=== PATIENT | male | born 1940 ===

== ENCOUNTER 2019-03-10 05:36 | Outpatient (RCR) | payer MEDICARE, MEDICAID, SELFPAY | END 2019-03-20 00:01 | LOC: LAB 05:36 | PROVIDERS: Family Provider Family Medicine; Visit Provider Nurse Practitioner Family | DX: E11.9 Type 2 diabetes mellitus without complications (principal); I10 Essential (primary) hypertension; R60.9 Edema, unspecified | CPT/HCPCS: 36415; 80048; 83036; 85025 ==

== ENCOUNTER 2019-03-23 15:20 | Outpatient (CLI) | payer MEDICARE, MEDICAID, SELFPAY | END 2019-03-23 15:21 | disposition home or self-care (01) | LOC: LAB 03-23 16:00 | PROVIDERS: Family Provider Family Medicine; PCP Family Medicine; Visit Provider Family Medicine | DX: D64.9 Anemia, unspecified (principal) | CPT/HCPCS: 82652 ==

== ENCOUNTER 2019-06-14 17:30 | Emergency (ER) | payer MEDICARE, SELFPAY ==
[2019-06-14] VITALS (7 sets, daily range): BP systolic 135–166; BP diastolic 66–92; PULSE 93–110; RESP 12–18; TEMP 36.8; O2SAT 93–100; BMI 18.6
--- NOTE | 2019-06-14 17:34 | ED_ITS ---
Entered by Nancy Singer, acting as scribe for Michael Paul DO Documented by User: An Britt MD 06/15/19 05:44 HPI - Psych General: Chief Complaint: Psychiatric Symptoms Stated Complaint: PSYCH EVAL Time Seen by Provider: 06/14/19 17:45 PFS ED PFSH: Social History Smoking and tobacco status: never smoked MDM - Psych MDM Narrative: Medical decision making narrative: Patient presents here with agitation and threatened the nurse at the halfway. Patient is medically cleared and we are seeking placement at this time for geriatric psych. Patient's care turned over to Dr. Paul. Lab Data: Labs: Lab Results 06/14/19 06/14/19 06/14/19 Range/Units 18:18 18:18 19:10 WBC 10.3 H (4.0-10.0) 10^3/ uL RBC 3.93 L (4.1-5.3) 10^6/u L Hgb 12.5 (11.7-16.6) g/dL Hct 39.3 L (42.0-52.0) % MCV 100.0 H (80-94) fL MCH 31.8 (28.0-34.0) pg MCHC 31.8 (30.0-36.0) g/dL RDW 12.5 (12.1-15.1) % Plt Count 444 H (130-400) 10^3/c mm MPV 9.5 (7.4-10.4) fL Neut % (Auto) 67.0 % Lymph % (Auto) 25.5 % Martin % (Auto) 6.3 % Eos % (Auto) 0.7 % Baso % (Auto) 0.1 % Neut # (Auto) 6.9 (1.8-7.7) 10^3/u L Lymph # (Auto) 2.6 (0.8-4.8) 10^3/u L Martin # (Auto) 0.7 (0.2-0.9) 10^3/u L Eos # (Auto) 0.1 (0.0-0.8) 10^3/u L Baso # (Auto) 0.0 (0.0-0.1) 10^3/u L Nucleated RBC % (a uto) 0 % Nucleated RBCs # 0.0 /100WBC Sodium 140 (136-145) mmol/L Potassium 4.5 (3.5-5.1) mmol/L Chloride 102 (98-107) mmol/L Carbon Dioxide 28 (22-29) mmol/L Anion Gap 14.5 (5-19) BUN 14 (8-23) mg/dL Creatinine 0.6 L (0.7-1.2) mg/dL Glucose 360 H (65-115) mg/dL POC Glucose (70-110) mg/dL Calculated Osmolal ity 301 H (285-295) mOsm/k g Calcium 9.9 (8.5-10.5) mg/dL Total Bilirubin 0.4 (0.15-1.2) mg/dL AST 12 (0-40) U/L ALT < 5 (0-41) U/L Alkaline Phosphata se 76 (40-130) IU/L Total Protein 7.3 (6.6-8.7) g/dL Albumin 3.7 (3.5-5.2) g/dL Globulin 3.6 (1.3-4.6) g/dL TSH 1.15 (0.27-4.20) uIU/ mL Urine Color Yellow (Yellow) Urine Appearance Clear (CLEAR) Urine pH 5 (5-7) Ur Specific Gravit y 1.020 (1.005-1.030) Urine Protein Trace (Negative) Urine Glucose (UA) 4+ H (Normal) Urine Ketones 1+ H (Negative) Urine Blood Neg (Negative) Urine Nitrate Negative (Negative) Urine Bilirubin Neg (NEGATIVE) Urine Urobilinogen 1 H (Negative) mg/dL Ur Leukocyte Miranda ase Negative (Negative) Urine RBC None (0-2) /hpf Urine WBC 0-4 H (0-5) /hpf Ur Squamous Epith Cells None (0-5) Urine Bacteria Trace (NONE) Urine Mucus 1+ Salicylates < 0.3 L (3-10) mg/dL Urine Opiates Scre en (Negative) ng/mL Acetaminophen < 5.0 L (10-30) ug/mL Ur Barbiturates Sc reen (Negative) ng/mL Ur Phencyclidine S crn (Negative) ng/mL Ur Amphetamines Sc reen (Negative) ng/mL U Benzodiazepines Scrn (Negative) ng/mL Urine Cocaine Scre en (Negative) ng/mL U Marijuana (THC) Screen (Negative) ng/mL Ethyl Alcohol < 10 (0-10) mg/dL Influenza Type A A g (Negative) POC Influenza B Ag (Negative) 06/14/19 06/15/19 06/15/19 Range/Units 19:10 00:45 02:05 WBC (4.0-10.0) 10^3/ uL RBC (4.1-5.3) 10^6/u L Hgb (11.7-16.6) g/dL Hct (42.0-52.0) % MCV (80-94) fL MCH (28.0-34.0) pg MCHC (30.0-36.0) g/dL RDW (12.1-15.1) % Plt Count (130-400) 10^3/c mm MPV (7.4-10.4) fL Neut % (Auto) % Lymph % (Auto) % Martin % (Auto) % Eos % (Auto) % Baso % (Auto) % Neut # (Auto) (1.8-7.7) 10^3/u L Lymph # (Auto) (0.8-4.8) 10^3/u L Martin # (Auto) (0.2-0.9) 10^3/u L Eos # (Auto) (0.0-0.8) 10^3/u L Baso # (Auto) (0.0-0.1) 10^3/u L Nucleated RBC % (a uto) % Nucleated RBCs # /100WBC Sodium (136-145) mmol/L Potassium (3.5-5.1) mmol/L Chloride (98-107) mmol/L Carbon Dioxide (22-29) mmol/L Anion Gap (5-19) BUN (8-23) mg/dL Creatinine (0.7-1.2) mg/dL Glucose (65-115) mg/dL POC Glucose 261 243 (70-110) mg/dL Calculated Osmolal ity (285-295) mOsm/k g Calcium (8.5-10.5) mg/dL Total Bilirubin (0.15-1.2) mg/dL AST (0-40) U/L ALT (0-41) U/L Alkaline Phosphata se (40-130) IU/L Total Protein (6.6-8.7) g/dL Albumin (3.5-5.2) g/dL Globulin (1.3-4.6) g/dL TSH (0.27-4.20) uIU/ mL Urine Color (Yellow) Urine Appearance (CLEAR) Urine pH (5-7) Ur Specific Gravit y (1.005-1.030) Urine Protein (Negative) Urine Glucose (UA) (Normal) Urine Ketones (Negative) Urine Blood (Negative) Urine Nitrate (Negative) Urine Bilirubin (NEGATIVE) Urine Urobilinogen (Negative) mg/dL Ur Leukocyte Miranda ase (Negative) Urine RBC (0-2) /hpf Urine WBC (0-5) /hpf Ur Squamous Epith Cells (0-5) Urine Bacteria (NONE) Urine Mucus Salicylates (3-10) mg/dL Urine Opiates Scre en Positive H (Negative) ng/mL Acetaminophen (10-30) ug/mL Ur Barbiturates Sc reen Negative (Negative) ng/mL Ur Phencyclidine S crn Negative (Negative) ng/mL Ur Amphetamines Sc reen Negative (Negative) ng/mL U Benzodiazepines Scrn Negative (Negative) ng/mL Urine Cocaine Scre en Negative (Negative) ng/mL U Marijuana (THC) Screen Negative (Negative) ng/mL Ethyl Alcohol (0-10) mg/dL Influenza Type A A g (Negative) POC Influenza B Ag (Negative) 06/15/19 Range/Units 08:35 WBC (4.0-10.0) 10^3/ uL RBC (4.1-5.3) 10^6/u L Hgb (11.7-16.6) g/dL Hct (42.0-52.0) % MCV (80-94) fL MCH (28.0-34.0) pg MCHC (30.0-36.0) g/dL RDW (12.1-15.1) % Plt Count (130-400) 10^3/c mm MPV (7.4-10.4) fL Neut % (Auto) % Lymph % (Auto) % Martin % (Auto) % Eos % (Auto) % Baso % (Auto) % Neut # (Auto) (1.8-7.7) 10^3/u L Lymph # (Auto) (0.8-4.8) 10^3/u L Martin # (Auto) (0.2-0.9) 10^3/u L Eos # (Auto) (0.0-0.8) 10^3/u L Baso # (Auto) (0.0-0.1) 10^3/u L Nucleated RBC % (a uto) % Nucleated RBCs # /100WBC Sodium (136-145) mmol/L Potassium (3.5-5.1) mmol/L Chloride (98-107) mmol/L Carbon Dioxide (22-29) mmol/L Anion Gap (5-19) BUN (8-23) mg/dL Creatinine (0.7-1.2) mg/dL Glucose (65-115) mg/dL POC Glucose (70-110) mg/dL Calculated Osmolal ity (285-295) mOsm/k g Calcium (8.5-10.5) mg/dL Total Bilirubin (0.15-1.2) mg/dL AST (0-40) U/L ALT (0-41) U/L Alkaline Phosphata se (40-130) IU/L Total Protein (6.6-8.7) g/dL Albumin (3.5-5.2) g/dL Globulin (1.3-4.6) g/dL TSH (0.27-4.20) uIU/ mL Urine Color (Yellow) Urine Appearance (CLEAR) Urine pH (5-7) Ur Specific Gravit y (1.005-1.030) Urine Protein (Negative) Urine Glucose (UA) (Normal) Urine Ketones (Negative) Urine Blood (Negative) Urine Nitrate (Negative) Urine Bilirubin (NEGATIVE) Urine Urobilinogen (Negative) mg/dL Ur Leukocyte Miranda ase (Negative) Urine RBC (0-2) /hpf Urine WBC (0-5) /hpf Ur Squamous Epith Cells (0-5) Urine Bacteria (NONE) Urine Mucus Salicylates (3-10) mg/dL Urine Opiates Scre en (Negative) ng/mL Acetaminophen (10-30) ug/mL Ur Barbiturates Sc reen (Negative) ng/mL Ur Phencyclidine S crn (Negative) ng/mL Ur Amphetamines Sc reen (Negative) ng/mL U Benzodiazepines Scrn (Negative) ng/mL Urine Cocaine Scre en (Negative) ng/mL U Marijuana (THC) Screen (Negative) ng/mL Ethyl Alcohol (0-10) mg/dL Influenza Type A A g Negative (Negative) POC Influenza B Ag Negative (Negative) Imaging Data^: CXR: Attestation: I personally reviewed and interpreted this imaging study as follows: My impression: no acute abnormality CT Head: Radiologist's impression: [address] [address] [address] Scan Report Signed Patient: Shaun Beltran Unit #: [id number] : 1940 Age/Sex: 78 / M ADM Date: 06/14/19 Loc: ER Room/Bed: Attending Dr: Ordering Provider/Ordering MD: An Britt MD Date of Service: 06/15/19 Procedure(s): CT head wo con* [id number] Accession Number(s): [id number] Report Number: [id number] PROCEDURE INFORMATION: Exam: CT Head Without Contrast Exam date and time: 06/15/2019 1:57 AM Age: 78 years old Clinical indication: Altered mental status/memory loss; Confusion or disorientation TECHNIQUE: Imaging protocol: Computed tomography of the head without contrast. Total DLP: 840.91 mGy-cm Radiation optimization: All CT scans at this facility use at least one of these dose optimization techniques: automated exposure control; mA and/or kV adjustment per patient size (includes targeted exams where dose is matched to clinical indication); or iterative reconstruction. COMPARISON: CT head wo con* [id number] 07/16/2016 10:39 PM FINDINGS: Limitations: Motion artifacts on some of the slices. Brain: Enlarged subarachnoid spaces, especially prominent in each anterior middle cranial fossa, again evident. Minimal chronic white matter disease still likely. No suggestion of edema in the brain. No hemorrhage. Ventricles: Continued normal 4th ventricle. No change in the slight enlargement of the 3rd and lateral ventricles. 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 Sinuses: Minimal mucosal thickening in the right maxillary sinus. Still no air-fluid levels. Mastoid air cells: Mastoids still unremarkable. Soft tissues: Unremarkable. Vasculature: Continued arterial calcifications. CT/CT head wo con* [id number] IMPRESSION: No acute findings. Chronic abnormalities detailed above. Discharge Plan Discharge Patient Disposition: Xfer Psychiatric Hosp Clinical Impression: Agitation Condition: Stable Referrals: Jack Purcell DO [Primary Care Provider] - Discharge Date/Time: 06/15/19 14:32 Sign Out Sign Out Data: Patient Sign Out occurred on 06/15/19 at 06:04. Patient's care was discussed, and care was transferred from to Michael Paul DO. Coding Level of Care Code ED English Composition Teacher for Chg Fwd Exam Comprehensive Documented by User: Michael Paul DO 06/15/19 16:55 HPI - Psych General: Chief Complaint: Psychiatric Symptoms Stated Complaint: PSYCH EVAL Time Seen by Provider: 06/14/19 17:45 Source: patient and EMS Mode of arrival: EMS Limitations: no limitations History of Present Illness: HPI Narrative: 78 yo male presents from the halfway. pt has no complaints. per report from the halfway the pt was aggressive and none compliant with his medications at halfway, and he told a nursing he would wipe up the floor with her blood. pt denies any other symptoms at this time. MD complaint: other (per halfway the pt has been agressive and not taking his medications) Onset (ago): hour(s) (just [employer]) Duration: getting worse History of same: No Relieving factors: none Exacerbating factors: none Associated psychiatric symptoms: none Associated symptoms: Reports no associated symptoms Treatments prior to arrival: none Review of Systems General: Reports: 10 or more systems reviewed and unremarkable except in HPI and below Const: Denies: fever, chills, body aches, change in appetite, fatigue or malaise ENMT: Denies: throat pain, ear pain, nasal discharge or nasal congestion Card: Denies: chest pain, edema, shortness of breath on exertion or shortness of breath when lying down Resp: Denies: shortness of breath, productive cough or non-productive cough GI: Denies: abdominal pain, nausea, vomiting, vomiting blood, coffee grounds in vomit, diarrhea, constipation, bloating, blood in stool or black tarry stool : Denies: flank pain, painful urination, urinary frequency or urinary urgency Skin/Breast: Denies: rash or itching PFSH ED PFSH: Social History Smoking and tobacco status: never smoked Physical Exam Const: COMMON NORMALS: no apparent distress GENERAL APPEARANCE: cooperative and comfortable ORIENTATION/CONSCIOUSNESS: Yes awake, Yes oriented to person, Yes oriented to place and Yes oriented to time HENMT: COMMON NORMALS: normocephalic, head/scalp atraumatic, hearing grossly normal bilaterally, external ears normal, EAC's normal, TM's normal bilaterally, nasal mucous membranes and turbinates normal, moist oral mucous membranes and oropharynx normal HEAD & SCALP: normocephalic and atraumatic NOSE: nasal mucous membranes and turbinates normal EXTERNAL EAR: Yes external ears normal EXTERNAL AUDITORY CANAL: EAC's normal TYMPANIC MEMBRANE: TM's normal bilaterally Eye: COMMON NORMALS: PERRL, EOMs intact bilaterally, conjunctivae normal and no scleral icterus CONJUNCTIVA: Yes conjunctivae normal PUPIL: Yes PERRL Neck/C-Spine: COMMON NORMALS: full ROM, no lymphadenopathy, supple and no JVD Lymph: LYMPHATIC: no lymphadenopathy noted and no lymphedema noted Resp: COMMON NORMALS: normal respiratory effort, no retractions, no use of accessory muscles and clear to auscultation bilaterally AUSCULTATION: clear to auscultation bilaterally Cardio: COMMON NORMALS: no JVD, regular rate, regular rhythm and no murmurs RATE: regular rate RHYTHM: regular rhythm GI: COMMON NORMALS: soft to palpation and no hepatosplenomegaly AUSCULTATION: Yes normoactive bowel sounds PALPATION: Yes soft, No tender, No guarding and Yes no hepatosplenomegaly Neuro: SENSORIUM/ORIENTATION: Yes oriented to person, Yes oriented to place and Yes oriented to time Skin: COMMON NORMALS: no rashes or lesions noted GENERAL SKIN EXAM: no rashes or lesions noted MDM - Psych MDM Narrative: Medical decision making narrative: Care assumed a change of shift from Dr. Alfaro. We are still trying to make arrangements for transfer. Patient remained stable eye exam unchanged he did have a few outbursts but were only verbal and did not need any chemical or physical restraints. Patient eventually was [facility] at [facility] and was transferred via EMS. Lab Data: Labs: Lab Results 06/14/19 06/14/19 06/14/19 Range/Units 18:18 18:18 19:10 WBC 10.3 H (4.0-10.0) 10^3/ uL RBC 3.93 L (4.1-5.3) 10^6/u L Hgb 12.5 (11.7-16.6) g/dL Hct 39.3 L (42.0-52.0) % MCV 100.0 H (80-94) fL MCH 31.8 (28.0-34.0) pg MCHC 31.8 (30.0-36.0) g/dL RDW 12.5 (12.1-15.1) % Plt Count 444 H (130-400) 10^3/c mm MPV 9.5 (7.4-10.4) fL Neut % (Auto) 67.0 % Lymph % (Auto) 25.5 % Martin % (Auto) 6.3 % Eos % (Auto) 0.7 % Baso % (Auto) 0.1 % Neut # (Auto) 6.9 (1.8-7.7) 10^3/u L Lymph # (Auto) 2.6 (0.8-4.8) 10^3/u L Martin # (Auto) 0.7 (0.2-0.9) 10^3/u L Eos # (Auto) 0.1 (0.0-0.8) 10^3/u L Baso # (Auto) 0.0 (0.0-0.1) 10^3/u L Nucleated RBC % (a uto) 0 % Nucleated RBCs # 0.0 /100WBC Sodium 140 (136-145) mmol/L Potassium 4.5 (3.5-5.1) mmol/L Chloride 102 (98-107) mmol/L Carbon Dioxide 28 (22-29) mmol/L Anion Gap 14.5 (5-19) BUN 14 (8-23) mg/dL Creatinine 0.6 L (0.7-1.2) mg/dL Glucose 360 H (65-115) mg/dL POC Glucose (70-110) mg/dL Calculated Osmolal ity 301 H (285-295) mOsm/k g Calcium 9.9 (8.5-10.5) mg/dL Total Bilirubin 0.4 (0.15-1.2) mg/dL AST 12 (0-40) U/L ALT < 5 (0-41) U/L Alkaline Phosphata se 76 (40-130) IU/L Total Protein 7.3 (6.6-8.7) g/dL Albumin 3.7 (3.5-5.2) g/dL Globulin 3.6 (1.3-4.6) g/dL TSH 1.15 (0.27-4.20) uIU/ mL Urine Color Yellow (Yellow) Urine Appearance Clear (CLEAR) Urine pH 5 (5-7) Ur Specific Gravit y 1.020 (1.005-1.030) Urine Protein Trace (Negative) Urine Glucose (UA) 4+ H (Normal) Urine Ketones 1+ H (Negative) Urine Blood Neg (Negative) Urine Nitrate Negative (Negative) Urine Bilirubin Neg (NEGATIVE) Urine Urobilinogen 1 H (Negative) mg/dL Ur Leukocyte Miranda ase Negative (Negative) Urine RBC None (0-2) /hpf Urine WBC 0-4 H (0-5) /hpf Ur Squamous Epith Cells None (0-5) Urine Bacteria Trace (NONE) Urine Mucus 1+ Salicylates < 0.3 L (3-10) mg/dL Urine Opiates Scre en (Negative) ng/mL Acetaminophen < 5.0 L (10-30) ug/mL Ur Barbiturates Sc reen (Negative) ng/mL Ur Phencyclidine S crn (Negative) ng/mL Ur Amphetamines Sc reen (Negative) ng/mL U Benzodiazepines Scrn (Negative) ng/mL Urine Cocaine Scre en (Negative) ng/mL U Marijuana (THC) Screen (Negative) ng/mL Ethyl Alcohol < 10 (0-10) mg/dL Influenza Type A A g (Negative) POC Influenza B Ag (Negative) 06/14/19 06/15/19 06/15/19 Range/Units 19:10 00:45 02:05 WBC (4.0-10.0) 10^3/ uL RBC (4.1-5.3) 10^6/u L Hgb (11.7-16.6) g/dL Hct (42.0-52.0) % MCV (80-94) fL MCH (28.0-34.0) pg MCHC (30.0-36.0) g/dL RDW (12.1-15.1) % Plt Count (130-400) 10^3/c mm MPV (7.4-10.4) fL Neut % (Auto) % Lymph % (Auto) % Martin % (Auto) % Eos % (Auto) % Baso % (Auto) % Neut # (Auto) (1.8-7.7) 10^3/u L Lymph # (Auto) (0.8-4.8) 10^3/u L Martin # (Auto) (0.2-0.9) 10^3/u L Eos # (Auto) (0.0-0.8) 10^3/u L Baso # (Auto) (0.0-0.1) 10^3/u L Nucleated RBC % (a uto) % Nucleated RBCs # /100WBC Sodium (136-145) mmol/L Potassium (3.5-5.1) mmol/L Chloride (98-107) mmol/L Carbon Dioxide (22-29) mmol/L Anion Gap (5-19) BUN (8-23) mg/dL Creatinine (0.7-1.2) mg/dL Glucose (65-115) mg/dL POC Glucose 261 243 (70-110) mg/dL Calculated Osmolal ity (285-295) mOsm/k g Calcium (8.5-10.5) mg/dL Total Bilirubin (0.15-1.2) mg/dL AST (0-40) U/L ALT (0-41) U/L Alkaline Phosphata se (40-130) IU/L Total Protein (6.6-8.7) g/dL Albumin (3.5-5.2) g/dL Globulin (1.3-4.6) g/dL TSH (0.27-4.20) uIU/ mL Urine Color (Yellow) Urine Appearance (CLEAR) Urine pH (5-7) Ur Specific Gravit y (1.005-1.030) Urine Protein (Negative) Urine Glucose (UA) (Normal) Urine Ketones (Negative) Urine Blood (Negative) Urine Nitrate (Negative) Urine Bilirubin (NEGATIVE) Urine Urobilinogen (Negative) mg/dL Ur Leukocyte Miranda ase (Negative) Urine RBC (0-2) /hpf Urine WBC (0-5) /hpf Ur Squamous Epith Cells (0-5) Urine Bacteria (NONE) Urine Mucus Salicylates (3-10) mg/dL Urine Opiates Scre en Positive H (Negative) ng/mL Acetaminophen (10-30) ug/mL Ur Barbiturates Sc reen Negative (Negative) ng/mL Ur Phencyclidine S crn Negative (Negative) ng/mL Ur Amphetamines Sc reen Negative (Negative) ng/mL U Benzodiazepines Scrn Negative (Negative) ng/mL Urine Cocaine Scre en Negative (Negative) ng/mL U Marijuana (THC) Screen Negative (Negative) ng/mL Ethyl Alcohol (0-10) mg/dL Influenza Type A A g (Negative) POC Influenza B Ag (Negative) 06/15/19 Range/Units 08:35 WBC (4.0-10.0) 10^3/ uL RBC (4.1-5.3) 10^6/u L Hgb (11.7-16.6) g/dL Hct (42.0-52.0) % MCV (80-94) fL MCH (28.0-34.0) pg MCHC (30.0-36.0) g/dL RDW (12.1-15.1) % Plt Count (130-400) 10^3/c mm MPV (7.4-10.4) fL Neut % (Auto) % Lymph % (Auto) % Martin % (Auto) % Eos % (Auto) % Baso % (Auto) % Neut # (Auto) (1.8-7.7) 10^3/u L Lymph # (Auto) (0.8-4.8) 10^3/u L Martin # (Auto) (0.2-0.9) 10^3/u L Eos # (Auto) (0.0-0.8) 10^3/u L Baso # (Auto) (0.0-0.1) 10^3/u L Nucleated RBC % (a uto) % Nucleated RBCs # /100WBC Sodium (136-145) mmol/L Potassium (3.5-5.1) mmol/L Chloride (98-107) mmol/L Carbon Dioxide (22-29) mmol/L Anion Gap (5-19) BUN (8-23) mg/dL Creatinine (0.7-1.2) mg/dL Glucose (65-115) mg/dL POC Glucose (70-110) mg/dL Calculated Osmolal ity (285-295) mOsm/k g Calcium (8.5-10.5) mg/dL Total Bilirubin (0.15-1.2) mg/dL AST (0-40) U/L ALT (0-41) U/L Alkaline Phosphata se (40-130) IU/L Total Protein (6.6-8.7) g/dL Albumin (3.5-5.2) g/dL Globulin (1.3-4.6) g/dL TSH (0.27-4.20) uIU/ mL Urine Color (Yellow) Urine Appearance (CLEAR) Urine pH (5-7) Ur Specific Gravit y (1.005-1.030) Urine Protein (Negative) Urine Glucose (UA) (Normal) Urine Ketones (Negative) Urine Blood (Negative) Urine Nitrate (Negative) Urine Bilirubin (NEGATIVE) Urine Urobilinogen (Negative) mg/dL Ur Leukocyte Miranda ase (Negative) Urine RBC (0-2) /hpf Urine WBC (0-5) /hpf Ur Squamous Epith Cells (0-5) Urine Bacteria (NONE) Urine Mucus Salicylates (3-10) mg/dL Urine Opiates Scre en (Negative) ng/mL Acetaminophen (10-30) ug/mL Ur Barbiturates Sc reen (Negative) ng/mL Ur Phencyclidine S crn (Negative) ng/mL Ur Amphetamines Sc reen (Negative) ng/mL U Benzodiazepines Scrn (Negative) ng/mL Urine Cocaine Scre en (Negative) ng/mL U Marijuana (THC) Screen (Negative) ng/mL Ethyl Alcohol (0-10) mg/dL Influenza Type A A g Negative (Negative) POC Influenza B Ag Negative (Negative) Discharge Plan Discharge Patient Disposition: Xfer Psychiatric Hosp Clinical Impression: Agitation Condition: Stable Referrals: Jack Purcell DO [Primary Care Provider] - Discharge Date/Time: 06/15/19 14:32 Sign Out Sign Out Data: Patient Sign Out occurred on 06/15/19 at 06:04. Patient's care was discussed, and care was transferred from to Michael Paul DO. Coding Level of Care Code ED English Composition Teacher for Chg Fwd Exam Comprehensive The documentation recorded by the Enmanuel lyles Bridget Annette, maximiliano napoles flects the service I personally performed and the decisions made by Beverly boyd Curtis L, DO Jun 14, 2019 17:30
--- NOTE | 2019-06-14 18:01 | XR_ITS ---
WS: [id number] Portable AP upright chest, 06/14/2019 Clinical Data: cp Comparison: Portable chest, 03/19/2018. Findings: No nodules, masses or effusions are seen. The heart is normal. The pulmonary vascularity is not increased. No pneumonia or pneumothorax is seen. XR/XR chest 1V portable [id number] Impression: Negative chest.
--- NOTE | 2019-06-14 18:02 | ECG_ITS ---
Measurements Intervals [place] Rate: 91 P: 58 OH: 143 QRS: -22 QRSD: 94 T: 70 QT: 356 QTc: 439 SINUS RHYTHM BORDERLINE LEFT AXIS DEVIATION [QRS AXIS < -20] POSSIBLE RIGHT VENTRICULAR CONDUCTION DELAY [RSR (QR) IN V1/V2] Compared to ECG 03/19/2018 14:15:08 Sinus tachycardia no longer present ST (T wave) deviation no longer present Electronically Signed On 06-16-2019 9:44:07 CDT by Nany Shah M.D. [email or web address]
[2019-06-14 18:26] LABS: Basophils % 0.1 %; Eosinophils # 0.1 10^3/uL (0.0-0.8); Eosinophils % 0.7 %; Hematocrit 39.3 % (42.0-52.0); Hemoglobin 12.5 g/dL (11.7-16.6); Lymphocytes # 2.6 10^3/uL (0.8-4.8); Lymphocytes % 25.5 %; Mean Corpuscular HGB Conc 31.8 g/dL (30.0-36.0); Mean Corpuscular Hemoglobin 31.8 pg (28.0-34.0); Mean Platelet Volume 9.5 fL (7.4-10.4); Monocytes # 0.7 10^3/uL (0.2-0.9); Monocytes % 6.3 %; Neutrophils # 6.9 10^3/uL (1.8-7.7); Nucleated Red Blood Cells % 0 %; Platelet Count 444 10^3/cmm (130-400); Red Blood Count 3.93 10^6/uL (4.1-5.3); Red Cell Distribution Width 12.5 % (12.1-15.1); White Blood Count 10.3 10^3/uL (4.0-10.0)
[2019-06-14 19:00] LABS: Alanine Aminotransferase < 5 U/L (0-41); Albumin Level 3.7 g/dL (3.5-5.2); Alkaline Phosphatase 76 IU/L (40-130); Anion Gap 14.5 (5-19); Aspartate Amino Transferase 12 U/L (0-40); Blood Urea Nitrogen 14 mg/dL (8-23); Calcium 9.9 mg/dL (8.5-10.5); Carbon Dioxide 28 mmol/L (22-29); Chloride 102 mmol/L (98-107); Globulin 3.6 g/dL (1.3-4.6); Glucose 360 mg/dL (65-115); Osmolality Calculated 301 mOsm/kg (285-295); Potassium 4.5 mmol/L (3.5-5.1); Sodium 140 mmol/L (136-145); Thyroid Stimulating Hormone 1.15 uIU/mL (0.27-4.20); Total Bilirubin 0.4 mg/dL (0.15-1.2); Total Protein 7.3 g/dL (6.6-8.7)
[2019-06-14 19:06] LABS: Acetaminophen < 5.0 ug/mL (10-30); Alcohol Level < 10 mg/dL (0-10); Salicylate < 0.3 mg/dL (3-10)
--- NOTE | 2019-06-14 19:08 | PC.NURSE ---
PATIENT REPORT RECEIVED FROM [facility] AND CARE TRANSFERRED TO [facility]
[2019-06-14 19:27] LABS: Add Urine Microscopic? YES; Bilirubin Urine Neg (NEGATIVE); Blood Urine Neg (Negative); Glucose Urine UA 4+ (Normal); Ketones Urine 1+ (Negative); Leukocyte Esterase Urine Negative (Negative); Nitrate Urine Negative (Negative); Protein Urine Trace (Negative); Urine Appearance Clear (CLEAR); Urine Color Yellow (Yellow); Urobilinogen Urine 1 mg/dL (Negative); pH Urine 5 (5-7)
[2019-06-14 19:31] LABS: Add Urine Culture? No; Bacteria Urine TRACE; Mucus Urine 1+; WBC Urine 0-4 /hpf (0-5)
[2019-06-14 19:39] LABS: Amphetamines Screen Urine Negative (Negative); Barbiturates Screen Urine Negative (Negative); Benzodiazepines Screen Urine Negative (Negative); Cocaine Screen Urine Negative (Negative); Opiate Screen Urine Positive (Negative); PCP Screen Urine Negative (Negative); THC Screen Urine Negative (Negative)
--- NOTE | 2019-06-14 20:28 | PC.NURSE ---
Patient refused insulin medication ordered by HCP. Patient jerked arm away from nurse when nurse told patient what medicine she was trying to give. Nurse informed the HCP and will try again later to give medication on HCP approval.
--- NOTE | 2019-06-14 20:45 | PC.NURSE ---
Patient refused insulin shot when nurse tried to give medication to patient. Patient stated to nurse fuck you and your shot i am not taking it . Nurse informed HCP of what happened with patient.
--- NOTE | 2019-06-14 22:32 | PC.NURSE ---
[facility] CALLED FOR PATIENT, FACILITY REQUESTED PATIENT INFORMATION TO BE FAXED, NURSE FAXED ALL INFORMATION TO FACILITY.
--- NOTE | 2019-06-14 23:59 | PC.NURSE ---
CALLED [facility] FOR UPDATE, [facility] STATED THAT THEY ARE STILL REVIEWING THE PAPERWORK AND WILL CALL WHEN THEY ARE DONE
[2019-06-15] VITALS (12 sets, daily range): BP systolic 150–186; BP diastolic 88–105; PULSE 92–116; RESP 12–18; O2SAT 97–100
--- NOTE | 2019-06-15 00:47 | PC.NURSE ---
BEDSIDE BLOOD GLUCOSE 261, TAKEN BY TECH AND SHOWN TO NURSE
[2019-06-15 00:51] LABS: Glucose Point of Care 261 mg/dL (70-110)
--- NOTE | 2019-06-15 01:50 | PC.NURSE ---
[facility] called back and denied patient acceptance. HCP notified. Nurse to call more facilities.
--- NOTE | 2019-06-15 01:56 | CTR_ITS ---
PROCEDURE INFORMATION: Exam: CT Head Without Contrast Exam date and time: 06/15/2019 1:57 AM Age: 78 years old Clinical indication: Altered mental status/memory loss; Confusion or disorientation TECHNIQUE: Imaging protocol: Computed tomography of the head without contrast. Total DLP: 840.91 mGy-cm Radiation optimization: All CT scans at this facility use at least one of these dose optimization techniques: automated exposure control; mA and/or kV adjustment per patient size (includes targeted exams where dose is matched to clinical indication); or iterative reconstruction. COMPARISON: CT head wo con* [id number] 07/16/2016 10:39 PM FINDINGS: Limitations: Motion artifacts on some of the slices. Brain: Enlarged subarachnoid spaces, especially prominent in each anterior middle cranial fossa, again evident. Minimal chronic white matter disease still likely. No suggestion of edema in the brain. No hemorrhage. Ventricles: Continued normal 4th ventricle. No change in the slight enlargement of the 3rd and lateral ventricles. 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 Sinuses: Minimal mucosal thickening in the right maxillary sinus. Still no air-fluid levels. Mastoid air cells: Mastoids still unremarkable. Soft tissues: Unremarkable. Vasculature: Continued arterial calcifications. CT/CT head wo con* [id number] IMPRESSION: No acute findings. Chronic abnormalities detailed above. Radiation Dose CTDIVOL = (mGy): DLP = 840.91 (mGy-cm)
--- NOTE | 2019-06-15 02:09 | PC.NURSE ---
bedside blood glucose 243
[2019-06-15 02:15] LABS: Glucose Point of Care 243 mg/dL (70-110)
--- NOTE | 2019-06-15 02:31 | PC.NURSE ---
Nurse called [facility] for placement and is awaiting CT results before faxing patient information to facility. Nurse called two other facilities but they did not have any openings for male beds.
--- NOTE | 2019-06-15 03:17 | PC.NURSE ---
CALLED [facility] AND FAXED PATIENT INFORMATION TO FACILITY
--- NOTE | 2019-06-15 04:36 | PC.NURSE ---
CALLED [facility] BUT NO ANSWER
--- NOTE | 2019-06-15 04:37 | PC.NURSE ---
CALLED [facility] FOR PLACEMENT FOR PATIENT BUT FACILITY STATED THEY HAD NO BEDS AVAILABLE.
--- NOTE | 2019-06-15 04:49 | PC.NURSE ---
CALLED [facility]OLUT[facility] AT [facility] AND FAXED THEM PATIENT INFORMATION AT THEIR REQUEST.
--- NOTE | 2019-06-15 05:13 | PC.NURSE ---
NURSE CALLED [facility] IN [place], [place] AND FACILITY REQUESTED PAPERWORK ON PATIENT. NURSE FAXED INFORMATION TO FACILITY.
--- NOTE | 2019-06-15 06:08 | PC.NURSE ---
PATIENT SLEEPING IN ROOM WITH LIGHTS OFF
--- NOTE | 2019-06-15 06:13 | PC.NURSE ---
[facility] DENIED PATIENT ADMIT IN FACILITY
--- NOTE | 2019-06-15 06:50 | PC.NURSE ---
PATIENT GIVEN WARM BLANKET AT REQUEST. PATIENT WOULD NOT ALLOW NURSE TO TAKE VITAL SIGNS.
--- NOTE | 2019-06-15 08:06 | PC.NURSE ---
Papers faxed to [facility] for possible admission.
--- NOTE | 2019-06-15 08:55 | PC.NURSE ---
Diabetic tray brought to pt. Pt being fed by DICE TABLE OPERATOR. No other needs at this time.
[2019-06-15 09:10] LABS: Influenza A by IFA Negative (Negative); Influenza B by IFA Negative (Negative)
--- NOTE | 2019-06-15 10:39 | PC.NURSE ---
Pt incontinent of urine. Pt's underwear and bedding changed. Pt repositioned. No other needs at this time.
== END 2019-06-15 14:32 ==
PROVIDERS: Emergency Medicine; Emergency Provider Family Medicine; Family Provider Family Medicine; PCP Family Medicine
DX: R45.1 Restlessness and agitation (principal)
CPT/HCPCS: 12345; 36416; 70450; 71045; 80053; 80306; 80307; 81001; 82962; 84443; 85025; 87804; 93005; 99284

== ENCOUNTER 2022-02-04 12:26 | Outpatient (CLI) | payer MEDICARE, MEDICAID, SELFPAY ==
[2022-02-04 12:41] LABS: Basophils % 0.1 %; Hematocrit 28.3 % (42.0-52.0); Hemoglobin 8.8 g/dL (11.7-16.6); Lymphocytes # 1.4 10^3/uL (0.8-4.8); Lymphocytes % 12.3 %; Mean Corpuscular HGB Conc 31.1 g/dL (30.0-36.0); Mean Corpuscular Hemoglobin 31.5 pg (28.0-34.0); Mean Corpuscular Volume 101.4 fl (80-94); Mean Platelet Volume 9.4 fL (7.4-10.4); Monocytes # 1.3 10^3/uL (0.2-0.9); Monocytes % 11.2 %; Neutrophils # 8.83 10^3/uL (1.8-7.7); Neutrophils % 75.7 %; Nucleated Red Blood Cells % 0 %; Platelet Count 283 10^3/cmm (130-400); Red Blood Count 2.79 10^6/uL (4.1-5.3); Red Cell Distribution Width 14.1 % (12.1-15.1); White Blood Count 11.7 10^3/uL (4.0-10.0)
[2022-02-04 13:02] LABS: Anion Gap 16.6 (5-19); Blood Urea Nitrogen 33 mg/dL (8-23); Calcium 8.2 mg/dL (8.5-10.5); Carbon Dioxide 24 mmol/L (22-29); Chloride 102 mmol/L (98-107); Glucose 188 mg/dL (65-115); Iron 8 ug/dL (59-158); Osmolality Calculated 298 mOsm/kg (285-295); Percent Saturation 4.6 % (20-50); Potassium 4.6 mmol/L (3.5-5.1); Sodium 138 mmol/L (136-145); Total Iron Binding Capacity 171 mcg/dl; Unsaturated Iron Binding 163 ug/dL (112-347)
== END 2022-02-04 12:27 | disposition home or self-care (01) ==
PROVIDERS: PCP Family Medicine; Visit Provider Nurse Practitioner Family
DX: D64.9 Anemia, unspecified (principal)
CPT/HCPCS: 80048; 83540; 83550; 83735; 85025

== ENCOUNTER 2022-02-07 19:08 | Outpatient (CLI) | payer MEDICARE, MEDICAID, SELFPAY ==
[2022-02-07 20:48] LABS: Influenza A by IFA negative (Negative); Influenza B by IFA negative (Negative)
== END 2022-02-07 19:09 | disposition home or self-care (01) ==
PROVIDERS: PCP Family Medicine; Visit Provider Nurse Practitioner Family
DX: Z01.89 Encounter for other specified special examinations (principal)
CPT/HCPCS: 87804

== ENCOUNTER 2023-01-26 10:51 | Inpatient (IN) | payer MEDICARE, MEDICAID, SELFPAY ==
[2023-01-26] VITALS (7 sets, daily range): BP systolic 123–152; BP diastolic 70–93; PULSE 91–115; RESP 17–31; TEMP 36.4–36.9; O2SAT 92–99
--- NOTE | 2023-01-26 10:52 | XR_ITS ---
WS: [id number] Portable AP semiupright chest, 01/26/2023 Clinical Data: sob Comparison: Portable chest, 06/14/2019. Findings: There is a patchy opacity in both lower lobes. There is a dense opacity in the right lower lobe which may represent effusion, atelectasis and consolidation. The heart is not enlarged. No nodul es or masses are seen. No pneumothorax is present. The aortic arch shows minimal tortuosity. Impression: 1. Probable bilateral pulmonary vascular congestion. 2. Possible right lower lobe consolidation, atelectasis and/or effusion.
--- NOTE | 2023-01-26 10:58 | ECG_ITS ---
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 Measurements Intervals [place] Rate: 114 P: 34 ND: 123 QRS: 12 QRSD: 92 T: 108 QT: 366 QTc: 505 Interpretive Statements SINUS TACHYCARDIA WITH OCCASIONAL ECTOPIC PREMATURE COMPLEXES POSSIBLE RIGHT VENTRICULAR CONDUCTION DELAY [RSR (QR) IN V1/V2] MODERATE ST DEPRESSION [0.05+ mV ST DEPRESSION] ABNORMAL QRS-T ANGLE [QRS-T AXIS DIFFERENCE > 60] Compared to ECG 06/14/2019 18:18:41 ST (T wave) deviation now present Sinus rhythm no longer present Electronically Signed On 01-27-2023 0:41:50 PSYCHOTHERAPIST SOCIAL WORKER by Brad Lan M.D. [email or web address]nextsocialmer[facility].[employer]/store/[id number]
--- NOTE | 2023-01-26 11:01 | W.ED.SOB ---
HPI - SOB/Dyspnea General: Chief Complaint: Shortness of Breath/Dyspnea Stated Complaint: SOB, Covid Time Seen by Provider: 01/26/23 10:52 Source: EMS Mode of arrival: EMS Limitations: altered mental status History of Present Illness: HPI Narrative: 82-year-old male with multiple medical issues here from longterm. Patient is altered but is altered at baseline able to tell me his name but not really able to answer other questions he is bedbound as well. Per EMS and longterm he just got off COVID precautions the last 2 to 3 days states that he had vomited this morning after eating and started having some dyspnea. Patient is in no distress here pulse ox is normal no known fevers denies any pain anywhere. Review of Systems General: Reports: ROS unobtainable due to mental status PFSH ED PFSH: Social History Smoking and tobacco/nicotine status: never used tobacco/nicotine Course Vital Signs: Vital signs: Vital Signs Temperature 98.5 F 01/26/23 10:59 Pulse Rate 105 H 01/26/23 12:36 Respiratory Rate 30 H 01/26/23 12:36 Blood Pressure 141/93 01/26/23 12:36 Pulse Oximetry 99 01/26/23 12:36 Oxygen Delivery Me thod Room Air 01/26/23 12:09 MDM - SOB/Dyspnea Medical Decision Making Patient presents here with cough along with dyspnea likely has an aspiration pneumonia does have elevated lactate blood pressure here has been normal start him on IV antibiotics blood cultures were ordered he has been stable however admit to [facility] at this time. Medical Records I reviewed the patient's medical records. Lab Data I reviewed the patient's lab results. 01/26/23 11:05 01/26/23 11:05 Labs/Radiology: Laboratory Results WBC 11.08 10^3/uL (3.29-11.43) 01/26/23 11:05 RBC 2.89 10^6/uL (3.85-5.65) L 01/26/23 11:05 Hgb 8.70 g/dL (11.27-16.99) L 01/26/23 11:05 Hct 29.2 % (37-53) L 01/26/23 11:05 MCV 101.0 fl (82-101) 01/26/23 11:05 MCH 30.1 pg (27-33) 01/26/23 11:05 MCHC 29.8 g/dL (30-55) L 01/26/23 11:05 RDW 16.1 % (12.1-15.1) H 01/26/23 11:05 Plt Count 436 10^3/cmm (157-399) H 01/26/23 11:05 MPV 10.0 fL (7.4-10.4) 01/26/23 11:05 Neut % (Auto) 65.3 % 01/26/23 11:05 Lymph % (Auto) 25.5 % 01/26/23 11:05 Moore % (Auto) 7.4 % 01/26/23 11:05 Eos % (Auto) 0.4 % 01/26/23 11:05 Baso % (Auto) 0.2 % 01/26/23 11:05 Neut # (Auto) 7.25 10^3/uL (1.8-7.7) 01/26/23 11:05 Lymph # (Auto) 2.8 10^3/uL (0.8-4.8) 01/26/23 11:05 Moore # (Auto) 0.8 10^3/uL (0.2-0.9) 01/26/23 11:05 Eos # (Auto) 0.0 10^3/uL (0.0-0.8) 01/26/23 11:05 Baso # (Auto) 0.0 10^3/uL (0.0-0.1) 01/26/23 11:05 Nucleated RBC % (auto) 0 % 01/26/23 11:05 Nucleated RBCs # 0.0 /100WBC 01/26/23 11:05 Specimen Type Arterial 01/26/23 11:09 Sample Site Brachial, left 01/26/23 11:09 ABG pH 7.49 (7.35-7.45) H 01/26/23 11:09 ABG pCO2 35.8 mmHg (35-45) 01/26/23 11:09 ABG pO2 58.6 mmHg (80.0-100.0) L 01/26/23 11:09 ABG HCO3 27.5 mmol/L (22-26) H 01/26/23 11:09 ABG Base Excess 4.1 mmol/L (-2.0-2.0) H 01/26/23 11:09 Sachin Test Pos 01/26/23 11:09 Hematocrit 30.2 % (42-52) L 01/26/23 11:09 O2 Delivery Device Room air 01/26/23 11:09 Communications Intern ID Cak 01/26/23 11:09 Sodium 144 mmol/L (136-145) 01/26/23 11:05 Potassium 4.3 mmol/L (3.5-5.1) 01/26/23 11:05 Chloride 103 mmol/L (98-107) 01/26/23 11:05 Carbon Dioxide 28 mmol/L (22-29) 01/26/23 11:05 Anion Gap 17.3 (5-19) 01/26/23 11:05 BUN 9 mg/dL (8-23) 01/26/23 11:05 Creatinine 0.5 mg/dL (0.7-1.2) L 01/26/23 11:05 GFR Calculation Not Reportable 01/26/23 11:05 Glucose 169 mg/dL (65-115) H 01/26/23 11:05 Calculated Osmolality 301 mOsm/kg (285-295) H 01/26/23 11:05 Lactic Acid 4.8 mmol/L (0.5-2.2) H* 01/26/23 11:05 Calcium 7.1 mg/dL (8.5-10.5) L 01/26/23 11:05 Total Bilirubin 0.3 mg/dL (0.15-1.2) 01/26/23 11:05 AST 14 U/L (0-40) 01/26/23 11:05 ALT 8 U/L (0-41) 01/26/23 11:05 Alkaline Phosphatase 65 U/L (40-130) 01/26/23 11:05 NT-Pro-B Natriuret Pep 7391 pg/mL (0-450) H 01/26/23 11:05 Total Protein 7.0 g/dL (6.6-8.7) 01/26/23 11:05 Albumin 2.9 g/dL (3.5-5.2) L 01/26/23 11:05 Globulin 4.1 g/dL (1.3-4.6) 01/26/23 11:05 All radiology interpretation(s) finalized by discharge EKG Data EKG 1: I personally reviewed and interpreted this EKG as follows: EKG Interpretation Date: 01/26/23 EKG interpretation time: 10:58 Interpretation: sinus tach hr [address] or t wave abnormalities qrs 92 qtc 434 Discharge Plan Discharge Patient Disposition: Admitted As Inpatient Admit Provider: Jayne Baker Clinical Impression: Pneumonia Condition: Stable Coding Level of Care Code ED Power Plant Installer for Mia Joseph
[2023-01-26 11:19] LABS: Basophils % 0.2 %; Eosinophils % 0.4 %; Hematocrit 29.2 % (37-53); Lymphocytes # 2.8 10^3/uL (0.8-4.8); Lymphocytes % 25.5 %; Mean Corpuscular HGB Conc 29.8 g/dL (30-55); Mean Corpuscular Hemoglobin 30.1 pg (27-33); Monocytes # 0.8 10^3/uL (0.2-0.9); Monocytes % 7.4 %; Neutrophils # 7.25 10^3/uL (1.8-7.7); Neutrophils % 65.3 %; Nucleated Red Blood Cells % 0 %; Platelet Count 436 10^3/cmm (157-399); Red Blood Count 2.89 10^6/uL (3.85-5.65); Red Cell Distribution Width 16.1 % (12.1-15.1); White Blood Count 11.08 10^3/uL (3.29-11.43)
[2023-01-26 11:21] LABS: ABG PCO2 35.8 mmHg (35-45); ABG PH Result 7.49 (7.35-7.45); Arterial Blood Gas Hematocrit 30.2 % (42-52); Base Excess ABG 4.1 mmol/L (-2.0-2.0); Blood Gas Allen Test Pos; Blood Gas Operator Identificat CAK; Blood Gas Sample Site Brachial, left; Blood Gas Sample Type Arterial; HCO3 ABG 27.5 mmol/L (22-26); Oxygen Device ROOM AIR; PO2 ABG 58.6 mmHg (80.0-100.0)
[2023-01-26 11:51] LABS: Lactic Sepsis W/Reflex 4.8 mmol/L (0.5-2.2)
[2023-01-26] MEDS: sodium chloride 0.9% 1,000 ML 999 ML IV ×2 (11:52→12:26)
[2023-01-26 11:57] LABS: Alanine Aminotransferase 8 U/L (0-41); Albumin Level 2.9 g/dL (3.5-5.2); Alkaline Phosphatase 65 U/L (40-130); Anion Gap 17.3 (5-19); Aspartate Amino Transferase 14 U/L (0-40); Blood Urea Nitrogen 9 mg/dL (8-23); Calcium 7.1 mg/dL (8.5-10.5); Carbon Dioxide 28 mmol/L (22-29); Chloride 103 mmol/L (98-107); Globulin 4.1 g/dL (1.3-4.6); Glucose 169 mg/dL (65-115); NT Pro B Type Natriuretic Pept 7391 pg/mL (0-450); Osmolality Calculated 301 mOsm/kg (285-295); Potassium 4.3 mmol/L (3.5-5.1); Sodium 144 mmol/L (136-145); Total Bilirubin 0.3 mg/dL (0.15-1.2)
[2023-01-26] MEDS: piperacillin-tazobactam 3.375 GM in sodium chloride 0.9% (plus) 50 ML IV ×2 (12:11→18:28)
[2023-01-26] MEDS: vancomycin 1,000 MG in sodium chloride 0.9% 250 ML 250 MG IV (12:16)
--- NOTE | 2023-01-26 12:26 | PC.NURSE ---
NEW IV STARTED ON LEFT ARM SO ANBX CAN RUN SIMULTANEOUSLY
--- NOTE | 2023-01-26 12:39 | PC.PHAR ---
pt is from [facility]-tony smith nurse at [facility] states the pt had all am meds and no prns
[2023-01-26 13:04] LABS: Reflex Lactate Order REFLEX LACTIC ORDERD
[2023-01-26 13:18] LABS: Add Urine Microscopic? YES; Bilirubin Urine Neg (Negative); Blood Urine 3+ (Negative); Glucose Urine UA Norm (Normal); Ketones Urine 1+ (Negative); Leukocyte Esterase Urine Negative (Negative); Nitrate Urine Negative (Negative); Protein Urine Trace (Negative); Specific Gravity, Urine 1.015 (1.005-1.030); Urine Appearance SL Hazy (CLEAR); Urine Color Yellow (Yellow); Urobilinogen Urine Norm (Negative); pH Urine 5 (5-7)
[2023-01-26 13:24] LABS: Bacteria Urine TRACE /hpf; Hyaline Casts Urine 0-4 /lpf; Mucus Urine TRACE /hpf; RBC Urine 25-40 /hpf (0-2); Squamous Epithelial Cell Urine 0-4 /hpf (0-5); WBC Urine 0-4 /hpf (0-5)
[2023-01-26 13:25] LABS: Add Urine Culture? Yes
--- NOTE | 2023-01-26 13:25 | PM.HP ---
Providers/Chief Complaint Admitting Physician: Jayne Baker MD Primary Care Provider: Jack Purcell DO Chief Complaint: SOB, Covid History of Present Illness Shaun Beltran is a 82 year old male with past medical history of chronic schizophrenia, ruff of the [facility], DNR/DNI, recent COVID, diabetes mellitus, presented to the hospital today from fdc after having an episode of vomiting. There is a suspicion he may have aspirated. In the ER he was suctioned quite well and saturations are 99% on room air. WBC is within normal limits however lactic is 4.8. Patient was given IV fluids and started on antibiotics. Patient is chronically bedbound. He is altered at baseline and only able to state his name. He is not able to answer other questions. Per EMS and fdc he just came off of COVID precautions last 2 to 3 days. This morning after eating he had some dyspnea. He is afebrile here. Blood gas checked 7.49/35.8/58.6/27.5. Creatinine 0.5, BNP 7391. Baseline unknown. UA shows 25-40 RBCs, 0-4 WBCs, 3+ blood, 1+ ketones. Blood pressure on arrival 141/93, respiratory 30, pulse 105, temperature 98.5. Medications/Allergies Home Medications Medication Instructions Recorded Confirmed Last Taken Type bisacodyl 10 mg rectal suppository 10 mg [place] DAILY PRN Constipation 06/14/19 01/26/23 Unknown History lisinopril 2.5 mg tablet 2.5 mg PO DAILY@06/14/19 01/26/23 01/26/23 History magnesium hydroxide 400 mg/5 mL 30 ml PO DAILY PRN Constipation 06/14/19 01/26/23 Unknown History oral suspension (Milk of Magnesia) sennosides 8.6 mg-docusate sodium 1 tab PO BID@06/14/19 01/26/23 Unknown History 50 mg tablet (Senna Plus) sodium phosphates 19 gram-7 118 ml [place] DAILY PRN Constipation 06/14/19 01/26/23 Unknown History gram/118 mL enema (Enema Disposable) acetaminophen 650 mg 650 mg PO Q6H PRN Pain 01/26/23 01/26/23 Unknown History tablet,extended release albuterol sulfate 2.5 mg/3 mL 2.5 mg inhalation Q6H PRN 01/26/23 01/26/23 01/26/23 08:00 History (0.083 %) solution for nebulization Shortness Of Breath divalproex 250 mg tablet,delayed 250 mg PO BID@01/26/23 01/26/23 01/26/23 08:00 History release hydrocodone 5 mg-acetaminophen 325 1 tab PO Q6H PRN Pain 01/26/23 01/26/23 Unknown History mg tablet metformin 1,000 mg tablet 1,000 mg PO BID@01/26/23 01/26/23 01/26/23 08:00 History nystatin 100,000 unit/mL oral 5 ml PO QID 01/26/23 01/26/23 01/26/23 History suspension olanzapine 2.5 mg tablet 2.5 mg PO DAILY@08 01/26/23 01/26/23 01/26/23 History pantoprazole 40 mg tablet,delayed 40 mg PO DAILY@01/26/23 01/26/23 01/26/23 History release risperidone microspheres 50 mg/2 50 mg IM Q14D 01/26/23 01/26/23 Unknown History mL intramuscular susp,ext release (Risperdal Consta) terbinafine HCl 1 % topical cream 1 applic topical BID 01/26/23 01/26/23 Unknown History (Lamisil AT) triamcinolone acetonide 0.1 % See Rx Instructions .Route .COMPLEX 01/26/23 01/26/23 Unknown History topical cream Allergies Allergy/AdvReac Type Severity Reaction Status Date / Time chlorpromazine Allergy Unknown Verified 06/14/19 17:39 haloperidol [From Haldol] Allergy Unconscious Verified 06/14/19 17:39 PFSH Acute PFSH: Medical History (Updated 01/26/23 @ 14:56 by Jayne Baker MD) Alzheimer disease Diabetes mellitus, type II Hypertension Schizophrenia Social History Smoking and tobacco/nicotine status: never used tobacco/nicotine Vitals/I&O/Wt Last Vital Signs Temp 98.5 F 01/26/23 10:59 Pulse 107 H 01/26/23 13:04 Resp 31 H 01/26/23 13:04 BP 152/77 01/26/23 13:04 Pulse Ox 97 01/26/23 13:04 O2 Del Method Room Air 01/26/23 12:09 Weight last 48 hrs Weight 61.235 kg Physical Exam Narrative: General: Alert, no acute distress, patient nonverbal. Only able to state his name. HEENT: Normocephalic, atraumatic, EOMI, breathing comfortably on room air Cardio: Regular rate rhythm, normal S1-S2, Respiratory: Rhonchi bilaterally, mild crepitus at bases GI: Abdomen soft, nontender, nondistended, bowel sounds + Extremities: No edema bilateral lower extremities Urinary Catheter Management: Hernandez: Cath Placed During This Visit: yes Urinary Catheter Date of Insertion: 01/26/23 Urinary Catheter Time of Insertion: 12:56 Data 01/26/23 11:05 01/26/23 11:05 Micro: Microbiology 01/26/23 11:10 Blood Culture - Preliminary Blood SPECIMEN COLLECTED 01/26/23 11:05 Blood Culture - Preliminary Blood SPECIMEN COLLECTED A&P Assessment and plan (1) Pneumonia: Plan #Aspiration pneumonia #Schizophrenia #Diabetes mellitus #Hypertension #Rfuf of the state #DNR ? We are going to call fdc to obtain past medical history and other information about the patient. So far above information obtained from ER and RN. ? Check speech swallow evaluation ? N.p.o. till swallow evaluation done. Will asked fdc regarding patient's specific diet requirements. ? Continue on vancomycin and Zosyn at this time ? Chest x-ray does show right lower lobe consolidation. Suspicion of aspiration pneumonia ? Placed on normal saline 100 cc/h ? Nasal cannula as needed. Right now patient is on room air. ? Sliding scale insulin low-dose intensity ? Continue pantoprazole, olanzapine, lisinopril, Lemus prophylaxis ? DuoNeb every 6 hours as needed ? Continue Doc senna ? Enema as needed ? Check blood cultures ? Check sputum culture Gram stain ? BNP 7000 ? Check echo ? Recheck lactic acid as it was 4.4 on admission. Patient does not meet sepsis criteria at this time. We will monitor for now. Lactic acid elevation may be due to metformin as well. I will continue on broad-spectrum antibiotics till further lab studies are back and then may de-escalate. So far he has been afebrile. ? We will obtain more information from fdc. ? Patient is status post 2 L normal saline bolus. CODE STATUS: ER noted he was DNR/DNI however will confirm from fdc before placing an order for that. Attestations Medical Necessity Statement*: Greater than 2 midnight stay for management of aspiration pneumonia and High MDM includes number and complexity of problems actively addressed during encounter, amount and/or complexity of data reviewed/ordered [ previous or external records, ordered lab(s)/test(s), independent test interpretation and other healthcare professional discussion] and described risk of complication, morbidity or mortality of management as documented Diagnoses Pneumonia J18.9
[2023-01-26 15:09] LABS: Lactic Acid level (Lactate) 3.9 mmol/L (0.5-2.2)
--- NOTE | 2023-01-26 15:12 | PC.NURSE ---
spoke with Apryl at [facility] [place] and confirmed that pt is DNR and on regular diet at their facility. Apryl states pt is on bedrest and talkative at baseline. Jack Farias, public district administrator is guardian and son Giovanni Beltran is additional contact at [phone].
[2023-01-26] MEDS: sodium chloride 0.9% 1,000 ML 100 ML IV (15:57)
[2023-01-26] MEDS: nystatin 100,000 unit/mL UDC 5 mL 500000 UNIT PO ×2 (18:27→22:25)
[2023-01-26 20:50] LABS: Basophils % 0.1 %; Eosinophils % 0.1 %; Hematocrit 28.5 % (37-53); Lymphocytes # 1.9 10^3/uL (0.8-4.8); Lymphocytes % 12.6 %; Mean Corpuscular HGB Conc 30.2 g/dL (30-55); Mean Corpuscular Hemoglobin 30.5 pg (27-33); Mean Corpuscular Volume 101.1 fl (82-101); Mean Platelet Volume 9.6 fL (7.4-10.4); Monocytes % 6.3 %; Neutrophils # 12.05 10^3/uL (1.8-7.7); Nucleated Red Blood Cells % 0 %; Platelet Count 369 10^3/cmm (157-399); Red Blood Count 2.82 10^6/uL (3.85-5.65); Red Cell Distribution Width 16.1 % (12.1-15.1); White Blood Count 15.06 10^3/uL (3.29-11.43)
[2023-01-26 21:11] LABS: Blood Urea Nitrogen 7 mg/dL (8-23); Calcium 6.3 mg/dL (8.5-10.5); Carbon Dioxide 26 mmol/L (22-29); Glucose 141 mg/dL (65-115); Lactate (Lactic Acid level) 1.8 mmol/L (0.5-2.2)
[2023-01-26 21:24] LABS: Anion Gap 15.2 (5-19); Chloride 108 mmol/L (98-107); Osmolality Calculated 300 mOsm/kg (285-295); Potassium 4.2 mmol/L (3.5-5.1); Sodium 145 mmol/L (136-145)
[2023-01-26] MEDS: triamcinolone 0.1% cream 15 gm TOPICAL (21:27)
[2023-01-26] MEDS: sennosides-docusate Tablet 1 TAB PO (22:25)
[2023-01-26] MEDS: divalproex DR 250 mg Tablet PO (22:25)
--- NOTE | 2023-01-26 22:27 | PC.NURSE ---
Scanned evening medications to administer but observed that no diet is ordered and speech is ordered to do a swallow evaluation. in conferring with the charge nurse it was agreed to attempt medication administration d/t one of the medications being depakote that the patient takes. patient was sat at a 90 angle and administered medications one at a time with honey thickened water, patient tolerated well. maintained elevation for a brief time after to ensure no aspiration occurred. will continue to monitor at this time.
[2023-01-27] VITALS (11 sets, daily range): BP systolic 99–183; BP diastolic 58–92; PULSE 88–105; RESP 14–20; TEMP 36.6–36.9; O2SAT 91–99
[2023-01-27] MEDS: sodium chloride 0.9% 1,000 ML 100 ML IV (02:07)
[2023-01-27] MEDS: piperacillin-tazobactam 3.375 GM in sodium chloride 0.9% (plus) 50 ML IV ×3 (02:08→17:27)
[2023-01-27] MEDS: divalproex Sprinkles 125 mg Capsule 250 MG PO ×2 (10:42→21:28)
[2023-01-27] MEDS: triamcinolone 0.1% cream 15 gm TOPICAL ×2 (10:43→21:29)
--- NOTE | 2023-01-27 10:59 | PC.CHAP ---
Pastoral Care Encounter/Spiritual Assessment Type of Contact [x] Declined sales engineer engineered products visit [] Patient/Family/Request visit [] Outpatient visit [] Follow-up visit [] Physician referral [] Code/Alert [x] Routine visit [] Staff referral [] Actively dying [] Patient sleeping [] Family support [] [] Out of room [] Palliative care [] [] Receiving care in room [] Pre-surgical visit [] Trauma [] Long length of stay [] ICU visit [] Other: Relational/Emotional Strength [] Patient feels connected with others/family/visitors/staff [] Distress [] Loneliness/isolation [] Abandonment Spirituality of Patient [] Person of Harmony [] Attends Orthodox of their Harmony [] Believes in Prayer [] Reads Bible or Methodist materials [] There are Spiritual issues to be addressed Glass Or Mirror Inspector Interventions [] Prayer [] Active listening [] Non-anxious presence [] Spiritual/emotional support [] Crisis/trauma care [] Spiritual counseling [] Bereavement support [] Provided bereavement packet [] Provided Bible/devotional materials [] Provided toy/stuffed animal, coloring book to patient or family member [] Provided Communion [] Anointing/[place]field [] Salvation [] Completed spiritual assessment [] Other: Impact on Illness or Injury [] Angry [] Fearful [] Anxious [] Often cries [] Exhaustion [] Unable to work [] Unable to attend evangelical [] Unable to walk/stand [] Unable to read [] Unable to drive [] Unable to eat/drink [] Unable to sleep [] Unable to be with family [] Patient intubated [] Other: Summary Declined sales engineer engineered products visit Time spent with patient 5 mins
[2023-01-27] MEDS: ipratropium-albuterol 3 mL Neb INHALATION ×2 (11:12→13:47)
[2023-01-27 11:17] LABS: Iron 17 ug/dL (59-158); Percent Saturation 13.7 % (20-50); Total Iron Binding Capacity 124 mcg/dl; Unsaturated Iron Binding 107 ug/dL (112-347)
[2023-01-27] MEDS: sodium chloride 0.9% 1,000 ML 75 ML IV (11:24)
[2023-01-27 11:27] LABS: Thyroid Stimulating Hormone 2.58 uIU/mL (0.27-4.20)
[2023-01-27 11:34] LABS: Procalcitonin 0.07 ng/mL (0-0.5); Vitamin B12 393 pg/mL (232-1245)
[2023-01-27] MEDS: vancomycin 1,000 MG in sodium chloride 0.9% 250 ML 250 MG IV (12:16)
--- NOTE | 2023-01-27 12:19 | P.PN_ITS ---
Subjective Subjective: Hospital course, labs appreciated. On examination patient laying comfortably in bed, awake but not alert, not following commands currently on 2 L of oxygen supplementation saturating over 90%. Has remained hemodynamically stable and afebrile. Blood work appreciated Vitals/I&O/Wt Last Vital Signs Temp 98.4 F 01/27/23 11:49 Pulse 95 01/27/23 11:49 Resp 16 01/27/23 11:49 BP 118/67 01/27/23 11:49 Pulse Ox 94 01/27/23 11:49 O2 Del Method Nasal Cannula 01/27/23 11:49 O2 Flow Rate 2 01/27/23 11:49 01/26/23 01/27/23 01/27/23 22:59 06:59 14:59 Intake Total 2350 / 2350 717 / 3067 1000 / 1000 Output Total 150 / 150 200 / 350 Balance 2200 / 2200 517 / 2717 1000 / 1000 Weight last 48 hrs Weight 61.235 kg Physical Exam Narrative: General: Alert, no acute distress, patient nonverbal. Only able to state his name. HEENT: Normocephalic, atraumatic, EOMI, breathing comfortably on room air Cardio: Regular rate rhythm, normal S1-S2, Respiratory: Rhonchi bilaterally, mild crepitus at bases GI: Abdomen soft, nontender, nondistended, bowel sounds + Extremities: No edema bilateral lower extremities Urinary Catheter Management: Hernandez: Cath Placed During This Visit: yes Reason for Continuing Indwelling Catheter: Other Urinary Catheter Date of Insertion: 01/26/23 Urinary Catheter Time of Insertion: 12:56 Data 01/26/23 20:41 01/26/23 20:41 Micro: Microbiology 01/26/23 11:10 Blood Culture - Preliminary Blood NEGATIVE TO DATE 01/26/23 11:05 Blood Culture - Preliminary Blood NEGATIVE TO DATE 01/26/23 12:57 Urine Culture - Preliminary Urine,Clean Catch A&P Assessment and plan (1) Pneumonia: Plan #Aspiration pneumonia #Schizophrenia #Diabetes mellitus #Hypertension #Ruff of the state #DNR ? We are going to call penitentiary to obtain past medical history and other information about the patient. So far above information obtained from ER and RN. ? Check speech swallow evaluation ? N.p.o. till swallow evaluation done. Will asked penitentiary regarding patient's specific diet requirements. ? Continue on vancomycin and Zosyn at this time ? Chest x-ray does show right lower lobe consolidation. Suspicion of aspiration pneumonia ? Placed on normal saline 100 cc/h ? Nasal cannula as needed. Right now patient is on room air. ? Sliding scale insulin low-dose intensity ? Continue pantoprazole, olanzapine, lisinopril, Lemus prophylaxis ? DuoNeb every 6 hours as needed ? Continue Doc senna ? Enema as needed ? Check blood cultures ? Check sputum culture Gram stain ? BNP 7000 ? Check echo ? Recheck lactic acid as it was 4.4 on admission. Patient does not meet sepsis criteria at this time. We will monitor for now. Lactic acid elevation may be due to metformin as well. I will continue on broad-spectrum antibiotics till further lab studies are back and then may de-escalate. So far he has been afebrile. ? We will obtain more information from penitentiary. ? Patient is status post 2 L normal saline bolus. Plan for the day: High concerns for aspiration pneumonia. Follow speech evaluation. Keep n.p.o. for now. Oxygen supplementation keeping saturation over 90%. Continue with broad-spectrum antibiotics with vancomycin and Zosyn. Sputum culture not collected yet. Follow-up with blood culture and urine culture. Check respiratory viral panel. Switch oral to IV medications. Switch oral to IV Protonix. We will switch Depakote to Depakote sprinkles. Continue with IV fluids at 75 cc/h. No blood work available today. Had hypernatremia yesterday. We will switch from normal saline to D5 NS. Patient does have history of type 2 diabetes mellitus. Will start on insulin sliding scale low-dose protocol. Check CBC and CMP today. Goal blood pressure less than 140/90 mmHg. Blood pressures low normal today. Hold off on home dose of lisinopril. Holding off on home dose of olanzapine for now. CODE STATUS: ER noted he was DNR/DNI however will confirm from penitentiary before placing an order for that. Attestations Medical Necessity Statement*: Requires further hospitalization for management and treatment of hypoxia in setting of aspiration pneumonia Diagnoses Pneumonia J18.9
[2023-01-27 12:51] LABS: Adenovirus Not Detected (NOT DETECT); Chlamydia Pneumoniae Not Detected (NOT DETECT); Coronavirus 229E,HKU1,NL63,OC4 Not Detected (NOT DETECT); Human Metapneumovirus Not Detected (NOT DETECT); Human Rhinovirus/Enterovirus Not Detected (NOT DETECT); Influenza A Not Detected (NOT DETECT); Influenza A H1 Not Detected (NOT DETECT); Influenza A H1-2009 Not Detected (NOT DETECT); Influenza A H3 Not Detected (NOT DETECT); Influenza B Not Detected (NOT DETECT); Mycoplasma Pneumoniae Not Detected (NOT DETECT); Parainfluenza Virus Type 1 Not Detected (NOT DETECT); Parainfluenza Virus Type 2 Not Detected (NOT DETECT); Parainfluenza Virus Type 3 Not Detected (NOT DETECT); Parainfluenza Virus Type 4 Not Detected (NOT DETECT); Respiratory Syncytial Virus A Not Detected (NOT DETECT); Respiratory Syncytial Virus B Not Detected (NOT DETECT); SARS-COV-2 Not Detected (NOT DETECT)
[2023-01-27] MEDS: dextrose 5%-sod chloride 0.9% 1,000 ML 75 ML IV (14:20)
[2023-01-27 14:27] LABS: Alanine Aminotransferase 8 U/L (0-41); Albumin Level 2.4 g/dL (3.5-5.2); Alkaline Phosphatase 59 U/L (40-130); Anion Gap 15.2 (5-19); Aspartate Amino Transferase 14 U/L (0-40); Blood Urea Nitrogen 4 mg/dL (8-23); Carbon Dioxide 24 mmol/L (22-29); Chloride 107 mmol/L (98-107); Globulin 3.5 g/dL (1.3-4.6); Glucose 153 mg/dL (65-115); Osmolality Calculated 296 mOsm/kg (285-295); Potassium 3.2 mmol/L (3.5-5.1); Sodium 143 mmol/L (136-145); Total Bilirubin 0.3 mg/dL (0.15-1.2); Total Protein 5.9 g/dL (6.6-8.7)
[2023-01-27 14:40] LABS: Basophils % 0.1 %; Eosinophils % 0.2 %; Hematocrit 26.5 % (37-53); Lymphocytes # 1.9 10^3/uL (0.8-4.8); Lymphocytes % 12.6 %; Mean Corpuscular HGB Conc 30.2 g/dL (30-55); Mean Corpuscular Hemoglobin 30.8 pg (27-33); Mean Corpuscular Volume 101.9 fl (82-101); Mean Platelet Volume 10.3 fL (7.4-10.4); Monocytes # 1.1 10^3/uL (0.2-0.9); Monocytes % 7.1 %; Neutrophils # 12.11 10^3/uL (1.8-7.7); Neutrophils % 79.3 %; Nucleated Red Blood Cells % 0 %; Platelet Count 344 10^3/cmm (157-399); Red Cell Distribution Width 16.1 % (12.1-15.1); White Blood Count 15.27 10^3/uL (3.29-11.43)
[2023-01-27 14:42] LABS: Calcium 5.9 mg/dL (8.5-10.5)
--- NOTE | 2023-01-27 14:47 | PC.NURSE ---
Risperidone Injection: Per nursing staff at [facility], last injection administered 01/22/2023.
[2023-01-27] MEDS: calcium gluconate 0.9% NaCL 1 GM/50 ML PREMIX IV (15:37)
[2023-01-27 17:16] LABS: Glucose Point of Care 155 mg/dL (70-110)
[2023-01-27] MEDS: insulin lispro 100 unit/1 mL SUBCUT (17:27)
[2023-01-27] MEDS: sennosides-docusate Tablet 1 TAB PO (21:28)
[2023-01-27 21:44] LABS: Glucose Point of Care 107 mg/dL (70-110)
[2023-01-28] VITALS (7 sets, daily range): BP systolic 122–160; BP diastolic 69–87; PULSE 78–104; RESP 15–17; TEMP 36.4–36.6; O2SAT 91–99
[2023-01-28] MEDS: piperacillin-tazobactam 3.375 GM in sodium chloride 0.9% (plus) 50 ML IV ×3 (01:34→17:40)
[2023-01-28] MEDS: dextrose 5%-sod chloride 0.9% 1,000 ML 75 ML IV (01:34)
[2023-01-28 06:36] LABS: Glucose Point of Care 168 mg/dL (70-110)
[2023-01-28] MEDS: pantoprazole 40 mg SDV IVP (08:37)
[2023-01-28] MEDS: insulin lispro 100 unit/1 mL SUBCUT ×3 (08:37→17:39)
[2023-01-28] MEDS: sennosides-docusate Tablet 1 TAB PO ×2 (08:43→21:07)
[2023-01-28] MEDS: divalproex Sprinkles 125 mg Capsule 250 MG PO ×2 (08:43→21:07)
[2023-01-28] MEDS: triamcinolone 0.1% cream 15 gm TOPICAL ×2 (08:46→21:07)
[2023-01-28 11:48] LABS: Glucose Point of Care 225 mg/dL (70-110)
[2023-01-28] MEDS: vancomycin 1,000 MG in sodium chloride 0.9% 250 ML 250 MG IV (12:12)
[2023-01-28] MEDS: potassium chloride ER 20 mEq Tablet 40 MEQ PO (12:29)
--- NOTE | 2023-01-28 13:07 | USCV_ITS ---
Shaun Beltran Age: 82 Gender: M : 1940 Exam Date: 01/28/2023 13:44 Ordering Phys: Jayne Baker MD Technologist: Chavez Dover Exam Location[place] [facility] [place] Indication: r/o hf BP: 128 / 87 HR: Rhythm: Sinus Technical Quality: Technically difficult study MEASUREMENTS (Male / Female) Normal Values 2D ECHO LVOT Diameter 2.1 cm LA Diameter 3.9 cm Aorta at Sinotubular Diameter 2.0 cm IVC Diameter 1.9 cm M-MODE Aortic Annulus Diameter 2.6 cm LA Ao Ratio MM 1.4 MV E Point Septal Separation 0.9 cm DOPPLER Right Atrial Pressure 3.0 mmHg FINDINGS Left Ventricle Study was technically very difficult. Poor apical and parasternal views. Limited view from parasternal windows revealed probably preserved LV function however endocardium not well visualized. No Doppler was performed due to poor visualization of the valves. Right Ventricle Right Atrium Left Atrium Mitral Valve Aortic Valve Tricuspid Valve Pulmonic Valve Pericardium Aorta IVC CONCLUSIONS Venecia Porras MD (Electronically Signed) Final Date: 28 January 2023 14:45 S
--- NOTE | 2023-01-28 13:09 | PM.PN ---
Subjective Subjective: Seen this morning. BNP 7900. Patient is on room air. WBC count 15,000. Vitals/I&O/Wt Last Vital Signs Temp 97.9 F 01/28/23 07:59 Pulse 103 H 01/28/23 11:00 Resp 16 01/28/23 11:00 BP 128/87 01/28/23 11:00 Pulse Ox 96 01/28/23 11:00 O2 Del Method Room Air 01/28/23 11:00 O2 Flow Rate 2 01/27/23 16:00 01/27/23 01/28/23 01/28/23 22:59 06:59 14:59 Intake Total 100 / 2400 892.5 / 3292.5 240 / 240 Output Total 400 / 400 150 / 550 Balance -300 / 2000 742.5 / 2742.5 240 / 240 Physical Exam Narrative: General: Alert, no acute distress, patient nonverbal. Only able to state his name. HEENT: Normocephalic, atraumatic, EOMI, breathing comfortably on room air Cardio: Regular rate rhythm, normal S1-S2, Respiratory: Rhonchi bilaterally, mild crepitus at bases GI: Abdomen soft, nontender, nondistended, bowel sounds + Extremities: No edema bilateral lower extremities Urinary Catheter Management: Hernandez: Cath Placed During This Visit: yes Reason for Continuing Indwelling Catheter: Other Urinary Catheter Date of Insertion: 01/26/23 Urinary Catheter Time of Insertion: 12:56 Data 01/27/23 13:45 01/27/23 13:45 Micro: Microbiology 01/26/23 12:57 Urine Culture - Final Urine,Clean Catch 01/26/23 11:10 Blood Culture - Preliminary Blood NEGATIVE TO DATE 01/26/23 11:05 Blood Culture - Preliminary Blood NEGATIVE TO DATE A&P Assessment and plan (1) Pneumonia: Plan #Aspiration pneumonia #Schizophrenia #Diabetes mellitus #Hypertension #Ruff of the state #DNR #Elevated BNP ? We are going to call [facility]iary to obtain past medical history and other information about the patient. So far above information obtained from ER and RN. ? Check speech swallow evaluation ? N.p.o. till swallow evaluation done. Will asked penitentiary regarding patient's specific diet requirements. ? Continue on vancomycin and Zosyn at this time ? Chest x-ray does show right lower lobe consolidation. Suspicion of aspiration pneumonia ? Placed on normal saline 100 cc/h ? Nasal cannula as needed. Right now patient is on room air. ? Sliding scale insulin low-dose intensity ? Continue pantoprazole, olanzapine, lisinopril, Lemus prophylaxis ? DuoNeb every 6 hours as needed ? Continue Doc senna ? Enema as needed ? Check blood cultures ? Check sputum culture Gram stain ? BNP 7000 ? Check echo ? Recheck lactic acid as it was 4.4 on admission. Patient does not meet sepsis criteria at this time. We will monitor for now. Lactic acid elevation may be due to metformin as well. I will continue on broad-spectrum antibiotics till further lab studies are back and then may de-escalate. So far he has been afebrile. ? We will obtain more information from penitentiary. ? Patient is status post 2 L normal saline bolus. Plan for the day: High concerns for aspiration pneumonia. Follow speech evaluation. Patient qualified for dysphagia level 5 diet minced and moist. Continue that. Oxygen supplementation keeping saturation over 90%. Currently patient is on room air. Continue with broad-spectrum antibiotics with vancomycin and Zosyn. Sputum culture not collected yet. Blood cultures urine culture negative. Respiratory viral panel negative. Switch IV medications to oral Stop IV fluids. Patient does have history of type 2 diabetes mellitus. Will start on insulin sliding scale low-dose protocol. Goal blood pressure less than 140/90 mmHg. Blood pressures low normal today. Hold off on home dose of lisinopril. Give small dose of Lasix 20 IV x1. CODE STATUS: DNR/DNI Attestations Medical Necessity Statement*: Awaiting cardiac echo. We will diurese patient today. Diagnoses Pneumonia J18.9
[2023-01-28] MEDS: FUROsemide 10 mg/mL SDV 2mL 20 MG IVP (14:11)
--- NOTE | 2023-01-28 14:17 | PC.SOCIAL ---
IMM Update Tried updating pt's guardian & family on IMM. No one answered the phone. Copy left a pt's bedside for family to review. Initialed, dated, & timed a copy & placed in chart.
[2023-01-28 17:01] LABS: Estmated Average Glucose 126
[2023-01-28 17:04] LABS: Chol HDL Ratio 4.79 mg/dL (1.0-5.00); Cholesterol 187 mg/dL (0-200); HDL Cholesterol 39 mg/dL (60-100); LDL Cholesterol Calculated 128 mg/dL (50-129); Triglycerides 98 mg/dL (0-150); VLDL Cholestrol Calculation 20 mg/dL (0-30)
[2023-01-28 17:05] LABS: Glucose Point of Care 81 mg/dL (70-110)
[2023-01-28 17:21] LABS: Folate Level 4.5 ng/mL (4.5-32.2)
[2023-01-28] MEDS: dextrose 50% syringe 50 mL 25 ML IVP (21:17)
[2023-01-28 21:24] LABS: Glucose Point of Care 56 mg/dL (70-110)
[2023-01-28 21:58] LABS: Glucose Point of Care 101 mg/dL (70-110)
[2023-01-29] VITALS (9 sets, daily range): BP systolic 129–166; BP diastolic 60–86; PULSE 91–108; RESP 16–20; TEMP 36.1–37.1; O2SAT 95–100
--- NOTE | 2023-01-29 00:45 | PC.NURSE ---
2109 patients blood sugar was 56. Patient was offered juice but declined. Patient ate a little bit of applesauce and half an amp of d50 was given. Dr Apodaca notified and said to check in 20 minutes and we would determine wether or not to give fluids. Recheck was at 101.
[2023-01-29 00:52] LABS: Glucose Point of Care 79 mg/dL (70-110)
[2023-01-29] MEDS: piperacillin-tazobactam 3.375 GM in sodium chloride 0.9% (plus) 50 ML IV ×2 (01:28→10:09)
[2023-01-29] MEDS: dextrose 50% syringe 50 mL 25 ML IVP (01:28)
[2023-01-29 01:59] LABS: Glucose Point of Care 140 mg/dL (70-110)
--- NOTE | 2023-01-29 02:53 | PC.NURSE ---
0030 patient's blood sugar was 79, this nurse called Dr. Apodaca to ask if he wanted to give anything to make sure patient didn't drop, Dr. Apodaca ordered another 1/2 amp of d50 and recheck in 20 minutes, Recheck was 140.
[2023-01-29 06:40] LABS: Glucose Point of Care 144 mg/dL (70-110)
[2023-01-29] MEDS: ipratropium-albuterol 3 mL Neb INHALATION (08:44)
[2023-01-29] MEDS: triamcinolone 0.1% cream 15 gm TOPICAL ×2 (10:08→21:15)
[2023-01-29] MEDS: sennosides-docusate Tablet 1 TAB PO ×2 (10:08→21:15)
[2023-01-29] MEDS: divalproex Sprinkles 125 mg Capsule 250 MG PO ×2 (10:08→21:14)
--- NOTE | 2023-01-29 10:36 | XRR_ITS ---
PROCEDURE INFORMATION: Exam: XR Chest Exam date and time: 01/29/2023 1:57 PM Age: 82 years old Clinical indication: Other: SOB; Patient HX: Assess for pulmonary edema TECHNIQUE: Imaging protocol: Radiologic exam of the chest. Views: 1 view. COMPARISON: CR XR chest 1V portable [id number] 01/26/2023 11:17 AM FINDINGS: Lungs: Bibasilar infiltrates, increased on the left and not definitely changed on the right. Pulmonary venous hypertension. Pleural spaces: Small bilateral pleural effusions. Heart/Mediastinum: Unremarkable. No cardiomegaly. Bones/joints: Unremarkable. XR/XR chest 1V portable [id number] IMPRESSION: Bibasilar infiltrates slightly increased on the left and unchanged on the right. Small pleural effusions. Pulmonary venous hypertension.
[2023-01-29 11:06] LABS: Glucose Point of Care 171 mg/dL (70-110)
[2023-01-29 11:06] LABS: Glucose Point of Care 193 mg/dL (70-110)
[2023-01-29 11:06] LABS: Glucose Point of Care 231 mg/dL (70-110)
--- NOTE | 2023-01-29 15:36 | PC.NURSE ---
Faxed [facility] discharge for patient.
--- NOTE | 2023-01-29 15:39 | PC.NURSE ---
Set up ride through medicaid and stretcher transportation spoke with Samuel. Confirmation number [id number]. [facility].
--- NOTE | 2023-01-29 16:00 | P.DS_ITS ---
Discharge Providers Date of Admission: 01/26/23 13:01 Date of Discharge: January 28, 2023 Attending Provider at Admission: Jayne Baker MD Attending Provider at Discharge: Jayne Baker MD Primary Care Provider: Jack Purcell DO Diagnoses at Discharge Discharge Diagnosis (1) Pneumonia: Status: Acute Reason for Visit Reason for Visit: [facility] [employer] Hospital Course Hospital Course Patient admitted for concerns of aspiration pneumonia. He was kept n.p.o. speec h evaluation was ordered. He qualified for dysphagia level 5 diet minced and moist. Patient has had no other aspiration events while in the hospital. He ate applesauce successfully this morning with the nurse. He is doing well. He is back to room air at this time saturating 96%. Patient treated with broad- spectrum antibiotics vancomycin and Zosyn during hospital stay. Sputum culture not collected. Blood culture urine culture negative to date. Respiratory viral panel negative. He did have mild hyponatremia for which she was placed on D5 NS. Blood pressure low normal during hospital stay therefore lisinopril was held. WBC count is 15,000 which can be reactive at this point. We will complete antibiotic course and discharge patient home on 7 days of Augmentin. He is to have follow-up labs done within a week. He has been afebrile during hospital stay. If patient spikes a fever he is to be sent back to the hospital for further evaluation. At this time vitals are stable and he is in good spirits. He will be sent back to detention. Of note patient's BNP was 7900 at admission. He was euvolemic with no clinical signs of heart failure. Echo was ordered. Technically it was a difficult study however most likely has preserved EF. Patient is euvolemic clinically. WBC count elevated most likely stress response. He also saw speech swallow evaluation and qualified for dysphagia level 5 diet moist ambulance to. Patient has been refusing to take IV medications. He prefers to take orals. We will place him on oral Augmentin sent him back to detention today. Patient did have another x-ray done today which reports as increasing infiltrate on the left base however I reviewed both x-ray images and do not see much of a difference compared to admission. He is to follow-up with his primary care doctor after discharge. At this time vitals are stable and he is in good spirits. He will be sent back to detention. Physical Exam Narrative: General: Alert, no acute distress, patient mainly nonverbal. Only able to state his name and answer yes or no questions. HEENT: Normocephalic, atraumatic, EOMI, breathing comfortably on room air Cardio: Regular rate rhythm, normal S1-S2, Respiratory: Rhonchi bilaterally, mild crepitus at bases GI: Abdomen soft, nontender, nondistended, bowel sounds + Extremities: No edema bilateral lower extremities Urinary Catheter Management: Hernandez: Cath Placed During This Visit: yes Reason for Continuing Indwelling Catheter: Other Urinary Catheter Date of Insertion: 01/26/23 Urinary Catheter Time of Insertion: 12:56 Discharge Data Studies Completed and Pending Completed Studies During Hospitalization Category Date Time Status XR chest 1V portable [id number] Stat Exams 01/26/23 10:52 Completed Pending at discharge Category Date Time Status Blood Culture Stat Lab 01/26/23 11:10 Results Complete Blood Count w/Auto AM LABS Lab 01/28/23 04:00 Ordered Comprehensive Metabolic Panel AM LABS Lab 01/28/23 04:00 Ordered Folate Level AM LABS Lab 01/28/23 04:00 Ordered Hemoglobin A1C AM LABS Lab 01/28/23 04:00 Ordered Lipid Profile w/VLDL Routine Lab 01/28/23 04:00 Ordered MAG [Magnesium] AM LABS Lab 01/28/23 04:00 Ordered MAG [Magnesium] AM LABS Lab 01/29/23 04:00 Ordered MAG [Magnesium] AM LABS Lab 01/30/23 04:00 Ordered PHOS [Phosphorus] AM LABS Lab 01/28/23 04:00 Ordered PHOS [Phosphorus] AM LABS Lab 01/29/23 04:00 Ordered PHOS [Phosphorus] AM LABS Lab 01/30/23 04:00 Ordered Sputum Culture and Gram Stain Stat Lab 01/26/23 14:59 Uncollected Laboratory Results WBC 15.27 10^3/uL (3.29-11.43) H 01/27/23 13:45 RBC 2.60 10^6/uL (3.85-5.65) L 01/27/23 13:45 Hgb 8.00 g/dL (11.27-16.99) L 01/27/23 13:45 Hct 26.5 % (37-53) L 01/27/23 13:45 MCV 101.9 fl (82-101) H 01/27/23 13:45 MCH 30.8 pg (27-33) 01/27/23 13:45 MCHC 30.2 g/dL (30-55) 01/27/23 13:45 RDW 16.1 % (12.1-15.1) H 01/27/23 13:45 Plt Count 344 10^3/cmm (157-399) 01/27/23 13:45 MPV 10.3 fL (7.4-10.4) 01/27/23 13:45 Neut % (Auto) 79.3 % 01/27/23 13:45 Lymph % (Auto) 12.6 % 01/27/23 13:45 [place] % (Auto) 7.1 % 01/27/23 13:45 Eos % (Auto) 0.2 % 01/27/23 13:45 Baso % (Auto) 0.1 % 01/27/23 13:45 Neut # (Auto) 12.11 10^3/uL (1.8-7.7) H 01/27/23 13:45 Lymph # (Auto) 1.9 10^3/uL (0.8-4.8) 01/27/23 13:45 [place] # (Auto) 1.1 10^3/uL (0.2-0.9) H 01/27/23 13:45 Eos # (Auto) 0.0 10^3/uL (0.0-0.8) 01/27/23 13:45 Baso # (Auto) 0.0 10^3/uL (0.0-0.1) 01/27/23 13:45 Nucleated RBC % (auto) 0 % 01/27/23 13:45 Nucleated RBCs # 0.0 /100WBC 01/27/23 13:45 Specimen Type Arterial 01/26/23 11:09 Sample Site Brachial, left 01/26/23 11:09 ABG pH 7.49 (7.35-7.45) H 01/26/23 11:09 ABG pCO2 35.8 mmHg (35-45) 01/26/23 11:09 ABG pO2 58.6 mmHg (80.0-100.0) L 01/26/23 11:09 ABG HCO3 27.5 mmol/L (22-26) H 01/26/23 11:09 ABG Base Excess 4.1 mmol/L (-2.0-2.0) H 01/26/23 11:09 Sachin Test Pos 01/26/23 11:09 Hematocrit 30.2 % (42-52) L 01/26/23 11:09 O2 Delivery Device Room air 01/26/23 11:09 Counselling Psychologist ID Cak 01/26/23 11:09 Sodium 143 mmol/L (136-145) 01/27/23 13:45 Potassium 3.2 mmol/L (3.5-5.1) L 01/27/23 13:45 Chloride 107 mmol/L (98-107) 01/27/23 13:45 Carbon Dioxide 24 mmol/L (22-29) 01/27/23 13:45 Anion Gap 15.2 (5-19) 01/27/23 13:45 BUN 4 mg/dL (8-23) L 01/27/23 13:45 Creatinine 0.4 mg/dL (0.7-1.2) L 01/27/23 13:45 GFR Calculation Not Reportable 01/27/23 13:45 Glucose 153 mg/dL (65-115) H 01/27/23 13:45 POC Glucose 225 mg/dL (70-110) H 01/28/23 11:27 Calculated Osmolality 296 mOsm/kg (285-295) H 01/27/23 13:45 Lactic Acid 4.8 mmol/L (0.5-2.2) H* 01/26/23 11:05 Lactic Acid (Sepsis) 3.9 mmol/L (0.5-2.2) H 01/26/23 14:30 Lactate 1.8 mmol/L (0.5-2.2) 01/26/23 20:41 Calcium 5.9 mg/dL (8.5-10.5) L 01/27/23 13:45 Iron 17 ug/dL (59-158) L 01/26/23 20:41 TIBC 124 mcg/dl 01/26/23 20:41 % Saturation 13.7 % (20-50) L 01/26/23 20:41 Unsat Iron Binding 107 ug/dL (112-347) L 01/26/23 20:41 Total Bilirubin 0.3 mg/dL (0.15-1.2) 01/27/23 13:45 AST 14 U/L (0-40) 01/27/23 13:45 ALT 8 U/L (0-41) 01/27/23 13:45 Alkaline Phosphatase 59 U/L (40-130) 01/27/23 13:45 NT-Pro-B Natriuret Pep 7391 pg/mL (0-450) H 01/26/23 11:05 Total Protein 5.9 g/dL (6.6-8.7) L 01/27/23 13:45 Albumin 2.4 g/dL (3.5-5.2) L 01/27/23 13:45 Globulin 3.5 g/dL (1.3-4.6) 01/27/23 13:45 Vitamin B12 393 pg/mL (232-1245) 01/26/23 20:41 Procalcitonin 0.07 ng/mL (0-0.5) 01/26/23 20:41 TSH 2.58 uIU/mL (0.27-4.20) 01/26/23 20:41 Urine Color Yellow (Yellow) 01/26/23 12:57 Urine Appearance Sl hazy (CLEAR) A 01/26/23 12:57 Urine pH 5 (5-7) 01/26/23 12:57 Ur Specific [place] 1.015 (1.005-1.030) 01/26/23 12:57 Urine Protein Trace (Negative) 01/26/23 12:57 Urine Glucose (UA) Norm (Normal) 01/26/23 12:57 Urine Ketones 1+ (Negative) H 01/26/23 12:57 Urine Blood 3+ (Negative) H 01/26/23 12:57 Urine Nitrate Negative (Negative) 01/26/23 12:57 Urine Bilirubin Neg (Negative) 01/26/23 12:57 Urine Urobilinogen Norm mg/dL (Negative) 01/26/23 12:57 Ur Leukocyte Esterase Negative (Negative) 01/26/23 12:57 Urine RBC 25-40 /hpf (0-2) H 01/26/23 12:57 Urine WBC 0-4 /hpf (0-5) H 01/26/23 12:57 Ur Squamous Epith Cells 0-4 /hpf (0-5) H 01/26/23 12:57 Ur Transition Epith Cell 5-10 /hpf 01/26/23 12:57 Amorphous Sediment Not Reportable 01/26/23 12:57 Urine Bacteria Trace /hpf (NONE) 01/26/23 12:57 Hyaline Casts 0-4 /lpf H 01/26/23 12:57 Urine Mucus Trace /hpf 01/26/23 12:57 Nasal Influ A H1 2009 PCR Not detected (NOT DETECT) 01/27/23 10:57 Adenovirus (PCR) Not detected (NOT DETECT) 01/27/23 10:57 C. pneumoniae DNA (PCR) Not detected (NOT DETECT) 01/27/23 10:57 Coronavirus 229E (PCR) Not detected (NOT DETECT) 01/27/23 10:57 Human Metapneumovir PCR Not detected (NOT DETECT) 01/27/23 10:57 Influenza A (H1) PCR Not detected (NOT DETECT) 01/27/23 10:57 Influenza A (H3) PCR Not detected (NOT DETECT) 01/27/23 10:57 Influenza Type A (PCR) Not detected (NOT DETECT) 01/27/23 10:57 Influenza Type B (PCR) Not detected (NOT DETECT) 01/27/23 10:57 M. pneumoniae (PCR) Not detected (NOT DETECT) 01/27/23 10:57 Parainfluenza 1 (PCR) Not detected (NOT DETECT) 01/27/23 10:57 Parainfluenza 2 (PCR) Not detected (NOT DETECT) 01/27/23 10:57 Parainfluenza 3 (PCR) Not detected (NOT DETECT) 01/27/23 10:57 Parainfluenza 4 (PCR) Not detected (NOT DETECT) 01/27/23 10:57 RSV Type A (PCR) Not detected (NOT DETECT) 01/27/23 10:57 RSV Type B (PCR) Not detected (NOT DETECT) 01/27/23 10:57 Entero/Rhino (PCR) Not detected (NOT DETECT) 01/27/23 10:57 SARS-CoV-2 (PCR) Not detected (NOT DETECT) 01/27/23 10:57 Vitals Last Vital Signs Temp 97.9 F 01/28/23 07:59 Pulse 103 H 01/28/23 11:00 Resp 16 01/28/23 11:00 BP 128/87 01/28/23 11:00 Pulse Ox 96 01/28/23 11:00 O2 Del Method Room Air 01/28/23 11:00 O2 Flow Rate 2 01/27/23 16:00 Discharge Plan Discharge Patient Disposition: Xfer SNF Condition: Stable Prescriptions: New amoxicillin-pot clavulanate 875-125 mg tablet 1 tab PO BID 5 Days Qty: 10 0RF Continued sennosides-docusate sodium [Senna Plus] 8.6-50 mg Tablet 1 tab PO BID@08,20 magnesium hydroxide [Milk of Magnesia] 400 mg/5 mL Suspension 30 ml PO DAILY PRN (Reason: Constipation) bisacodyl 10 mg Suppository 10 mg GA DAILY PRN (Reason: Constipation) Enema Disposable 19-7 gram/118 mL Enema 118 ml GA DAILY PRN (Reason: Constipation) lisinopril 2.5 mg Tablet 2.5 mg PO DAILY@08 Lamisil AT 1 % Cream 1 applic TOPICAL BID Rx Instructions: apply to back until completely clear nystatin 100,000 unit/mL suspension 5 ml PO QID Rx Instructions: swish ans swallow albuterol sulfate 2.5 mg /3 mL (0.083 %) solution for nebulization 2.5 mg inhalation Q6H PRN (Reason: Shortness Of Breath) divalproex 250 mg tablet,delayed release (DR/EC) 250 mg PO BID@08,20 hydrocodone-acetaminophen 5-325 mg tablet 1 tab PO Q6H MDD 3 tabs PRN (Reason: Pain) olanzapine 2.5 mg tablet 2.5 mg PO DAILY@08 acetaminophen 650 mg Tablet Extended Release 650 mg PO Q6H PRN (Reason: Pain) pantoprazole 40 mg tablet,delayed release (DR/EC) 40 mg PO DAILY@08 metformin 1,000 mg tablet 1,000 mg PO BID@08,20 Risperdal Consta 50 mg/2 mL suspension,extended rel recon 50 mg IM Q14D triamcinolone acetonide 0.1 % cream See Rx Instructions .ROUTE .COMPLEX Rx Instructions: apply to bilateral lower legs topically every day and evening shift for scaly skin with open wounds noted Discharge Orders: Discharge Order (Routine); Ordered 01/29/23 Ordered By: Jayne Baker Other Ambulatory Orders: Complete Blood Count w/Auto (Routine) Timeframe: 5 Days Location: Determined by Patient Ordered By: Jayne Baker Referrals: [facility] [Outside] Jack Purcell DO [Primary Care Provider] - 4-7 days Discharge Activity: Resume usual activity Activity Restrictions/Additional Instructions: Minced and moist dysphagia level 5 diet. Please send patient back to hospital if patient spikes a fever or has worsening shortness of breath Discharge Attestations Time Spent in Discharge Care*: greater than 30 min Quality Metrics Clinical Quality Measures [ No reported AMI, CVA or VTE this stay] Coding Level of Care Code 81821 Total time (in minutes) for Discharge: 35 Diagnoses Pneumonia J18.9
[2023-01-29 16:47] LABS: Glucose Point of Care 174 mg/dL (70-110)
[2023-01-29] MEDS: amoxicillin-clav 875-125 mg Tablet 1 TAB PO (17:30)
[2023-01-29 21:04] LABS: Glucose Point of Care 171 mg/dL (70-110)
[2023-01-29] MEDS: insulin lispro 100 unit/1 mL SUBCUT (21:43)
[2023-01-30 04:00] VITALS: BP 133/86; PULSE 106; RESP 16; O2SAT 98
[2023-01-30 08:00] VITALS: BP 156/99; PULSE 104; RESP 18; TEMP 36.8; O2SAT 97
[2023-01-30] MEDS: amoxicillin-clav 875-125 mg Tablet 1 TAB PO (08:49)
[2023-01-30] MEDS: sennosides-docusate Tablet 1 TAB PO (08:49)
[2023-01-30] MEDS: pantoprazole DR 40 mg Tablet PO (08:49)
[2023-01-30] MEDS: triamcinolone 0.1% cream 15 gm TOPICAL (08:50)
[2023-01-30 09:34] VITALS: BP 156/99; PULSE 104; RESP 18; TEMP 36.8; O2SAT 97
== END 2023-01-30 09:35 | disposition skilled nursing facility (03) | DRG 178 ==
LOC: ER 11:50 → MEDSURG 13:01
PROVIDERS: Student in an Organized Health Care Education/Training Program; Admitting Provider Internal Medicine; Emergency Provider Emergency Medicine; PCP Family Medicine; Visit Provider Internal Medicine
DX: J69.0 Pneumonitis due to inhalation of food and vomit (principal); E87.1 Hypo-osmolality and hyponatremia; Z74.01 Bed confinement status; F20.9 Schizophrenia, unspecified; Z66 Do not resuscitate; Z86.16 Personal history of COVID-19; E11.9 Type 2 diabetes mellitus without complications; G30.9 Alzheimer's disease, unspecified; F02.80 Dementia in other diseases classified elsewhere, unspecified severity, without behavioral disturbance, psychotic disturbance, mood disturbance, and anxiety; I10 Essential (primary) hypertension; R09.02 Hypoxemia
CPT/HCPCS: 36415; 36416; 36573; 36592; 36600; 51702; 71045; 71250; 74230; 80048; 80053; 80061; 81001; 82330; 82550; 82607; 82728; 82746; 82803; 82962; 83036; 83540; 83550; 83605; 83735; 83880; 84100; 84145; 84443; 84484; 85025; 85610; 85730; 86140; 86850; 86900; 86920; 87040; 87086; 87486; 87581; 87633; 92523; 92610; 92611; 93005; 93306; 93970; 94640; 96361; 96365; 96367; 96372; 96374; 96375; 96376; 99285; C1751; C9113; J0610; J1644; J1650; J1815; J1940; J2270; J2543; J2920; J2930; J3370; J3475; J7030; J7042; J7050; J7626; P9046

== ENCOUNTER 2023-01-30 16:35 | Inpatient (IN) | payer MEDICARE, MEDICAID, SELFPAY ==
[2023-01-30] VITALS (20 sets, daily range): BP systolic 98–145; BP diastolic 48–87; PULSE 73–105; RESP 14–28; TEMP 36.7–37.1; O2SAT 89–100; BMI 23.6; BMI 20.6
--- NOTE | 2023-01-30 16:39 | XRR_ITS ---
PROCEDURE INFORMATION: Exam: XR Chest Exam date and time: 01/30/2023 5:00 PM Age: 82 years old Clinical indication: Shortness of breath; Patient HX: SOB; Wheezing; Productive cough TECHNIQUE: Imaging protocol: Radiologic exam of the chest. Views: 1 view. COMPARISON: CR (CHEST, ) 01/29/2023 1:57 PM FINDINGS: Lungs: Bibasilar infiltrates right side greater than left as previously. Increase in upper lung zone infiltrates with pulmonary venous hypertension. Pleural spaces: Small bilateral pleural effusions, unchanged. Heart/Mediastinum: Unremarkable. No cardiomegaly. Bones/joints: Unremarkable. XR/XR chest 1V portable [id number] IMPRESSION: More diffuse pulmonary opacities and pulmonary venous hypertension possibly indicating development of pulmonary edema. Small bilateral effusions unchanged.
--- NOTE | 2023-01-30 16:41 | W.ED.SOB ---
HPI - SOB/Dyspnea General: Chief Complaint: Shortness of Breath/Dyspnea Stated Complaint: SOB Time Seen by Provider: 01/30/23 16:37 Source: EMS Mode of arrival: EMS Limitations: altered mental status History of Present Illness: HPI Narrative: 82-year-old [facility] he has a history of dementia so no history is available from him. Patient was admitted here on the eighth for an aspiration pneumonia has been on antibiotics he was discharged this [facility] states that he has had some hypoxia there he has had no vomiting or diarrhea. Patient is not on any oxygen here and is 96% on room air. Patient is awake and alert Review of Systems General: Reports: ROS unobtainable due to mental status PFSH ED PFSH: Medical History Alzheimer disease Diabetes mellitus, type II Hypertension Schizophrenia Social History Smoking and tobacco/nicotine status: never used tobacco/nicotine Physical Exam Const: COMMON NORMALS: negative for patient oriented x3 HENMT: COMMON NORMALS: normocephalic and atraumatic HEAD & SCALP: normocephalic and atraumatic Eye: COMMON NORMALS: Equal, round and reactive pupils present and EOMs intact bilaterally PUPIL: Yes Equal, round and reactive pupils present Neck/C-Spine: COMMON NORMALS: full ROM and supple Chest: COMMONS NORMALS: normal inspection of the chest and normal palpation of entire chest wall Resp: COMMON NORMALS: normal respiratory effort, No retractions and No use of accessory muscles AUSCULTATION: rales Cardio: COMMON NORMALS: regular rate, regular rhythm and No murmurs present (Cardio) RATE: regular rate RHYTHM: regular rhythm GI: COMMON NORMALS: Normal to inspection, nondistended, normoactive bowel sounds present, Soft to palpation, non-tender and no masses PALPATION: Yes Soft to palpation Extremity: COMMON NORMALS: normal to inspection and full ROM Neuro: COMMON NORMALS: negative for patient oriented x3 Psych: COMMON NORMALS: negative for mental status grossly normal Skin: COMMON NORMALS: no rashes or lesions noted and no wounds GENERAL SKIN EXAM: no rashes or lesions noted Course Vital Signs: Vital signs: Vital Signs Temperature 98.8 F 01/30/23 16:36 Pulse Rate 93 11/12/23 17:30 Respiratory Rate 17 01/30/23 16:36 Blood Pressure 142/74 01/30/23 17:30 Pulse Oximetry 98 01/30/23 17:30 Oxygen Delivery Me thod Room Air 01/30/23 17:30 MDM - SOB/Dyspnea Medical Decision Making Patient presents here with shortness of breath likely from pulmonary edema is x-ray shows worsening pulmonary edema and his BNP is elevated as well did give Lasix spoke to hospitalist will admit for observation. Medical Records I reviewed the patient's medical records. Lab Data I reviewed the patient's lab results. 01/30/23 16:50 01/30/23 16:50 Labs/Radiology: Radiology Impressions Chest X-Ray 01/30/23 16:39 IMPRESSION: More diffuse pulmonary opacities and pulmonary venous hypertension possibly indicating development of pulmonary edema. Small bilateral effusions unchanged. Laboratory Results WBC 11.46 10^3/uL (3.29-11.43) H 01/30/23 16:50 RBC 2.83 10^6/uL (3.85-5.65) L 01/30/23 16:50 Hgb 8.70 g/dL (11.27-16.99) L 01/30/23 16:50 Hct 28.8 % (37-53) L 01/30/23 16:50 MCV 101.8 fl (82-101) H 01/30/23 16:50 MCH 30.7 pg (27-33) 01/30/23 16:50 MCHC 30.2 g/dL (30-55) 01/30/23 16:50 RDW 16.1 % (12.1-15.1) H 01/30/23 16:50 Plt Count 308 10^3/cmm (157-399) 01/30/23 16:50 MPV 10.1 fL (7.4-10.4) 01/30/23 16:50 Neut % (Auto) 72.5 % 01/30/23 16:50 Lymph % (Auto) 16.3 % 01/30/23 16:50 Maverick % (Auto) 9.8 % 01/30/23 16:50 Eos % (Auto) 0.1 % 01/30/23 16:50 Baso % (Auto) 0.1 % 01/30/23 16:50 Neut # (Auto) 8.31 10^3/uL (1.8-7.7) H 01/30/23 16:50 Lymph # (Auto) 1.9 10^3/uL (0.8-4.8) 01/30/23 16:50 Maverick # (Auto) 1.1 10^3/uL (0.2-0.9) H 01/30/23 16:50 Eos # (Auto) 0.0 10^3/uL (0.0-0.8) 01/30/23 16:50 Baso # (Auto) 0.0 10^3/uL (0.0-0.1) 01/30/23 16:50 Nucleated RBC % (auto) 0 % 01/30/23 16:50 Nucleated RBCs # 0.0 /100WBC 01/30/23 16:50 Sodium 142 mmol/L (136-145) 01/30/23 16:50 Potassium 3.8 mmol/L (3.5-5.1) 01/30/23 16:50 Chloride 107 mmol/L (98-107) 01/30/23 16:50 Carbon Dioxide 21 mmol/L (22-29) L 01/30/23 16:50 Anion Gap 17.8 (5-19) 01/30/23 16:50 BUN 13 mg/dL (8-23) 01/30/23 16:50 Creatinine 1.5 mg/dL (0.7-1.2) H 01/30/23 16:50 GFR Calculation Not Reportable 01/30/23 16:50 Glucose 165 mg/dL (65-115) H 01/30/23 16:50 Calculated Osmolality 298 mOsm/kg (285-295) H 01/30/23 16:50 Calcium 6.3 mg/dL (8.5-10.5) L 01/30/23 16:50 Total Bilirubin 0.3 mg/dL (0.15-1.2) 01/30/23 16:50 AST 12 U/L (0-40) 01/30/23 16:50 ALT 6 U/L (0-41) 01/30/23 16:50 Alkaline Phosphatase 52 U/L (40-130) 01/30/23 16:50 NT-Pro-B Natriuret Pep 52681 pg/mL (0-450) H 01/30/23 16:50 Total Protein 6.2 g/dL (6.6-8.7) L 01/30/23 16:50 Albumin 2.2 g/dL (3.5-5.2) L 01/30/23 16:50 Globulin 4.0 g/dL (1.3-4.6) 01/30/23 16:50 All radiology interpretation(s) finalized by discharge Discharge Plan Discharge Patient Disposition: Placed in Observation Clinical Impression: Congestive heart failure, Pulmonary edema Condition: Stable Prescriptions: No Action sennosides-docusate sodium [Senna Plus] 8.6-50 mg Tablet 1 tab PO BID@08,20 magnesium hydroxide [Milk of Magnesia] 400 mg/5 mL Suspension 30 ml PO DAILY PRN (Reason: Constipation) bisacodyl 10 mg Suppository 10 mg ME DAILY PRN (Reason: Constipation) Enema Disposable 19-7 gram/118 mL Enema 118 ml ME DAILY PRN (Reason: Constipation) lisinopril 2.5 mg Tablet 2.5 mg PO DAILY@08 Lamisil AT 1 % Cream 1 applic TOPICAL BID Rx Instructions: apply to back until completely clear nystatin 100,000 unit/mL suspension 5 ml PO QID Rx Instructions: swish ans swallow albuterol sulfate 2.5 mg /3 mL (0.083 %) solution for nebulization 2.5 mg inhalation Q6H PRN (Reason: Shortness Of Breath) divalproex 250 mg tablet,delayed release (DR/EC) 250 mg PO BID@08,20 hydrocodone-acetaminophen 5-325 mg tablet 1 tab PO Q6H MDD 3 tabs PRN (Reason: Pain) olanzapine 2.5 mg tablet 2.5 mg PO DAILY@08 acetaminophen 650 mg Tablet Extended Release 650 mg PO Q6H PRN (Reason: Pain) pantoprazole 40 mg tablet,delayed release (DR/EC) 40 mg PO DAILY@08 metformin 1,000 mg tablet 1,000 mg PO BID@08,20 Risperdal Consta 50 mg/2 mL suspension,extended rel recon 50 mg IM Q14D triamcinolone acetonide 0.1 % cream See Rx Instructions .ROUTE .COMPLEX Rx Instructions: apply to bilateral lower legs topically every day and evening shift for scaly skin with open wounds noted amoxicillin-pot clavulanate 875-125 mg tablet 1 tab PO BID 5 Days Qty: 10 0RF Referrals: Jack Purcell DO [Primary Care Provider] - Coding Level of Care Code ED Brewmaster for Mia Joseph
[2023-01-30 16:59] LABS: Basophils % 0.1 %; Eosinophils % 0.1 %; Hematocrit 28.8 % (37-53); Lymphocytes # 1.9 10^3/uL (0.8-4.8); Lymphocytes % 16.3 %; Mean Corpuscular HGB Conc 30.2 g/dL (30-55); Mean Corpuscular Hemoglobin 30.7 pg (27-33); Mean Corpuscular Volume 101.8 fl (82-101); Mean Platelet Volume 10.1 fL (7.4-10.4); Monocytes # 1.1 10^3/uL (0.2-0.9); Monocytes % 9.8 %; Neutrophils # 8.31 10^3/uL (1.8-7.7); Neutrophils % 72.5 %; Nucleated Red Blood Cells % 0 %; Platelet Count 308 10^3/cmm (157-399); Red Blood Count 2.83 10^6/uL (3.85-5.65); Red Cell Distribution Width 16.1 % (12.1-15.1); White Blood Count 11.46 10^3/uL (3.29-11.43)
[2023-01-30 17:30] LABS: Alanine Aminotransferase 6 U/L (0-41); Albumin Level 2.2 g/dL (3.5-5.2); Alkaline Phosphatase 52 U/L (40-130); Anion Gap 17.8 (5-19); Aspartate Amino Transferase 12 U/L (0-40); Blood Urea Nitrogen 13 mg/dL (8-23); Calcium 6.3 mg/dL (8.5-10.5); Carbon Dioxide 21 mmol/L (22-29); Chloride 107 mmol/L (98-107); Glucose 165 mg/dL (65-115); Osmolality Calculated 298 mOsm/kg (285-295); Potassium 3.8 mmol/L (3.5-5.1); Sodium 142 mmol/L (136-145); Total Bilirubin 0.3 mg/dL (0.15-1.2); Total Protein 6.2 g/dL (6.6-8.7)
[2023-01-30 17:34] LABS: NT Pro B Type Natriuretic Pept 24300 pg/mL (0-450)
--- NOTE | 2023-01-30 17:53 | ECG_ITS ---
[facility] Test Date: 2023-01-30 Pat Name: Shaun Beltran Department: Room: Gender: Male [employer] Director: : 1940 Requested By: Joseph Ambrosio Order Number: [id number] León MD: Nany Shah M.D. Measurements Intervals [place] Rate: 98 P: 0 MN: 0 QRS: 12 QRSD: 90 T: 94 QT: 359 QTc: 460 Interpretive Statements ATRIAL FIBRILLATION POSSIBLE RIGHT VENTRICULAR CONDUCTION DELAY [RSR (QR) IN V1/V2] MINIMAL ST DEPRESSION [0.025+ mV ST DEPRESSION] ABNORMAL QRS-T ANGLE [QRS-T AXIS DIFFERENCE > 60] Compared to ECG 01/26/2023 10:58:07 Sinus tachycardia no longer present ST (T wave) deviation still present Electronically Signed On 01-31-2023 8:09:49 PREPARATION CENTER COORDINATOR by Nany Shah M.D. [id number]
--- NOTE | 2023-01-30 17:53 | CTR_ITS ---
PROCEDURE INFORMATION: Exam: CT Chest Without Contrast; Diagnostic Exam date and time: 01/30/2023 6:29 PM Age: 82 years old Clinical indication: Shortness of breath; Additional info: SOB TECHNIQUE: Imaging protocol: Diagnostic computed tomography of the chest without contrast. Radiation optimization: All CT scans at this facility use at least one of these dose optimization techniques: automated exposure control; mA and/or kV adjustment per patient size (includes targeted exams where dose is matched to clinical indication); or iterative reconstruction. REPORTING DATA: Count of CT and Cardiac NM exams in prior 12 months: This patient has received 0 known CTs and 0 known cardiac nuclear medicine studies in the 12 months prior to the current study. COMPARISON: CR (CHEST, ) 01/30/2023 5:00 PM RADIATION DOSE METRICS: Total DLP (mGy-cm): 453.37 FINDINGS: Thyroid: There is a large 3 x 4 cm sized hypodense nodule inferior aspect of the lower pole of the right lobe of the thyroid. Follow-up non-emergent thyroid ultrasound is recommended. Lungs: There is compressive atelectasis of both lower lobes. Pleural spaces: There are large bilateral pleural effusions. Heart: Heart is within normal limits of size. There is no evidence of pericardial fluid collections. Coronary arteries: There is severe atherosclerotic calcification of the coronary arteries. Lymph nodes: There is right paratracheal lymph node measuring 14 x 22 mm and some mildly prominent subcarinal and prevascular nodes. Vasculature: Unremarkable. No aortic aneurysm. Bones/joints: There is degenerative change in the thoracic spine with calcification of the anterior longitudinal ligament and mild osteophyte formation. There is Schmorl's node deformity of the superior endplate of T12 of uncertain age but likely chronic.There is no evidence of acute fracture. Soft tissues: Unremarkable. CT/CT chest wo con [id number] IMPRESSION: 1. Large bilateral pleural effusions 2. Compressive atelectasis of both lower lobes. 3. No acute infiltrate 4. Large right thyroid nodule. Consider follow-up with non urgent thyroid ultrasound of the patient's condition permits. COMMENTS: Consistent with the [employer]'s Incidental Findings Committee white paper (J Am Elena Radiol 2015): In patients aged 35 years and older with an incidental thyroid nodule equal to or greater than 1.[address], MRI or extrathyroidal US, further evaluation with dedicated thyroid US is recommended for patients with normal life expectancy and without comorbidities. For smaller nodules without suspicious features, no further evaluation or follow up is recommended.
--- NOTE | 2023-01-30 17:59 | P.HP_ITS ---
Providers/Chief Complaint Primary Care Provider: Jack Purcell DO Chief Complaint: SOB History of Present Illness Shaun Beltran is a 82 year old male with a past medical history of chronic schizophrenia, awarded guardianship of the state, DNR/DNI, history of COVID, type 2 diabetes mellitus, recent hospital discharge for aspiration pneumonia who presents to [facility] due to shortness of breath, wheezing, crackles on exam, hypoxia. Currently patient is alert to person, not to place, not to time, he tells me he is not feeling well, that is all I can get from him, according to ER physician, he was sent from intermediate facility, for hypoxia, no vomiting episodes, currently is on room air, O2 sats in the mid 90s, normotensive, afebrile, has wheezing and crackles on examination, Review of Systems General: Reports: ROS unobtainable due to mental status Medications/Allergies Home Medications Medication Instructions Recorded Confirmed Last Taken Type bisacodyl 10 mg rectal suppository 10 mg MN DAILY PRN Constipation 06/14/19 01/26/23 Unknown History lisinopril 2.5 mg tablet 2.5 mg PO DAILY@08 06/14/19 01/26/23 01/26/23 History magnesium hydroxide 400 mg/5 mL 30 ml PO DAILY PRN Constipation 06/14/19 01/26/23 Unknown History oral suspension (Milk of Magnesia) sennosides 8.6 mg-docusate sodium 1 tab PO BID@06/14/19 01/26/23 Unknown History 50 mg tablet (Senna Plus) sodium phosphates 19 gram-7 118 ml MN DAILY PRN Constipation 06/14/19 01/26/23 Unknown History gram/118 mL enema (Enema Disposable) acetaminophen 650 mg 650 mg PO Q6H PRN Pain 01/26/23 01/26/23 Unknown History tablet,extended release albuterol sulfate 2.5 mg/3 mL 2.5 mg inhalation Q6H PRN 01/26/23 01/26/23 01/26/23 08:00 History (0.083 %) solution for nebulization Shortness Of Breath divalproex 250 mg tablet,delayed 250 mg PO BID@01/26/23 01/26/23 01/26/23 08:00 History release hydrocodone 5 mg-acetaminophen 325 1 tab PO Q6H PRN Pain 01/26/23 01/26/23 Unknown History mg tablet metformin 1,000 mg tablet 1,000 mg PO BID@01/26/23 01/26/23 01/26/23 08:00 History nystatin 100,000 unit/mL oral 5 ml PO QID 01/26/23 01/26/23 01/26/23 History suspension olanzapine 2.5 mg tablet 2.5 mg PO DAILY@01/26/23 01/26/23 01/26/23 History pantoprazole 40 mg tablet,delayed 40 mg PO DAILY@01/26/23 01/26/23 01/26/23 History release risperidone microspheres 50 mg/2 50 mg IM Q14D 01/26/23 01/26/23 Unknown History mL intramuscular susp,ext release (Risperdal Consta) terbinafine HCl 1 % topical cream 1 applic topical BID 01/26/23 01/26/23 Unknown History (Lamisil AT) triamcinolone acetonide 0.1 % See Rx Instructions .Route .COMPLEX 01/26/23 01/26/23 Unknown History topical cream amoxicillin 875 mg-potassium 1 tab PO BID 5 days #10 tabs 01/28/23 Unknown Rx clavulanate 125 mg tablet Allergies Allergy/AdvReac Type Severity Reaction Status Date / Time chlorpromazine Allergy Unknown Verified 06/14/19 17:39 haloperidol [From Haldol] Allergy Unconscious Verified 06/14/19 17:39 PFSH Acute PFSH: Medical History Alzheimer disease Diabetes mellitus, type II Hypertension Schizophrenia Social History Smoking and tobacco/nicotine status: never used tobacco/nicotine Vitals/I&O/Wt Last Vital Signs Temp 98.8 F 01/30/23 16:36 Pulse 93 01/30/23 17:30 Resp 17 01/30/23 16:36 BP 142/74 01/30/23 17:30 Pulse Ox 98 01/30/23 17:30 O2 Del Method Room Air 01/30/23 17:30 Weight last 48 hrs Weight 74.843 kg Physical Exam Const: COMMON NORMALS: no acute distress EXAM LIMITATIONS: altered mental status ORIENTATION/CONSCIOUSNESS: Yes awake, Yes oriented to person and Yes confused; not oriented to place and not oriented to time HENMT: COMMON NORMALS: normocephalic Eye: COMMON NORMALS: Equal, round and reactive pupils present Neck/C-Spine: COMMON NORMALS: no lymphadenopathy Chest: COMMONS NORMALS: normal inspection of the chest Resp: OTHER: Wheezing and crackles in all lung gustafson, no intercostal suprasternal retractions, on room air, Cardio: COMMON NORMALS: regular rate, regular rhythm, S1 normal heart sound present and S2 normal heart sound present RATE: regular rate RHYTHM: regular rhythm HEART SOUNDS: S1 normal heart sound present and S2 normal heart sound present GI: COMMON NORMALS: Normal to inspection, nondistended, normoactive bowel sounds present, Soft to palpation and non-tender Extremity: NARRATIVE EXTREMITY EXAM: 1+ pitting edema Neuro: OTHER: Does not follow neurologic testing Psych: OTHER: Has evidence of muscle wasting, proximal muscle wasting, bilateral temporal muscle wasting, bilateral thighs, muscle wasting bilateral calves muscle wasting bilateral shoulders and arms muscle wasting Data 01/30/23 16:50 01/30/23 16:50 A&P Assessment and plan (1) Acute respiratory failure: (2) Aspiration pneumonia: (3) Aspiration pneumonitis: (4) Congestive heart failure: (5) Pulmonary edema: (6) TANO (acute kidney injury): (7) Protein calorie malnutrition: (8) Physical deconditioning: (9) Muscle wasting: Plan Acute hypoxic respiratory failure, likely multifactorial from aspiration pneumonia, aspiration pneumonitis, pulm edema ? Monitor respiratory status closely, ? Continue monitoring on MedSurg, Aspiration pneumonia, aspiration pneumonitis, ? Sputum cultures, blood cultures, ? Pro-Won, CRP ? Respiratory viral panel, ? Zosyn, ? Aspiration precautions, ? Keep n.p.o. for now, speech therapy eval Pulm edema, acute CHF exacerbation, type unknown ? CT of the chest, ? Has received Lasix 60 mg IV push once, fluid restrictions at 1000 cc, ? Monitor BMP, trend creatinine, monitor potassium ? Does have BNP over 20,000, lower extremity pitting edema, Acute encephalopathy likely multifactorial from aspiration ammonia, aspiration pneumonitis, respiratory failure, underlying dementia, Physical deconditioning, protein calorie malnutrition, muscle wasting, consult dietary, speech therapy eval, Type 2 diabetes mellitus, low-dose sliding scale, TANO, creatinine 1.5, monitor, DNR/DNI, as per documentation during last hospitalization, has a DNR in the chart, guardian of the state Jack Carroll ? Lovenox for DVT prophylaxis Attestations Medical Necessity Statement*: Patient requires hospitalization, inpatient, greater than 2 midnights, for aspiration pneumonia, aspiration pneumonitis, pulm edema, systolic CHF, TANO, respiratory failure, Diagnoses Acute respiratory failure J96.00 Aspiration pneumonia J69.0 Aspiration pneumonitis J69.0 Congestive heart failure I50.9 Pulmonary edema J81.1 TANO (acute kidney injury) N17.9 Protein calorie malnutrition E46 Physical deconditioning R53.81 Muscle wasting M62.50
[2023-01-30] MEDS: FUROsemide 10 mg/mL SDV 10mL 60 MG IVP (18:08)
[2023-01-30 18:29] LABS: C Reactive Protein 98.8 mg/L (0.0-4.9)
[2023-01-30 18:33] LABS: Troponin(5th) Baseline 235 ng/L (0-15)
[2023-01-30 18:35] LABS: Procalcitonin 0.19 ng/mL (0-0.5)
[2023-01-30 18:42] LABS: Thyroid Stimulating Hormone 2.23 uIU/mL (0.27-4.20)
[2023-01-30] MEDS: methylPREDNISolone sod succ 125 MG in water for injection-sterile 2 ML 24 MG IVP (19:03)
[2023-01-30] MEDS: piperacillin-tazobactam 3.375 GM in sodium chloride 0.9% (plus) 50 ML IV (19:04)
[2023-01-30 19:23] LABS: Troponin 5 2HR Delta 8.3 ABS# (0-10)
[2023-01-30 19:24] LABS: Troponin 5 2HR 243.3 ng/L (0-15)
[2023-01-30 19:25] LABS: Lactic Sepsis W/Reflex 1.9 mmol/L (0.5-2.2)
[2023-01-30] MEDS: enoxaparin 40 mg/0.4 mL Syringe SUBCUT (20:50)
[2023-01-30] MEDS: insulin lispro 100 unit/1 mL SUBCUT (20:50)
[2023-01-30 21:02] LABS: Glucose Point of Care 147 mg/dL (70-110)
[2023-01-30 21:10] LABS: Add Urine Microscopic? YES; Bilirubin Urine Neg (Negative); Blood Urine 3+ (Negative); Glucose Urine UA Norm (Normal); Ketones Urine 1+ (Negative); Leukocyte Esterase Urine Negative (Negative); Nitrate Urine Negative (Negative); Protein Urine Trace (Negative); Urine Appearance Clear (CLEAR); Urine Color Colorless (Yellow); Urobilinogen Urine Neg (Negative); pH Urine 5 (5-7)
[2023-01-30 21:13] LABS: Add Urine Culture? Yes; Amorphous Sediment Urine 1+ /hpf; Squamous Epithelial Cell Urine 0-4 /hpf (0-5); WBC Urine RARE /hpf (0-5)
--- NOTE | 2023-01-30 21:44 | W.PM.EVENTAC ---
Event Note Event Note: Received a call regarding patient's family in the hallway very upset that she is hungry, pur?ed food has not been filling enough for her and she has been feeling hungry without her usual meals. At current time an additional meal cannot be prepared for her as kitchen is now closed. I apologize regarding his concerns. She did eat pur?ed dinner but the states pur?ed food has been satieting for her and that that is all that she is getting. He has been feeling aggravated and stating he was going to get her something to eat, be at a sandwich or fries otherwise will be taking her home AGAINST MEDICAL ADVICE. Discussed alternatives that we could try to use to supplement her meal tonight, as well as current concerns noted on review of her chart to avoid certain consistencies due to dysphagia, risk of aspiration with for now still recommendation stone findings by speech therapy for dysphagia diet currently with pur?ed and thickened liquids due to risk of choking, complications including aspiration pneumonia, and/or asphyxiation and . Patient's states that he has been feeding her for a long time and knows exactly how to do it so that she is not choking, stays by her side at all times, states that pur?ed diet has not been feeling her up, states that it will be the same problem with trying Ensure or other nutrition supplements offered, wanting to go out and get her sandwich or another takeout meal tonight otherwise considering leaving AGAINST MEDICAL ADVICE due to her going hungry with pur?ed diet not achieving satiety. Discussed with him risks with premature advancement of diet, on review of speech therapy documentation continued attempts at advancement, still having difficulty, getting tired through meals. stating that he wishes there could be more communication regarding these findings and her other medical problems, expressing concern about her having dialysis 3 days in a row. I apologized regarding their misgivings. We discussed with him and nursing staff how we can help tonrosetta, to see if something can be prepared for her here similar in consistency to her recommended diet for tonight that could be perhaps safer than a takeout meal. understands that there may be risk of aspiration as discussed, states that he will also be supervising her for this additional meal, diet otherwise is not yet advanced as discussed with him, pending further consideration as we discussed a standing diet order would mean that she will receive those meals from now on even if he is not there to assist her. He finds this a reasonable course of action at current time. Please reach out to him tomorrow to visit regarding options, possibilities and/or limitations for advancement. Alternatively consideration of advancement if she is not able to safely advance yet and in case of comfort becoming priority with understanding of risk of aspiration, consideration of overall goals of care which we briefly discussed could be a potential option if that was something they were ready for. If possible please coordinate to notify the when speech therapy will be working with her tomorrow so that he can be present and participate, sharing his knowledge of her predispositions as well as observe their findings during the evaluation as he will also be taking care of and supervising her meals after discharge.
--- NOTE | 2023-01-30 22:40 | PC.NURSE ---
Physician Communication Patient NPO with [facility] order active. Dr. Apodaca contacted and order received for a nursing bedside swallow evaluation, if patient fails evaluation then keep patient strict NPO. Additionally, kirk catheter in place from prior to this admission, with insertion sticker dated for 01-23-23. Dr. Apodaca notified of placement date; no new orders received. Per nursing dysphagia screening, patient did fail swallow evaluation. Dr. Apodaca notified. Furthermore, patient noted to have ulcers on left great, second, and fourth toes, a skin tear on the left sanchez, a stage 1 pressure injury with an intact blister on his sacrum, as well as +2 pitting edema in his right leg and +1 pitting edema in the left leg. Wounds and edema showed to Dr. Apodaca and order placed by Dr. Apodaca for daily dressing changes.
[2023-01-30 22:48] LABS: Adenovirus Not Detected (NOT DETECT); Chlamydia Pneumoniae Not Detected (NOT DETECT); Coronavirus 229E,HKU1,NL63,OC4 Not Detected (NOT DETECT); Human Metapneumovirus Not Detected (NOT DETECT); Human Rhinovirus/Enterovirus Not Detected (NOT DETECT); Influenza A Not Detected (NOT DETECT); Influenza A H1 Not Detected (NOT DETECT); Influenza A H1-2009 Not Detected (NOT DETECT); Influenza A H3 Not Detected (NOT DETECT); Influenza B Not Detected (NOT DETECT); Mycoplasma Pneumoniae Not Detected (NOT DETECT); Parainfluenza Virus Type 1 Not Detected (NOT DETECT); Parainfluenza Virus Type 2 Not Detected (NOT DETECT); Parainfluenza Virus Type 3 Not Detected (NOT DETECT); Parainfluenza Virus Type 4 Not Detected (NOT DETECT); Respiratory Syncytial Virus A Not Detected (NOT DETECT); Respiratory Syncytial Virus B Not Detected (NOT DETECT); SARS-COV-2 Not Detected (NOT DETECT)
[2023-01-30] MEDS: heparin drip 25,000 UNIT/500 ML PREMIX 18.29 UNIT IV (22:57)
--- NOTE | 2023-01-30 23:29 | PC.NURSE ---
No Heparin Bolus Order received from Dr. Apodaca to not administer any heparin bolus with initiation of drip. Protocol to be followed thereafter.
[2023-01-30 23:33] LABS: Troponin 5 6HR 255.9 ng/L (0-15)
[2023-01-30 23:34] LABS: Troponin 5 6HR Delta 20.9 ng/L (0-12)
--- NOTE | 2023-01-30 23:53 | ECG_ITS ---
[facility] Test Date: 2023-01-31 Pat Name: Shaun Beltran Department: Room: [facility] Gender: Male Dinkey Operator: : 1940 Requested By: Joseph Ambrosio Order Number: [id number] Traoer MD: Nany Shah M.D. Measurements Intervals [place] Rate: 86 P: 24 PA: 136 QRS: 2 QRSD: 82 T: 96 QT: 381 QTc: 456 Interpretive Statements SINUS RHYTHM POSSIBLE RIGHT VENTRICULAR CONDUCTION DELAY [RSR (QR) IN V1/V2] NONSPECIFIC ST & T-WAVE ABNORMALITY Compared to ECG 01/30/2023 18:18:13 T-wave abnormality now present Atrial fibrillation no longer present ST (T wave) deviation no longer present Electronically Signed On 02-01-2023 1:53:30 CROWN IRONER by Nany Shah M.D. [id number]
[2023-01-31] VITALS (96 sets, daily range): BP systolic 78–145; BP diastolic 40–94; PULSE 66–118; RESP 7–30; TEMP 35.9–36.8; O2SAT 84–100; BMI 20.6
[2023-01-31] MEDS: aspirin 300 mg Supp PR (00:29)
[2023-01-31] MEDS: piperacillin-tazobactam 3.375 GM in sodium chloride 0.9% (plus) 50 ML IV ×3 (02:05→17:06)
[2023-01-31 05:57] LABS: Basophils % 0.1 %; Hematocrit 30.3 % (37-53); Lymphocytes # 0.8 10^3/uL (0.8-4.8); Lymphocytes % 8.1 %; Mean Corpuscular HGB Conc 29.7 g/dL (30-55); Mean Corpuscular Hemoglobin 29.8 pg (27-33); Mean Corpuscular Volume 100.3 fl (82-101); Mean Platelet Volume 10.4 fL (7.4-10.4); Monocytes # 0.4 10^3/uL (0.2-0.9); Monocytes % 3.6 %; Neutrophils # 8.61 10^3/uL (1.8-7.7); Neutrophils % 86.6 %; Nucleated Red Blood Cells % 0 %; Platelet Count 312 10^3/cmm (157-399); Red Blood Count 3.02 10^6/uL (3.85-5.65); Red Cell Distribution Width 16.2 % (12.1-15.1); White Blood Count 9.95 10^3/uL (3.29-11.43)
[2023-01-31] MEDS: heparin 5,000 unit/mL INJ 1 mL IV (06:16)
[2023-01-31 06:44] LABS: Albumin Level 2.5 g/dL (3.5-5.2); Alkaline Phosphatase 51 U/L (40-130); Calcium 6.2 mg/dL (8.5-10.5); Chloride 106 mmol/L (98-107); Globulin 3.3 g/dL (1.3-4.6); Glucose 149 mg/dL (65-115); Osmolality Calculated 300 mOsm/kg (285-295); Phosphorus 5.1 mg/dL (2.5-4.5); Sodium 143 mmol/L (136-145); Total Protein 5.8 g/dL (6.6-8.7)
[2023-01-31 06:48] LABS: NT Pro B Type Natriuretic Pept 32338 pg/mL (0-450)
[2023-01-31 06:57] LABS: Blood Urea Nitrogen 17 mg/dL (8-23); Carbon Dioxide 20 mmol/L (22-29); Magnesium 0.7 mg/dL (1.7-2.3)
[2023-01-31 06:58] LABS: Alanine Aminotransferase < 5 U/L (0-41); Aspartate Amino Transferase 9 U/L (0-40); Total Bilirubin 0.3 mg/dL (0.15-1.2)
--- NOTE | 2023-01-31 07:28 | PC.PHAR ---
PT RETURNED FROM THE [facility] AFTER AM DISCHARGE FROM HERE. MED LIST UNCHANGED EXCEPT AUGMENTIN 875 TWICE DAILY UNTIL GONE. 01/31/23
--- NOTE | 2023-01-31 08:25 | PC.OT ---
OT EVALUATION ORDERS RECEIVED. PER SNF WHERE PATIENT IS A RESIDENT; PATIENT IS BED BOUND AND DEPENDENT IN ALL CARE INCLUDING FEEDING HIMSELF. PATIENT IS NOT APPROPRIATE FOR SKILLED OT TREATMENT.
[2023-01-31 08:45] LABS: Glucose Point of Care 153 mg/dL (70-110)
[2023-01-31] MEDS: methylPREDNISolone sod succ 40 mg/mL INJ IVP ×2 (09:23→16:15)
[2023-01-31] MEDS: nystatin 100,000 unit/mL UDC 5 mL 500000 UNIT PO ×4 (09:23→20:37)
[2023-01-31] MEDS: FUROsemide 10 mg/mL SDV 4mL 40 MG IVP (09:23)
[2023-01-31] MEDS: magnesium sulfate premix 4 GM/100 ML PREMIX IV (09:24)
[2023-01-31] MEDS: insulin lispro 100 unit/1 mL SUBCUT ×3 (09:24→17:06)
[2023-01-31] MEDS: neomycin-poly-bacitracin oint 28 gm 1 APPLIC TOPICAL (09:44)
--- NOTE | 2023-01-31 10:00 | PC.PT ---
Patient is determined to be bedbound and total assist for all mobility for previous 5 years per staff at his nursing facility. Patient is not an appropriate candidate for skilled physical therapy evaluation or intervention.
[2023-01-31 11:43] LABS: Glucose Point of Care 145 mg/dL (70-110)
[2023-01-31 14:03] LABS: Partial Thromboplastin Time 142.6 SECONDS (23.9-36.7)
[2023-01-31 14:54] LABS: Anion Gap 17.6 (5-19); Blood Urea Nitrogen 19 mg/dL (8-23); Calcium 6.1 mg/dL (8.5-10.5); Carbon Dioxide 21 mmol/L (22-29); Chloride 108 mmol/L (98-107); Glucose 162 mg/dL (65-115); Magnesium 1.5 mg/dL (1.7-2.3); Osmolality Calculated 302 mOsm/kg (285-295); Potassium 3.6 mmol/L (3.5-5.1); Sodium 143 mmol/L (136-145)
[2023-01-31] MEDS: midodrine 5 mg TABLET PO ×2 (16:14→20:37)
[2023-01-31 17:02] LABS: Glucose Point of Care 189 mg/dL (70-110)
[2023-01-31] MEDS: magnesium sulfate premix 2 GM/50 ML PIGGYBACK IV (17:07)
[2023-01-31] MEDS: norepinephrine 4 MG/250 ML BAG 7.5 MG IV (17:11)
--- NOTE | 2023-01-31 18:24 | XRR_ITS ---
PROCEDURE INFORMATION: Exam: XR Chest Exam date and time: 01/31/2023 7:31 PM Age: 82 years old Clinical indication: Device placement; Picc; Additional info: Picc line placement verification TECHNIQUE: Imaging protocol: Radiologic exam of the chest. Views: 1 view. COMPARISON: CT chest wo [place] [id number] 01/30/2023 6:29 PM FINDINGS: Tubes, catheters and devices: Right PICC line tip over the proximal right atrium, 1.5 cm distal to the atrial caval junction. Lungs: Moderate bibasilar atelectasis and/or infiltrate and/or effusion. Pleural spaces: Unremarkable. No pleural effusion. No pneumothorax. Heart/Mediastinum: Unremarkable. No cardiomegaly. Bones/joints: Unremarkable. XR/XR chest 1V portable [id number] IMPRESSION: 1. Right PICC line tip over the proximal right atrium, 1.5 cm distal to the atrial caval junction. 2. Moderate bibasilar atelectasis and/or infiltrate and/or effusion.
--- NOTE | 2023-01-31 18:44 | PM.PN ---
Subjective Subjective: Patient was examined multiple times throughout the morning, into the afternoon, ? Early in the morning of examination alert to person, not to place, not to time, he was having a bedside ultrasound, spoke to radio drafter cartographic, patient has evidence of right lower extremity DVT, confirmed with Dr. Santa, patient has a right lower extremity DVT, ? He does not vocalize any pain, he does not follow commands, afebrile overnight, normotensive, on 2 L, ? Patient's systolic blood pressures are dropping below map of 65, likely related to septic shock, outflow obstruction for PE, ? Spoke to patient's guardian Jack Carrlol, agreeable to PICC line, agreeable to starting Levophed ? Discussed goals of care, patient is a DNR/DNI, confirmed this with him, ? If patient's clinical condition continues to deteriorate, agreeable for comfort care however continue medical interventions for now Vitals/I&O/Wt Last Vital Signs Temp 97.8 F 01/31/23 16:00 Pulse 86 01/31/23 18:00 Resp 22 H 01/31/23 18:00 BP 117/60 01/31/23 18:00 Pulse Ox 97 01/31/23 18:00 O2 Del Method Nasal Cannula 01/31/23 08:00 O2 Flow Rate 2.5 01/31/23 08:00 01/31/23 01/31/23 01/31/23 06:59 14:59 22:59 Intake Total 232.603 / 234.603 317.150 / 317.150 110 / 427.150 Output Total 660 / 660 125 / 125 150 / 275 Balance -427.397 / -425.397 192.150 / 192.150 -40 / 152.150 Weight last 48 hrs Weight 65.317 kg Weight 65.317 kg Weight 74.843 kg Physical Exam Const: COMMON NORMALS: no acute distress ORIENTATION/CONSCIOUSNESS: Yes awake and Yes confused; not oriented to person, not oriented to place and not oriented to time Resp: COMMON NORMALS: normal respiratory effort, No retractions and No use of accessory muscles AUSCULTATION: wheezes Cardio: COMMON NORMALS: regular rate, regular rhythm, S1 normal heart sound present and S2 normal heart sound present RATE: regular rate RHYTHM: regular rhythm HEART SOUNDS: S1 normal heart sound present and S2 normal heart sound present GI: COMMON NORMALS: Normal to inspection, nondistended, normoactive bowel sounds present and non-tender Extremity: COMMON NORMALS: no pedal edema Neuro: SENSORIUM/ORIENTATION: No oriented to person, No oriented to place and No oriented to time Psych: COMMON NORMALS: mental status grossly normal Urinary Catheter Management: Hernandez: Cath Placed During This Visit: no Reason for Continuing Indwelling Catheter: Chronic Indwelling Urinary Catheter on Admission Sepsis: Is patient septic: Yes Focused sepsis exam performed: Yes Focused sepsis exam: DP PT pulses diminished bilaterally, capillary refill greater than 2 seconds, Data 01/31/23 05:23 01/31/23 14:32 Micro: Microbiology 01/30/23 18:56 Blood Culture - Preliminary Blood SPECIMEN COLLECTED 01/30/23 18:50 Blood Culture - Preliminary Blood SPECIMEN COLLECTED A&P Assessment and plan (1) Acute respiratory failure: (2) Aspiration pneumonia: (3) Aspiration pneumonitis: (4) Congestive heart failure: (5) Pulmonary edema: (6) TANO (acute kidney injury): (7) Protein calorie malnutrition: (8) Physical deconditioning: (9) Muscle wasting: (10) NSTEMI (non-ST elevated myocardial infarction): (11) Elevated d-dimer: (12) Right leg DVT: (13) Pulmonary embolism: (14) Shock: (15) Acute renal failure: (16) Septic shock: Plan Acute hypoxic respiratory failure, likely multifactorial from high likelihood of pulmonary embolism, right lower extremity DVT, NSTEMI aspiration pneumonia, aspiration pneumonitis, pulm edema ? Monitor respiratory status closely, ? Continue monitoring on MedSurg, Elevated D-dimer, with respiratory failure, with elevated troponins, ? Highly suspicious for pulmonary embolism ? Cannot do CT angiogram given creatinine, ? Continue heparin drip, Right lower extremity DVT heparin drip NSTEMI ? Type II, however cannot rule out underlying cardiac etiology given age and risk factors ? Likely multifactorial from respiratory failure, right lung, DVT highly suspicious for pulmonary embolism, ? Pulm edema, aspiration pneumonia Shock ? MAP less than 65, likely outflow shock and a component of septic shock, ? Related aspiration morning, ? Related to pulmonary embolism ? Related to NSTEMI, ? Place PICC line ? Start Levophed Aspiration pneumonia, aspiration pneumonitis, ? Sputum cultures, blood cultures, ? Pro-Won, CRP ? Respiratory viral panel, ? Continue Zosyn, ? Aspiration precautions, ? Keep n.p.o. for now, speech therapy eval Pulm edema, acute CHF exacerbation, type unknown ? CT of the chest, CT/CT chest wo con [id number] IMPRESSION: 1. ? Large bilateral pleural effusions 2. ? Compressive atelectasis of both lower lobes. 3. ? No acute infiltrate 4. ? Large right thyroid nodule. Consider follow-up with non urgent thyroid ultrasound of the patient's condition permits. ? Has received Lasix 60 mg IV push once, fluid restrictions at 1000 cc, 1 dose of 40 mg IV push Lasix ? Based on clinical progress will consider thoracocentesis ? Monitor BMP, trend creatinine, monitor potassium ? Does have BNP over 20,000, lower extremity pitting edema, Acute encephalopathy likely multifactorial from aspiration ammonia, aspiration pneumonitis, respiratory failure, underlying dementia, Physical deconditioning, protein calorie malnutrition, muscle wasting, consult dietary, speech therapy eval, Type 2 diabetes mellitus, low-dose sliding scale, TANO, creatinine 1.6, decreasing urine output, highly concerning for developing acute renal failure ? Likely related to PE, NSTEMI, DVT ? Continue to monitor urine output ? Patient is DNR/DNI DNR/DNI, ? Goals of care discussion with Jack Carroll, ? Agreeable to PICC line placement, agreeable to Levophed, ? Discussed goals of care patient remains DNR/DNI, ? If patient's clinical condition deteriorates, worsening respiratory failure, worsening shock, not amenable to medical intervention, agreeable to proceed with comfort care Attestations Medical Necessity Statement*: Patient requires hospitalization for shock, septic shock, outflow obstruction shock, NSTEMI, DVT, PE, respiratory failure its right Coding Level of Care Code Critical Care >/= 30 minutes Critical care time (in minutes): 45 The high probability of a clinically significant, sudden or life threatening deterioration, as referenced in this documentation, required my full and direct attention, intervention and personal management. The critical care time shown is in addition to time spent performing any reported separately billable procedures and includes the following: [x] Data and vital sign review and interpretation [x] Patient assessment, examination and intervention [x] Medication orders and management [x] Patient/Family updates as able [x] Care Coordination and Documentation. Diagnoses Acute respiratory failure J96.00 Aspiration pneumonia J69.0 Aspiration pneumonitis J69.0 Congestive heart failure I50.9 Pulmonary edema J81.1 TANO (acute kidney injury) N17.9 Protein calorie malnutrition E46 Physical deconditioning R53.81 Muscle wasting M62.50 NSTEMI (non-ST elevated myocardial infarction) I21.4 Elevated d-dimer R79.89 Right leg DVT I82.401 Pulmonary embolism I26.99 Shock R57.9 Acute renal failure N17.9 Septic shock A41.9; R65.21
--- NOTE | 2023-01-31 19:24 | PC.NURSE ---
Consulted for placement of PICC r/t vesicant therapy. Staff had obtained consent prior to my arrival as pt is [place] of state and demented. Assessed RUE and noted basilic to be good target vessel at 4.4mm in diameter and free of evidence of thrombus or stenosis. Using US guidance, MST, and sterile technique the RUE basilic vein was accessed x 1 stick. Device fed easily. Device secured and dressed. All 3 ports aspirate and flush easily. EBL 5ml. Device is 42 cm with 0 danita at skin. Noted RUE is 23 cm in circumference at 10 cm above the AC fossa. Pt tolerated well. Report to primary nurse MASON Mcwilliams. Chest xray ordered and performed.
[2023-01-31 20:35] LABS: Glucose Point of Care 137 mg/dL (70-110)
[2023-01-31] MEDS: divalproex DR 250 mg Tablet PO (20:37)
[2023-01-31] MEDS: budesonide 0.5 mg/2 mL Neb INHALATION (21:17)
--- NOTE | 2023-01-31 22:29 | USCV_ITS ---
Shaun Beltran Age: 82 Gender: M : 1940 Exam Date: 01/31/2023 08:50 Ordering Phys: Jake Apodaca MD Technologist: Conor Shipley Exam Location: [facility] [place] Indication: pe PROCEDURES: The venous duplex Doppler examination of both lower extremities was performed in the standard fashion. The following venous structures were evaluated: common femoral vein, profunda vein, proximal portion of the greater saphenous vein, superficial femoral vein, and the popliteal vein. FINDINGS: There is dvt in the rt fv and rt profunda. The left leg is normal CONCLUSIONS DVT RIGHT FV and profunda Normal Left Lower extremity D/w Dr Mohan at 1400 Luis Fernando Santa MD (Electronically Signed) Final Date: 31 January 2023 14:06 S
[2023-02-01] VITALS (96 sets, daily range): BP systolic 88–145; BP diastolic 44–102; PULSE 65–109; RESP 14–32; TEMP 36.4–37.2; O2SAT 90–100; BMI 20.9
[2023-02-01] MEDS: methylPREDNISolone sod succ 40 mg/mL INJ IVP ×3 (01:12→17:08)
[2023-02-01] MEDS: piperacillin-tazobactam 3.375 GM in sodium chloride 0.9% (plus) 50 ML IV ×3 (01:13→17:09)
[2023-02-01 04:09] LABS: Basophils % 0.1 %; Hematocrit 27.7 % (37-53); Lymphocytes # 0.9 10^3/uL (0.8-4.8); Lymphocytes % 7.6 %; Mean Corpuscular HGB Conc 29.2 g/dL (30-55); Mean Corpuscular Hemoglobin 30.1 pg (27-33); Mean Platelet Volume 10.8 fL (7.4-10.4); Monocytes # 0.7 10^3/uL (0.2-0.9); Monocytes % 6.4 %; Neutrophils # 9.47 10^3/uL (1.8-7.7); Neutrophils % 84.6 %; Nucleated Red Blood Cells % 0 %; Platelet Count 349 10^3/cmm (157-399); Red Blood Count 2.69 10^6/uL (3.85-5.65); Red Cell Distribution Width 15.9 % (12.1-15.1); White Blood Count 11.18 10^3/uL (3.29-11.43)
[2023-02-01 04:18] LABS: INR 1.62 (0.8-1.2)
[2023-02-01 04:19] LABS: Partial Thromboplastin Time 55.5 SECONDS (23.9-36.7)
[2023-02-01] MEDS: heparin drip 25,000 UNIT/500 ML PREMIX 14 UNIT IV (04:28)
[2023-02-01 04:29] LABS: Alanine Aminotransferase < 5 U/L (0-41); Albumin Level 2.2 g/dL (3.5-5.2); Alkaline Phosphatase 39 U/L (40-130); Anion Gap 19.5 (5-19); Aspartate Amino Transferase 7 U/L (0-40); Blood Urea Nitrogen 24 mg/dL (8-23); Calcium 6.3 mg/dL (8.5-10.5); Carbon Dioxide 21 mmol/L (22-29); Chloride 107 mmol/L (98-107); Globulin 3.3 g/dL (1.3-4.6); Glucose 219 mg/dL (65-115); Magnesium 1.9 mg/dL (1.7-2.3); Osmolality Calculated 309 mOsm/kg (285-295); Phosphorus 5.6 mg/dL (2.5-4.5); Potassium 3.5 mmol/L (3.5-5.1); Sodium 144 mmol/L (136-145); Total Bilirubin 0.2 mg/dL (0.15-1.2); Total Protein 5.5 g/dL (6.6-8.7)
[2023-02-01 04:30] LABS: Lactate (Lactic Acid level) 0.8 mmol/L (0.5-2.2)
[2023-02-01 04:39] LABS: Creatine Phosphokinase 46 U/L (39-308); NT Pro B Type Natriuretic Pept 19173 pg/mL (0-450)
[2023-02-01 04:57] LABS: ABG PCO2 26.7 mmHg (35-45); ABG PH Result 7.44 (7.35-7.45); Arterial Blood Gas Hematocrit 29.8 % (42-52); Base Excess ABG -5.2 mmol/L (-2.0-2.0); Blood Gas Allen Test Pos; Blood Gas LPM 2.5 %; Blood Gas Operator Identificat JB; Blood Gas Sample Site Radial, right; Blood Gas Sample Type Arterial; Oxygen Device NC
--- NOTE | 2023-02-01 05:55 | PC.NURSE ---
Urine Output Patient's total urine output this shift was 125 ml. Bladder scan revealed 0 ml urine retained. Crackles still noted in anterior bilateral lungs. Dr. Herman notified; order received for 40 mg lasix IVP once. See MAR for details.
[2023-02-01] MEDS: FUROsemide 10 mg/mL SDV 4mL 40 MG IVP ×2 (06:22→09:45)
--- NOTE | 2023-02-01 07:00 | XR_ITS ---
WS: [id number] Exam: XR chest 1V portable [id number] Date/Time of Exam: 02/01/2023 6:54 AM Reason For Exam: sob Comparison 01/31/2023 at 7:34 ppm. Cardiac enlargement with pulmonary vascular congestion suggesting some degree of CHF. Right-sided ple ural effusion unchanged. There may also be some LEFT pleural effusion. There is continued atelectasis and/or infiltrate in the mid and lower RIGHT lung zone. The mediastinum is normal in contour. Right- sided PICC line ends in the RIGHT atrium unchanged in location. Bony structures are intact. IMPRESSION: 1. Cardiac enlargement with pulmonary vascular congestion suggesting some degree of CHF. There has be en minimal improvement since the last exam. 2. Moderate-sized RIGHT pleural effusion unchanged. There may also be a LEFT pleural effusion. Atelec tasis and/or infiltrate in the mid and lower RIGHT lung zone.
[2023-02-01] MEDS: divalproex DR 250 mg Tablet PO ×2 (07:58→20:26)
[2023-02-01] MEDS: midodrine 5 mg TABLET PO ×2 (07:59→20:27)
[2023-02-01] MEDS: aspirin 81 mg EC Tablet PO (07:59)
[2023-02-01] MEDS: neomycin-poly-bacitracin oint 28 gm 1 APPLIC TOPICAL (07:59)
[2023-02-01] MEDS: budesonide 0.5 mg/2 mL Neb INHALATION ×2 (08:03→19:56)
[2023-02-01] MEDS: insulin lispro 100 unit/1 mL SUBCUT ×3 (08:14→17:09)
[2023-02-01] MEDS: nystatin 100,000 unit/mL UDC 5 mL 500000 UNIT PO ×4 (08:14→20:27)
[2023-02-01] MEDS: norepinephrine 4 MG/250 ML BAG 15 MG IV (08:28)
[2023-02-01 11:42] LABS: Glucose Point of Care 174 mg/dL (70-110)
--- NOTE | 2023-02-01 14:25 | P.PN_ITS ---
Subjective Subjective: Patient was seen this morning, he is alert to person, not to place, not to time, he keeps vocalizing that he is thirsty, assessed by speech therapy, was a high aspiration risk, kept n.p.o., overnight he is on Levophed, going at 4, currently on room air, afebrile, Vitals/I&O/Wt Last Vital Signs Temp 98.9 F 02/01/23 11:45 Pulse 72 02/01/23 14:13 Resp 17 02/01/23 14:00 BP 119/68 02/01/23 14:00 Pulse Ox 96 02/01/23 14:00 O2 Del Method Room Air 02/01/23 14:00 O2 Flow Rate 2 02/01/23 08:00 01/31/23 02/01/23 02/01/23 22:59 06:59 14:59 Intake Total 329.875 / 647.025 244.622 / 891.647 142.5 / 142.5 Output Total 150 / 275 125 / 400 Balance 179.875 / 372.025 119.622 / 491.647 142.5 / 142.5 Weight last 48 hrs Weight 66.224 kg Weight 65.317 kg Weight 65.317 kg Weight 74.843 kg Physical Exam Const: COMMON NORMALS: no acute distress EXAM LIMITATIONS: altered mental status ORIENTATION/CONSCIOUSNESS: Yes awake, Yes oriented to person and Yes confused; not oriented to place and not oriented to time Eye: COMMON NORMALS: Equal, round and reactive pupils present PUPIL: Yes Equal, round and reactive pupils present Resp: COMMON NORMALS: normal respiratory effort, No retractions, No use of accessory muscles and clear to auscultation bilaterally AUSCULTATION: clear to auscultation bilaterally Cardio: COMMON NORMALS: regular rate, regular rhythm, S1 normal heart sound present and S2 normal heart sound present RATE: regular rate RHYTHM: regular rhythm HEART SOUNDS: S1 normal heart sound present and S2 normal heart sound present GI: COMMON NORMALS: Normal to inspection, nondistended, normoactive bowel sounds present and non-tender Extremity: NARRATIVE EXTREMITY EXAM: 2+ pitting edema bilateral extremity Neuro: SENSORIUM/ORIENTATION: Yes oriented to person, No oriented to place and No oriented to time Urinary Catheter Management: Hernandez: Cath Placed During This Visit: no Reason for Continuing Indwelling Catheter: Chronic Indwelling Urinary Catheter on Admission Sepsis: Is patient septic: Yes Focused sepsis exam performed: Yes Focused sepsis exam: DP PT pulses diminished bilaterally, cap refill greater than 2 seconds, Data 02/01/23 03:35 02/01/23 03:35 Micro: Microbiology 01/30/23 20:54 Urine Culture - Final Urine,Clean Catch 01/30/23 18:56 Blood Culture - Preliminary Blood NEGATIVE TO DATE 01/30/23 18:50 Blood Culture - Preliminary Blood NEGATIVE TO DATE A&P Assessment and plan (1) Acute respiratory failure: (2) Aspiration pneumonia: (3) Aspiration pneumonitis: (4) Congestive heart failure: (5) Pulmonary edema: (6) TANO (acute kidney injury): (7) Protein calorie malnutrition: (8) Physical deconditioning: (9) Muscle wasting: (10) NSTEMI (non-ST elevated myocardial infarction): (11) Elevated d-dimer: (12) Right leg DVT: (13) Pulmonary embolism: (14) Shock: (15) Acute renal failure: (16) Septic shock: Plan Acute hypoxic respiratory failure, likely multifactorial from high likelihood of pulmonary embolism, right lower extremity DVT, NSTEMI aspiration pneumonia, aspiration pneumonitis, pulm edema ? Monitor respiratory status closely, ? Continue monitoring on MedSurg, Elevated D-dimer, with respiratory failure, with elevated troponins, ? Highly suspicious for pulmonary embolism ? Cannot do CT angiogram given creatinine, ? Continue heparin drip, Right lower extremity DVT heparin drip NSTEMI ? Type II, however cannot rule out underlying cardiac etiology given age and risk factors ? Likely multifactorial from respiratory failure, right lung, DVT highly suspicious for pulmonary embolism, ? Pulm edema, aspiration pneumonia Shock ? MAP less than 65, likely outflow shock and a component of septic shock, ? Related aspiration morning, ? Related to pulmonary embolism ? Related to NSTEMI, ? PICC line ?Continue Levophed Aspiration pneumonia, aspiration pneumonitis, ? Sputum cultures, blood cultures, ? Continue Zosyn, ? Aspiration precautions, ? Keep n.p.o. for now, speech therapy eval Pulm edema, acute CHF exacerbation, type unknown ? CT of the chest, CT/CT chest wo con [id number] IMPRESSION: 1. ? Large bilateral pleural effusions 2. ? Compressive atelectasis of both lower lobes. 3. ? No acute infiltrate 4. ? Large right thyroid nodule. Consider follow-up with non urgent thyroid ultrasound of the patient's condition permits. ? fluid restrictions at 1000 cc, 1 dose of 40 mg IV push Lasix ? Based on clinical progress will consider thoracocentesis ? Monitor BMP, trend creatinine, monitor potassium ? Does have BNP over 20,000, lower extremity pitting edema, 1 dose of Lasix today Acute encephalopathy likely multifactorial from aspiration ammonia, aspiration pneumonitis, respiratory failure, underlying dementia, Physical deconditioning, protein calorie malnutrition, muscle wasting, consult dietary, speech therapy eval, Type 2 diabetes mellitus, low-dose sliding scale, TANO, creatinine 1.6, decreasing urine output, highly concerning for developing acute renal failure, with relation of sepsis ? Likely related to PE, NSTEMI, DVT, sepsis ? Continue to monitor urine output ? Patient is DNR/DNI DNR/DNI, ? Goals of care discussion with Jack Carroll, ? Agreeable to PICC line placement, agreeable to Levophed, ? Discussed goals of care patient remains DNR/DNI, ? If patient's clinical condition deteriorates, worsening respiratory failure, worsening shock, not amenable to medical intervention, agreeable to proceed with comfort care Attestations Medical Necessity Statement*: Patient requires hospitalization, for NSTEMI, septic shock, shock, pulm edema, aspiration pneumonia, PE, DVT, currently ICU, on Levophed, Coding Level of Care Code Critical Care >/= 30 minutes Critical care time (in minutes): 45 The high probability of a clinically significant, sudden or life threatening deterioration, as referenced in this documentation, required my full and direct attention, intervention and personal management. The critical care time shown is in addition to time spent performing any reported separately billable procedures and includes the following: [x] Data and vital sign review and interpretation [x ] Patient assessment, examination and intervention [x] Medication orders and management [x] Patient/Family updates as able [x] Care Coordination and Documentation. Diagnoses Acute respiratory failure J96.00 Aspiration pneumonia J69.0 Aspiration pneumonitis J69.0 Congestive heart failure I50.9 Pulmonary edema J81.1 TANO (acute kidney injury) N17.9 Protein calorie malnutrition E46 Physical deconditioning R53.81 Muscle wasting M62.50 NSTEMI (non-ST elevated myocardial infarction) I21.4 Elevated d-dimer R79.89 Right leg DVT I82.401 Pulmonary embolism I26.99 Shock R57.9 Acute renal failure N17.9 Septic shock A41.9; R65.21
[2023-02-01 16:48] LABS: Partial Thromboplastin Time 53.8 SECONDS (23.9-36.7)
[2023-02-01 17:01] LABS: Glucose Point of Care 178 mg/dL (70-110)
[2023-02-01 17:16] LABS: Glucose Point of Care 221 mg/dL (70-110)
[2023-02-02] VITALS (92 sets, daily range): BP systolic 91–152; BP diastolic 52–100; PULSE 65–119; RESP 7–31; TEMP 36.2–36.6; O2SAT 80–99
[2023-02-02] MEDS: methylPREDNISolone sod succ 40 mg/mL INJ IVP ×4 (01:09→21:05)
[2023-02-02] MEDS: piperacillin-tazobactam 3.375 GM in sodium chloride 0.9% (plus) 50 ML IV ×3 (01:10→18:43)
[2023-02-02 04:19] LABS: Basophils % 0.1 %; Eosinophils % 0.1 %; Hematocrit 27.2 % (37-53); Lymphocytes # 0.8 10^3/uL (0.8-4.8); Lymphocytes % 6.9 %; Mean Corpuscular HGB Conc 30.5 g/dL (30-55); Mean Corpuscular Hemoglobin 30.4 pg (27-33); Mean Corpuscular Volume 99.6 fl (82-101); Mean Platelet Volume 10.6 fL (7.4-10.4); Monocytes # 0.6 10^3/uL (0.2-0.9); Monocytes % 5.6 %; Neutrophils % 85.9 %; Nucleated Red Blood Cells % 0 %; Platelet Count 340 10^3/cmm (157-399); Red Blood Count 2.73 10^6/uL (3.85-5.65); Red Cell Distribution Width 16.2 % (12.1-15.1); White Blood Count 11.18 10^3/uL (3.29-11.43)
[2023-02-02 04:31] LABS: INR 1.83 (0.8-1.2)
[2023-02-02 04:40] LABS: Partial Thromboplastin Time 67.3 SECONDS (23.9-36.7)
[2023-02-02 04:41] LABS: Alanine Aminotransferase < 5 U/L (0-41); Albumin Level 2.1 g/dL (3.5-5.2); Alkaline Phosphatase 38 U/L (40-130); Anion Gap 20.8 (5-19); Aspartate Amino Transferase 7 U/L (0-40); Blood Urea Nitrogen 29 mg/dL (8-23); Calcium 6.6 mg/dL (8.5-10.5); Carbon Dioxide 19 mmol/L (22-29); Chloride 106 mmol/L (98-107); Globulin 3.4 g/dL (1.3-4.6); Glucose 170 mg/dL (65-115); Magnesium 1.7 mg/dL (1.7-2.3); Osmolality Calculated 304 mOsm/kg (285-295); Phosphorus 5.6 mg/dL (2.5-4.5); Potassium 3.8 mmol/L (3.5-5.1); Sodium 142 mmol/L (136-145); Total Bilirubin 0.2 mg/dL (0.15-1.2); Total Protein 5.5 g/dL (6.6-8.7)
[2023-02-02 04:46] LABS: Lactate (Lactic Acid level) 0.9 mmol/L (0.5-2.2)
[2023-02-02 04:48] LABS: Creatine Phosphokinase 24 U/L (39-308); NT Pro B Type Natriuretic Pept 15807 pg/mL (0-450)
[2023-02-02 07:57] LABS: Glucose Point of Care 171 mg/dL (70-110)
[2023-02-02] MEDS: budesonide 0.5 mg/2 mL Neb INHALATION ×2 (08:01→19:37)
[2023-02-02] MEDS: FUROsemide 10 mg/mL SDV 4mL 40 MG IVP (08:52)
[2023-02-02] MEDS: midodrine 5 mg TABLET PO ×3 (08:54→20:54)
[2023-02-02] MEDS: aspirin 81 mg EC Tablet PO (08:54)
[2023-02-02] MEDS: divalproex DR 250 mg Tablet PO ×2 (08:55→20:54)
[2023-02-02] MEDS: nystatin 100,000 unit/mL UDC 5 mL 500000 UNIT PO ×4 (08:55→21:15)
[2023-02-02] MEDS: insulin lispro 100 unit/1 mL SUBCUT ×3 (08:56→18:41)
[2023-02-02] MEDS: apixaban 5 mg Tablet 10 MG PO ×2 (09:05→20:54)
[2023-02-02] MEDS: neomycin-poly-bacitracin oint 28 gm 1 APPLIC TOPICAL (09:08)
--- NOTE | 2023-02-02 09:56 | FL_ITS ---
WS: [id number] Exam: FL barium swallow modifd [id number] Date/Time of Exam: 02/02/2023 9:56 AM Reason For Exam: Oral dysphagia Fluoroscopy time: 3min [id number] minutes # of spot films: Modified barium swallow was performed in conjunction with the speech therapy service. The patient ingested thin liquid, nectar consistency and pudding consistency barium foodstuffs withou t penetration or aspiration. Retention of barium mixture foodstuffs in the vallecula was noted with a ll consistencies of barium. The patient could not swallow the barium tablet. IMPRESSION: 1. No sign of aspiration or penetration. 2. Retention of the barium mixture foodstuffs in the vallecula as indicated above. 3. The patient could not swallow the barium tablet. A separate report of findings and recommendations will follow from the speech therapy service.
--- NOTE | 2023-02-02 10:05 | PC.SOCIAL ---
IMM Update Pt is not expected to d/c in the next 24-48hrs. Provided pt a copy. Initialed, dated, & timed copy in chart.
[2023-02-02 10:33] LABS: Ferritin 250 ng/mL (30-400)
[2023-02-02] MEDS: albumin 25 G/100 ML BAG 60 G IV ×3 (10:33→23:45)
[2023-02-02] MEDS: pantoprazole 40 mg SDV IVP ×2 (10:35→21:02)
--- NOTE | 2023-02-02 10:48 | PC.NURSE ---
Patient is currently on a moderatly thick diet. Before starting breakfast nurse completed a bedside swallow evaluation and patient passed bedside eval. NUrse fed patient moderately thickened liquids, and though patient did not appear to gag and did not cough at all, but about a [address] though breakfast patient's lung sounds have started to sound very wet/crackles. Nurse believes patient may be aspirating, but it is not easily noticeable due to weak gag reflex. Nurse alerted Dr augustin, orderd to make NPO and ordered Barium swallow.
[2023-02-02 11:04] LABS: Ionized Calcium 0.9 mmol/L (1.1-1.4)
[2023-02-02 12:36] LABS: Glucose Point of Care 166 mg/dL (70-110)
--- NOTE | 2023-02-02 14:42 | PM.PN ---
Subjective Subjective: patient was seen this morning he is alert to person, not place, not time, no fever, off levophed, has had 500cc urine output, has bilateral lower extermity edema a 2+, diffuse crackles in all lung field Vitals/I&O/Wt Last Vital Signs Temp 97.4 F L 02/02/23 08:09 Pulse 74 02/02/23 14:00 Resp 26 H 02/02/23 11:30 BP 142/80 02/02/23 11:30 Pulse Ox 95 02/02/23 11:30 O2 Del Method Room Air 02/02/23 08:02 O2 Flow Rate 2 02/01/23 08:00 02/01/23 02/02/23 02/02/23 22:59 06:59 14:59 Intake Total 915.117 / 1057.617 92.125 / 1149.742 100 / 100 Output Total 250 / 250 250 / 500 Balance 665.117 / 807.617 -157.875 / 649.742 100 / 100 Weight last 48 hrs Weight 69.853 kg Weight 66.224 kg Physical Exam Const: COMMON NORMALS: no acute distress OTHER: muscle wasting, bilateral arms, shoulder, thighs, calves Resp: COMMON NORMALS: normal respiratory effort, No retractions and No use of accessory muscles AUSCULTATION: crackles Cardio: COMMON NORMALS: regular rate, regular rhythm, S1 normal heart sound present and S2 normal heart sound present RATE: regular rate RHYTHM: regular rhythm HEART SOUNDS: S1 normal heart sound present and S2 normal heart sound present GI: COMMON NORMALS: Normal to inspection, nondistended, normoactive bowel sounds present and non-tender Extremity: NARRATIVE EXTREMITY EXAM: 2+pitting edema Urinary Catheter Management: Hernandez: Cath Placed During This Visit: no Reason for Continuing Indwelling Catheter: Accurate Measurement of Urinary Output in Critically Ill Patients Data 02/02/23 03:50 02/02/23 03:50 Micro: Microbiology 01/30/23 20:54 Urine Culture - Final Urine,Clean Catch A&P Assessment and plan (1) Acute respiratory failure: (2) Aspiration pneumonia: (3) Aspiration pneumonitis: (4) Congestive heart failure: (5) Pulmonary edema: (6) TANO (acute kidney injury): (7) Protein calorie malnutrition: (8) Physical deconditioning: (9) Muscle wasting: (10) NSTEMI (non-ST elevated myocardial infarction): (11) Elevated d-dimer: (12) Right leg DVT: (13) Pulmonary embolism: (14) Shock: (15) Acute renal failure: (16) Septic shock: (17) Pressure-induced deep tissue damage of sacral region: Plan Acute hypoxic respiratory failure, likely multifactorial from high likelihood of pulmonary embolism, right lower extremity DVT, NSTEMI aspiration pneumonia, aspiration pneumonitis, pulm edema ? Monitor respiratory status closely, ? Continue monitoring on MedSurg, Elevated D-dimer, with respiratory failure, with elevated troponins, ? Highly suspicious for pulmonary embolism ? Cannot do CT angiogram given creatinine, ? transitiuon to eliquis Right lower extremity DVT , eliquis NSTEMI ? Type II, however cannot rule out underlying cardiac etiology given age and risk factors ? Likely multifactorial from respiratory failure, right lung, DVT highly suspicious for pulmonary embolism, ? Pulm edema, aspiration pneumonia Shock, resolved ? MAP less than 65, likely outflow shock and a component of septic shock, ? Related aspiration morning, ? Related to pulmonary embolism ? Related to NSTEMI, ? PICC line ?off Levophed Aspiration pneumonia, aspiration pneumonitis, ? Sputum cultures, blood cultures, ? Continue Zosyn, ? Aspiration precautions, ? Keep n.p.o. for now, speech therapy evvinnie, DAMIÁN today Pulm edema, acute CHF exacerbation, type unknown ? CT of the chest, CT/CT chest wo con [id number] IMPRESSION: 1. ? Large bilateral pleural effusions 2. ? Compressive atelectasis of both lower lobes. 3. ? No acute infiltrate 4. ? Large right thyroid nodule. Consider follow-up with non urgent thyroid ultrasound of the patient's condition permits. ? fluid restrictions at 1000 cc, 1 dose of 40 mg IV push Lasix ? Based on clinical progress will consider thoracocentesis ? Monitor BMP, trend creatinine, monitor potassium ? Does have BNP over 20,000, lower extremity pitting edema, 1 dose of Lasix today Acute encephalopathy likely multifactorial from aspiration ammonia, aspiration pneumonitis, respiratory failure, underlying dementia, Physical deconditioning, protein calorie malnutrition, muscle wasting, consult dietary, speech therapy eval, Type 2 diabetes mellitus, low-dose sliding scale, TANO, creatinine 1.7, decreasing urine output, highly concerning for developing acute renal failure, with relation of sepsis ? Likely related to PE, NSTEMI, DVT, sepsis ? Continue to monitor urine output ? Patient is DNR/DNI Sacral DTI DNR/DNI, ? Goals of care discussion with Jack Carroll, ? Agreeable to PICC line placement, agreeable to Levophed, ? Discussed goals of care patient remains DNR/DNI, ? If patient's clinical condition deteriorates, worsening respiratory failure, worsening shock, not amenable to medical intervention, agreeable to proceed with comfort care Attestations Medical Necessity Statement*: patient requires hsopitalization for fluid overload, nstemi, aspiration pna, shock, pe, dvt Diagnoses Acute respiratory failure J96.00 Aspiration pneumonia J69.0 Aspiration pneumonitis J69.0 Congestive heart failure I50.9 Pulmonary edema J81.1 TANO (acute kidney injury) N17.9 Protein calorie malnutrition E46 Physical deconditioning R53.81 Muscle wasting M62.50 NSTEMI (non-ST elevated myocardial infarction) I21.4 Elevated d-dimer R79.89 Right leg DVT I82.401 Pulmonary embolism I26.99 Shock R57.9 Acute renal failure N17.9 Septic shock A41.9; R65.21 Pressure-induced deep tissue damage of sacral region L89.156
[2023-02-02] MEDS: sucralfate 1 gm/10 mL Oral Liq UDC PO ×2 (16:29→21:01)
[2023-02-02 17:05] LABS: Glucose Point of Care 156 mg/dL (70-110)
--- NOTE | 2023-02-02 18:29 | PC.NURSE ---
SHift SUmmary: Uneventful shift. Patient was up to a chair for about 5 hours today (nurse transferred to chair using slide board). DUe to aspiration concerns he was taken for a barium swallow, results in reports and diet modified accordingly. Mental status is unchanged, oriented to self only. Breaths sounds have been variable throughout the day, occasionally clear, but mostly coarse crackles. FLuid restriction has been met and will restart at midnight. Total urine output: 225mL
[2023-02-02] MEDS: ipratropium-albuterol 3 mL Neb INHALATION (19:37)
[2023-02-02] MEDS: morphine 4 mg/mL SDV 1 mL 2 MG IVP (20:55)
[2023-02-02 21:16] LABS: Glucose Point of Care 175 mg/dL (70-110)
[2023-02-03] VITALS (26 sets, daily range): BP systolic 112–134; BP diastolic 58–93; PULSE 67–107; RESP 10–19; TEMP 36.1–36.6; O2SAT 95–99
[2023-02-03] MEDS: piperacillin-tazobactam 3.375 GM in sodium chloride 0.9% (plus) 50 ML IV (02:42)
[2023-02-03 05:12] LABS: Basophils % 0.1 %; Hematocrit 25.2 % (37-53); Lymphocytes # 0.7 10^3/uL (0.8-4.8); Lymphocytes % 6.5 %; Mean Corpuscular HGB Conc 29.8 g/dL (30-55); Mean Corpuscular Hemoglobin 29.6 pg (27-33); Mean Corpuscular Volume 99.6 fl (82-101); Mean Platelet Volume 10.5 fL (7.4-10.4); Monocytes # 0.7 10^3/uL (0.2-0.9); Monocytes % 6.6 %; Neutrophils # 8.78 10^3/uL (1.8-7.7); Neutrophils % 85.4 %; Nucleated Red Blood Cells % 0 %; Platelet Count 270 10^3/cmm (157-399); Red Blood Count 2.53 10^6/uL (3.85-5.65); White Blood Count 10.28 10^3/uL (3.29-11.43)
[2023-02-03 05:22] LABS: INR 3.62 (0.8-1.2)
--- NOTE | 2023-02-03 05:22 | PC.NURSE ---
Decrease Lantus dose: Order from Dr. Herman to decrease subq Lantus from 48 to 36units.
[2023-02-03 05:37] LABS: Alanine Aminotransferase < 5 U/L (0-41); Albumin Level 3.1 g/dL (3.5-5.2); Alkaline Phosphatase 27 U/L (40-130); Anion Gap 22.6 (5-19); Aspartate Amino Transferase 6 U/L (0-40); Blood Urea Nitrogen 35 mg/dL (8-23); C Reactive Protein 18.8 mg/L (0.0-4.9); Carbon Dioxide 19 mmol/L (22-29); Chloride 106 mmol/L (98-107); Globulin 2.1 g/dL (1.3-4.6); Glucose 184 mg/dL (65-115); Magnesium 1.7 mg/dL (1.7-2.3); Osmolality Calculated 311 mOsm/kg (285-295); Phosphorus 6.1 mg/dL (2.5-4.5); Potassium 3.6 mmol/L (3.5-5.1); Sodium 144 mmol/L (136-145); Total Bilirubin 0.3 mg/dL (0.15-1.2); Total Protein 5.2 g/dL (6.6-8.7)
[2023-02-03 05:39] LABS: Creatine Phosphokinase 18 U/L (39-308); NT Pro B Type Natriuretic Pept 21261 pg/mL (0-450)
[2023-02-03] MEDS: sucralfate 1 gm/10 mL Oral Liq UDC PO (06:06)
[2023-02-03] MEDS: albumin 25 G/100 ML BAG 60 G IV (06:07)
[2023-02-03 08:46] LABS: Glucose Point of Care 170 mg/dL (70-110)
[2023-02-03] MEDS: ipratropium-albuterol 3 mL Neb INHALATION (08:53)
[2023-02-03] MEDS: budesonide 0.5 mg/2 mL Neb INHALATION (08:53)
[2023-02-03] MEDS: midodrine 5 mg TABLET PO (08:55)
[2023-02-03] MEDS: aspirin 81 mg EC Tablet PO (08:55)
[2023-02-03] MEDS: divalproex DR 250 mg Tablet PO (08:55)
[2023-02-03] MEDS: nystatin 100,000 unit/mL UDC 5 mL 500000 UNIT PO (08:55)
[2023-02-03] MEDS: calcium carbonate 500 mg Chew Tablet 1000 MG PO (08:55)
[2023-02-03] MEDS: magnesium lactate 84 mg Tablet PO (08:55)
[2023-02-03] MEDS: insulin lispro 100 unit/1 mL SUBCUT (08:56)
--- NOTE | 2023-02-03 10:20 | P.PN_ITS ---
Subjective Subjective: - Patient was seen this morning, he is alert to person, not to place, not to time, does not follow commands, all he tells me is that he wants to eat, he tells me let me eat, ?, His INR is 3.62, hemoglobin 7.5, concerns for slow GI bleed given that he is on Eliquis, will have to consider giving him a unit of blood holding Eliquis ? Patient would likely require either IVC filter placement, or further trials of anticoagulant therapy, to see if he can tolerate anticoagulation with his DVT likely PE, and his anemia, and his elevated INR, ? Patient's TANO persists, creatinine is 1.8, urine output was lackluster overnight at 200 cc, developing fluid overload, ? Has diffuse anasarca with bilateral lower extremity 2+ pitting edema, ? On respiratory examination has diffuse crackles in all lung gustafson, crackles in upper airways, ? Reviewed his modified barium swallow, he does have retention of barium mixture of foodstuff in the vallecula, nursing staff observed that he holds onto food objects in his mouth, and after that, likely aspirates, as he starts to wheeze, ? I have also observed this, he does have a lot of upper airway wheezing, hold onto food boluses, food liquids, likely aspirated some eventually need to his airways, ? Also component of his respiratory status is pulm edema, ? In my opinion, patient will at some point need dialysis, to help with his fluid overload as his urine output is lackluster he is worsening renal function, he is can require blood, he is also likely going to require a feeding tube, to help with his nutritional status, he has a sacral DTI, he has pneumonia as can require prolonged antibiotic therapy ? Given his dementia and his bedbound status, his diminished quality of living, he is DNR/DNI, discussed goals of care with Jack Carroll, ? I had a detailed discussion with Jack Carroll given his complex issue as above, he is off pressors, he is normotensive, he is on room air, he is afebrile, however the complications as above are difficult to manage without being aggressive in his management, and in my opinion, if we want to do everything for him he is flo at some point require a feeding tube placement for adequate nutrition given his sacral DTI my concerns for recurrent aspiration, he is going to need dialysis for his fluid overload, he is going to need blood potential IVC filter placement, however I do not think that this is in line with his wishes, and his diminished quality of living and quality of life, all fabiola has reported to me throughout his hospitalization is that he is either hungry, to let him eat, that is all he is told me throughout his hospitalization was to let him eat, that he is hungry, so my opinion putting in a feeding tube and some to getting him to a n.p.o. status, does not align with what he is telling me, he d oes have severe dementia, he cannot come to informed decisions, so I again gone over the details with Jack Carroll patient's healthcare power of personal injury attorney, guardian of the state ? After discussing the risk and benefits all options including continued medical therapy versus hospice, voiced understanding, all questions answered, after shared decision making, Jack Carroll has agreed to hospice, [facility] easing his pain easing suffering allowing him to be comfortable allowing him to eat, stopping medications associate with complications, likely I am going to stop his anticoagulation on discharge although he has DVTs developing severe anemia hemoglobin 7.5, concerning for possible slow GI bleed, will stop nephrotoxic agents, given his TANO, he is deve loping fluid overload so and pulm edema, and he is at times struggling to breathe will discharge home on hospice orders as per hospice facility, discussed risks and benefits, Jack Hardinguitt agreed, all questions answered Vitals/I&O/Wt Last Vital Signs Temp 97.9 F 02/03/23 06:00 Pulse 99 02/03/23 08:57 Resp 18 02/03/23 08:40 BP 119/65 02/03/23 06:00 Pulse Ox 99 02/03/23 08:40 O2 Del Method Room Air 02/03/23 08:40 O2 Flow Rate 2 02/01/23 08:00 02/02/23 02/03/23 02/03/23 22:59 06:59 14:59 Intake Total 935.633 / 1035.633 330.00 / 1365.633 Output Total 75 / 225 250 / 475 Balance 860.633 / 810.633 80.00 / 890.633 Weight last 48 hrs Weight 66.996 kg Weight 69.853 kg Physical Exam Const: COMMON NORMALS: no acute distress EXAM LIMITATIONS: altered mental status ORIENTATION/CONSCIOUSNESS: Yes awake and Yes confused; not oriented to person, not oriented to place and not oriented to time Resp: COMMON NORMALS: normal respiratory effort, No retractions and No use of accessory muscles AUSCULTATION: crackles and rales Cardio: COMMON NORMALS: regular rate, regular rhythm, S1 normal heart sound present and S2 normal heart sound present RATE: regular rate RHYTHM: regular rhythm HEART SOUNDS: S1 normal heart sound present and S2 normal heart sound present GI: COMMON NORMALS: Normal to inspection, nondistended, normoactive bowel sounds present and non-tender Extremity: NARRATIVE EXTREMITY EXAM: diffuse anasarca, 2+ pitting edema bilateral extremity Neuro: SENSORIUM/ORIENTATION: No oriented to person, No oriented to place and No oriented to time Urinary Catheter Management: Hernandez: Cath Placed During This Visit: no Reason for Continuing Indwelling Catheter: Accurate Measurement of Urinary Output in Critically Ill Patients Data 02/03/23 04:40 02/03/23 04:40 A&P Assessment and plan (1) Acute respiratory failure: (2) Aspiration pneumonia: (3) Aspiration pneumonitis: (4) Congestive heart failure: (5) Pulmonary edema: (6) TANO (acute kidney injury): (7) Protein calorie malnutrition: (8) Physical deconditioning: (9) Muscle wasting: (10) NSTEMI (non-ST elevated myocardial infarction): (11) Elevated d-dimer: (12) Right leg DVT: (13) Pulmonary embolism: (14) Shock: (15) Acute renal failure: (16) Septic shock: (17) Pressure-induced deep tissue damage of sacral region: (18) Encounter for hospice care: Plan [facility] Acute hypoxic respiratory failure, likely multifactorial from high likelihood of pulmonary embolism, right lower extremity DVT, NSTEMI aspiration pneumonia, aspiration pneumonitis, pulm edema ? Monitor respiratory status closely, ? Continue monitoring on MedSurg, Elevated D-dimer, with respiratory failure, with elevated troponins, ? Highly suspicious for pulmonary embolism ? Cannot do CT angiogram given creatinine, ? transitiuon to eliquis Right lower extremity DVT , eliquis NSTEMI ? Type II, however cannot rule out underlying cardiac etiology given age and risk factors ? Likely multifactorial from respiratory failure, right lung, DVT highly suspicious for pulmonary embolism, ? Pulm edema, aspiration pneumonia Shock, resolved ? MAP less than 65, likely outflow shock and a component of septic shock, ? Related aspiration morning, ? Related to pulmonary embolism ? Related to NSTEMI, ? PICC line ?off Levophed Aspiration pneumonia, aspiration pneumonitis, ? Sputum cultures, blood cultures, ? Continue Zosyn, ? Aspiration precautions, ? Keep n.p.o. for now, speech therapy evvinnie, MBS today Pulm edema, acute CHF exacerbation, type unknown ? CT of the chest, CT/CT chest wo con [id number] IMPRESSION: 1. ? Large bilateral pleural effusions 2. ? Compressive atelectasis of both lower lobes. 3. ? No acute infiltrate 4. ? Large right thyroid nodule. Consider follow-up with non urgent thyroid ultrasound of the patient's condition permits. ? fluid restrictions at 1000 cc, 1 dose of 40 mg IV push Lasix ? Based on clinical progress will consider thoracocentesis ? Monitor BMP, trend creatinine, monitor potassium ? Does have BNP over 20,000, lower extremity pitting edema, 1 dose of Lasix today Acute encephalopathy likely multifactorial from aspiration ammonia, aspiration pneumonitis, respiratory failure, underlying dementia, Physical deconditioning, protein calorie malnutrition, muscle wasting, consult dietary, speech therapy eval, Type 2 diabetes mellitus, low-dose sliding scale, TANO, creatinine 1.7, decreasing urine output, highly concerning for developing acute renal failure, with relation of sepsis ? Likely related to PE, NSTEMI, DVT, sepsis ? Continue to monitor urine output ? Patient is DNR/DNI Sacral DTI DNR/DNI, ? Goals of care discussion with Jack Carroll, ? Agreeable to PICC line placement, agreeable to Levophed, ? Discussed goals of care patient remains DNR/DNI, ? If patient's clinical condition deteriorates, worsening respiratory failure, worsening shock, not amenable to medical intervention, agreeable to proceed with comfort care Attestations Medical Necessity Statement*: will discharge to SNF on hospice Diagnoses Acute respiratory failure J96.00 Aspiration pneumonia J69.0 Aspiration pneumonitis J69.0 Congestive heart failure I50.9 Pulmonary edema J81.1 TANO (acute kidney injury) N17.9 Protein calorie malnutrition E46 Physical deconditioning R53.81 Muscle wasting M62.50 NSTEMI (non-ST elevated myocardial infarction) I21.4 Elevated d-dimer R79.89 Right leg DVT I82.401 Pulmonary embolism I26.99 Shock R57.9 Acute renal failure N17.9 Septic shock A41.9; R65.21 Pressure-induced deep tissue damage of sacral region L89.156 Encounter for hospice care Z51.5
--- NOTE | 2023-02-03 10:29 | P.DS_ITS ---
Discharge Providers Date of Admission: 01/30/23 17:38 Date of Discharge: February 03, 2023 Attending Provider at Admission: Joseph Ambrosio MD Attending Provider at Discharge: Joseph Ambrosio MD Primary Care Provider: Jack Purcell DO Diagnoses at Discharge Discharge Diagnosis (1) Acute respiratory failure: Status: Acute (2) Aspiration pneumonia: Status: Acute (3) Aspiration pneumonitis: Status: Acute (4) Congestive heart failure: Status: Acute (5) Pulmonary edema: Status: Acute (6) TANO (acute kidney injury): Status: Acute (7) Protein calorie malnutrition: Status: Acute (8) Physical deconditioning: Status: Acute (9) Muscle wasting: Status: Acute (10) NSTEMI (non-ST elevated myocardial infarction): Status: Acute (11) Elevated d-dimer: Status: Acute (12) Right leg DVT: Status: Acute (13) Pulmonary embolism: Status: Acute (14) Shock: Status: Acute (15) Acute renal failure: Status: Acute (16) Septic shock: Status: Acute (17) Pressure-induced deep tissue damage of sacral region: Status: Acute (18) Encounter for hospice care: Status: Acute Reason for Visit Reason for Visit: SOB Hospital Course Hospital Course Shaun Beltran is a 82 year old male with a past medical history of chronic schizophrenia, awarded guardianship of the state, DNR/DNI, history of COVID, type 2 diabetes mellitus, recent hospital discharge for aspiration pneumonia who presents to [facility] due to shortness of breath, wheezing, crackles on exam, hypoxia.? Currently patient is alert to person, not to place, not to time, he tells me he is not feeling well, that is all I can get from him, according to ER physician, he was sent from [facility], for hypoxia, no vomiting episodes, currently is on room air, O2 sats in the mid 90s, normotensive, afebrile, has wheezing and crackles on examination, Patient was admitted to [facility] for acute hypoxic respiratory failure likely secondary to high likelihood of pulm embolism, right lower extremity VTE, aspiration pneumonia, aspiration pneumonitis, pulm edema, NSTEMI, with shock, with acute encephalopathy, with sacral DTI, with TANO,. Patient received IV antibiotics, diuretic therapy, anticoagulant therapy, seen by speech therapy, clinically monitored. Patient developed complications of worsening TANO, decreasing urine output, worsening anasarca, pulm edema, worse in respiratory status, fluid overload, recurrent aspiration pneumonia, aspiration pneumonitis, developing anemia. After discussing goals of care with patient's healthcare power of commonwealth attorney, Jack Farias, decision was made to pursue hospice, and patient will be discharged to [facility] on hospice. Physical Exam Const: COMMON NORMALS: no acute distress EXAM LIMITATIONS: altered mental status ORIENTATION/CONSCIOUSNESS: Yes awake and Yes confused; not oriented to person, not oriented to place and not oriented to time Resp: COMMON NORMALS: normal respiratory effort and No retractions AUSCULTATION: wheezes Cardio: COMMON NORMALS: regular rate, regular rhythm, S1 normal heart sound present and S2 normal heart sound present RATE: regular rate RHYTHM: regular rhythm HEART SOUNDS: S1 normal heart sound present and S2 normal heart sound present GI: COMMON NORMALS: Normal to inspection, nondistended, normoactive bowel sounds present and non-tender Neuro: SENSORIUM/ORIENTATION: No oriented to person, No oriented to place and No oriented to time Urinary Catheter Management: Hernandez: Cath Placed During This Visit: no Reason for Continuing Indwelling Catheter: Accurate Measurement of Urinary Output in Critically Ill Patients Discharge Data Studies Completed and Pending Completed Studies During Hospitalization Category Date Time Status CT chest wo con [id number] Stat Cat Scan 01/30/23 17:53 Completed Modified barium swallow [FL barium swallow modifd [id number] Exams 02/02/23 09:56 Completed ] Routine XR chest 1V portable [id number] Routine Exams 02/01/23 07:00 Completed XR chest 1V portable [id number] Stat Exams 01/30/23 16:39 Completed XR chest 1V portable [id number] Stat Exams 01/31/23 18:24 [place] [id number] Routine Ultrasound 01/31/23 22:29 Completed Pending at discharge Category Date Time Status Blood Culture Routine Lab 01/30/23 18:56 Results Leukocyte Reduced RBC Stat Lab 02/03/23 09:20 Results Occult Blood Stool [Immunochemical Fecal OCB] Routine Lab 02/02/23 09:57 Uncollected Occult Blood Stool [Immunochemical Fecal OCB] Stat Lab 02/03/23 08:29 Uncollected Sputum Culture and Gram Stain Stat Lab 01/30/23 17:53 Uncollected Type and Screen Stat Lab 02/03/23 09:20 Results Radiology Impressions Chest CT 01/30/23 17:53 IMPRESSION: 1. Large bilateral pleural effusions 2. Compressive atelectasis of both lower lobes. 3. No acute infiltrate 4. Large right thyroid nodule. Consider follow-up with non urgent thyroid ultrasound of the patient's condition permits. COMMENTS: Consistent with the [employer] [place] [employer]'s Incidental Findings Committee white paper (J Am Elena Radiol 2015): In patients aged 35 years and older with an incidental thyroid nodule equal to or greater than 1.[address], MRI or extrathyroidal US, further evaluation with dedicated thyroid US is recommended for patients with normal life expectancy and without comorbidities. For smaller nodules without suspicious features, no further evaluation or follow up is recommended. Laboratory Results WBC 10.28 10^3/uL (3.29-11.43) 02/03/23 04:40 RBC 2.53 10^6/uL (3.85-5.65) L 02/03/23 04:40 Hgb 7.50 g/dL (11.27-16.99) L 02/03/23 04:40 Hct 25.2 % (37-53) L 02/03/23 04:40 MCV 99.6 fl (82-101) 02/03/23 04:40 MCH 29.6 pg (27-33) 02/03/23 04:40 MCHC 29.8 g/dL (30-55) L 02/03/23 04:40 RDW 16.0 % (12.1-15.1) H 02/03/23 04:40 Plt Count 270 10^3/cmm (157-399) 02/03/23 04:40 MPV 10.5 fL (7.4-10.4) H 02/03/23 04:40 Neut % (Auto) 85.4 % 02/03/23 04:40 Lymph % (Auto) 6.5 % 02/03/23 04:40 Rhea % (Auto) 6.6 % 02/03/23 04:40 Eos % (Auto) 0.0 % 02/03/23 04:40 Baso % (Auto) 0.1 % 02/03/23 04:40 Neut # (Auto) 8.78 10^3/uL (1.8-7.7) H 02/03/23 04:40 Lymph # (Auto) 0.7 10^3/uL (0.8-4.8) L 02/03/23 04:40 Rhea # (Auto) 0.7 10^3/uL (0.2-0.9) 02/03/23 04:40 Eos # (Auto) 0.0 10^3/uL (0.0-0.8) 02/03/23 04:40 Baso # (Auto) 0.0 10^3/uL (0.0-0.1) 02/03/23 04:40 Nucleated RBC % (auto) 0 % 02/03/23 04:40 Nucleated RBCs # 0.0 /100WBC 02/03/23 04:40 PT 37.50 SECONDS (12.1-14.9) H D 02/03/23 04:40 INR 3.62 (0.8-1.2) H 02/03/23 04:40 APTT 67.3 SECONDS (23.9-36.7) H 02/02/23 03:50 Specimen Type Arterial 02/01/23 04:43 Sample Site Radial, right 02/01/23 04:43 ABG pH 7.44 (7.35-7.45) 02/01/23 04:43 ABG pCO2 26.7 mmHg (35-45) L 02/01/23 04:43 ABG pO2 144.0 mmHg (80.0-100.0) H 02/01/23 04:43 ABG HCO3 18.0 mmol/L (22-26) L 02/01/23 04:43 ABG Base Excess -5.2 mmol/L (-2.0-2.0) L 02/01/23 04:43 Sachin Test Pos 02/01/23 04:43 Hematocrit 29.8 % (42-52) L 02/01/23 04:43 O2 Delivery Device Nc 02/01/23 04:43 O2 Liters/Min 2.5 % 02/01/23 04:43 Medical Receptionist Assistant ID Pedro 02/01/23 04:43 Sodium 144 mmol/L (136-145) 02/03/23 04:40 Potassium 3.6 mmol/L (3.5-5.1) 02/03/23 04:40 Chloride 106 mmol/L (98-107) 02/03/23 04:40 Carbon Dioxide 19 mmol/L (22-29) L 02/03/23 04:40 Anion Gap 22.6 (5-19) H 02/03/23 04:40 BUN 35 mg/dL (8-23) H 02/03/23 04:40 Creatinine 1.8 mg/dL (0.7-1.2) H 02/03/23 04:40 GFR Calculation Not Reportable 02/03/23 04:40 Glucose 184 mg/dL (65-115) H 02/03/23 04:40 POC Glucose 170 mg/dL (70-110) H 02/03/23 08:30 Calculated Osmolality 311 mOsm/kg (285-295) H 02/03/23 04:40 Lactic Acid 1.9 mmol/L (0.5-2.2) 01/30/23 18:50 Lactate 1.0 mmol/L (0.5-2.2) 02/03/23 04:40 Calcium 7.0 mg/dL (8.5-10.5) L 02/03/23 04:40 Ionized Calcium Tomas 0.9 mmol/L (1.1-1.4) L 02/02/23 11:00 Phosphorus 6.1 mg/dL (2.5-4.5) H 02/03/23 04:40 Magnesium 1.7 mg/dL (1.7-2.3) 02/03/23 04:40 Ferritin 250 ng/mL (30-400) 02/02/23 03:50 Total Bilirubin 0.3 mg/dL (0.15-1.2) 02/03/23 04:40 AST 6 U/L (0-40) 02/03/23 04:40 ALT < 5 U/L (0-41) 02/03/23 04:40 Alkaline Phosphatase 27 U/L (40-130) L 02/03/23 04:40 Creatine Kinase 18 U/L (39-308) L 02/03/23 04:40 Troponin T Baseline 235 ng/L (0-15) H* 01/30/23 16:50 Troponin T 120 Minute 243.3 ng/L (0-15) H 01/30/23 18:50 Delta Troponin T 8.3 ABS# (0-10) 01/30/23 18:50 Troponin T Hi Sens 6Hr 255.9 ng/L (0-15) H 01/30/23 22:55 Troponin T Hi Sens 6Hr Delta 20.9 ng/L (0-12) H* 01/30/23 22:55 C-Reactive Protein 18.8 mg/L (0.0-4.9) H 02/03/23 04:40 NT-Pro-B Natriuret Pep 58135 pg/mL (0-450) H 02/03/23 04:40 Total Protein 5.2 g/dL (6.6-8.7) L 02/03/23 04:40 Albumin 3.1 g/dL (3.5-5.2) L 02/03/23 04:40 Globulin 2.1 g/dL (1.3-4.6) 02/03/23 04:40 Procalcitonin 0.19 ng/mL (0-0.5) 01/30/23 16:50 TSH 2.23 uIU/mL (0.27-4.20) 01/30/23 16:50 Urine Color Colorless (Yellow) 01/30/23 20:54 Urine Appearance Clear (CLEAR) 01/30/23 20:54 Urine pH 5 (5-7) 01/30/23 20:54 Ur Specific [place] 1.000 (1.005-1.030) L 01/30/23 20:54 Urine Protein Trace (Negative) 01/30/23 20:54 Urine Glucose (UA) Norm (Normal) 01/30/23 20:54 Urine Ketones 1+ (Negative) H 01/30/23 20:54 Urine Blood 3+ (Negative) H 01/30/23 20:54 Urine Nitrate Negative (Negative) 01/30/23 20:54 Urine Bilirubin Neg (Negative) 01/30/23 20:54 Urine Urobilinogen Neg mg/dL (Negative) 01/30/23 20:54 Ur Leukocyte Esterase Negative (Negative) 01/30/23 20:54 Urine RBC 10-15 /hpf (0-2) H 01/30/23 20:54 Urine WBC Rare /hpf (0-5) 01/30/23 20:54 Ur Squamous Epith Cells 0-4 /hpf (0-5) H 01/30/23 20:54 Amorphous Sediment 1+ /hpf 01/30/23 20:54 Urine Bacteria None /hpf (NONE) 01/30/23 20:54 Nasal Influ A H1 2009 PCR Not detected (NOT DETECT) 01/30/23 20:56 Adenovirus (PCR) Not detected (NOT DETECT) 01/30/23 20:56 C. pneumoniae DNA (PCR) Not detected (NOT DETECT) 01/30/23 20:56 Coronavirus 229E (PCR) Not detected (NOT DETECT) 01/30/23 20:56 Human Metapneumovir PCR Not detected (NOT DETECT) 01/30/23 20:56 Influenza A (H1) PCR Not detected (NOT DETECT) 01/30/23 20:56 Influenza A (H3) PCR Not detected (NOT DETECT) 01/30/23 20:56 Influenza Type A (PCR) Not detected (NOT DETECT) 01/30/23 20:56 Influenza Type B (PCR) Not detected (NOT DETECT) 01/30/23 20:56 M. pneumoniae (PCR) Not detected (NOT DETECT) 01/30/23 20:56 Parainfluenza 1 (PCR) Not detected (NOT DETECT) 01/30/23 20:56 Parainfluenza 2 (PCR) Not detected (NOT DETECT) 01/30/23 20:56 Parainfluenza 3 (PCR) Not detected (NOT DETECT) 01/30/23 20:56 Parainfluenza 4 (PCR) Not detected (NOT DETECT) 01/30/23 20:56 RSV Type A (PCR) Not detected (NOT DETECT) 01/30/23 20:56 RSV Type B (PCR) Not detected (NOT DETECT) 01/30/23 20:56 Entero/Rhino (PCR) Not detected (NOT DETECT) 01/30/23 20:56 SARS-CoV-2 (PCR) Not detected (NOT DETECT) 01/30/23 20:56 Blood Type A Positive 02/03/23 09:20 Rho(D) Type Rh positive 02/03/23 09:20 Antibody Screen Negative 02/03/23 09:20 Crossmatch See Detail 02/03/23 09:20 Vitals Last Vital Signs Temp 97.9 F 02/03/23 06:00 Pulse 99 02/03/23 08:57 Resp 18 02/03/23 08:40 BP 119/65 02/03/23 06:00 Pulse Ox 99 02/03/23 08:40 O2 Del Method Room Air 02/03/23 08:40 O2 Flow Rate 2 02/01/23 08:00 Discharge Plan Discharge Condition: Stable Prescriptions: Continued sennosides-docusate sodium [Senna Plus] 8.6-50 mg Tablet 1 tab PO BID@08,20 magnesium hydroxide [Milk of Magnesia] 400 mg/5 mL Suspension 30 ml PO DAILY PRN (Reason: Constipation) bisacodyl 10 mg Suppository 10 mg PA DAILY PRN (Reason: Constipation) Enema Disposable 19-7 gram/118 mL Enema 118 ml PA DAILY PRN (Reason: Constipation) terbinafine HCl [Lamisil AT] 1 % Cream 1 applic TOPICAL BID Rx Instructions: apply to back until completely clear nystatin 100,000 unit/mL suspension 5 ml PO QID Rx Instructions: swish ans swallow albuterol sulfate 2.5 mg /3 mL (0.083 %) solution for nebulization 2.5 mg inhalation Q6H PRN (Reason: Shortness Of Breath) divalproex 250 mg tablet,delayed release (DR/EC) 250 mg PO BID@08,20 olanzapine 2.5 mg tablet 2.5 mg PO DAILY@08 acetaminophen 650 mg Tablet Extended Release 650 mg PO Q6H PRN (Reason: Pain) pantoprazole 40 mg tablet,delayed release (DR/EC) 40 mg PO DAILY@08 Risperdal Consta 50 mg/2 mL suspension,extended rel recon 50 mg IM Q14D triamcinolone acetonide 0.1 % cream See Rx Instructions .ROUTE .COMPLEX Rx Instructions: apply to bilateral lower legs topically every day and evening shift for scaly skin with open wounds noted amoxicillin-pot clavulanate 875-125 mg tablet 1 tab PO BID 5 Days Qty: 10 0RF Discontinued lisinopril 2.5 mg Tablet 2.5 mg PO DAILY@08 hydrocodone-acetaminophen 5-325 mg tablet 1 tab PO Q6H MDD 3 tabs PRN (Reason: Pain) metformin 1,000 mg tablet 1,000 mg PO BID@08,20 Discharge Orders: Discharge Order (Routine); Ordered 02/03/23 Ordered By: Joseph Ambrosio Referrals: Jack Purcell DO [Primary Care Provider] - Discharge Diet: Regular Discharge Activity: Resume usual activity Discharge Attestations Time Spent in Discharge Care*: greater than 30 min Quality Metrics Clinical Quality Measures [ No reported AMI, CVA or VTE this stay] Coding Level of Care Code Acute Code for Chg Fwd Diagnoses Acute respiratory failure J96.00 Aspiration pneumonia J69.0 Aspiration pneumonitis J69.0 Congestive heart failure I50.9 Pulmonary edema J81.1 TANO (acute kidney injury) N17.9 Protein calorie malnutrition E46 Physical deconditioning R53.81 Muscle wasting M62.50 NSTEMI (non-ST elevated myocardial infarction) I21.4 Elevated d-dimer R79.89 Right leg DVT I82.401 Pulmonary embolism I26.99 Shock R57.9 Acute renal failure N17.9 Septic shock A41.9; R65.21 Pressure-induced deep tissue damage of sacral region L89.156 Encounter for hospice care Z51.5
--- NOTE | 2023-02-03 11:19 | PC.SOCIAL ---
IMM Updated Updated pt's guardian Jack Farias on IMM. No questions voiced. A copy is at pt's bedside.
--- NOTE | 2023-02-03 14:00 | PC.NURSE ---
Patient has been transitioned to comfort care and will be transferred back to [facility]. Nurse disconnected monitoring devices. Called report to Noa Krishna at [facility] detention care transfer report sheet filled out. Currently waiting on ride from medicaid whihc could be here any time in next 2 hours.
--- NOTE | 2023-02-03 17:07 | PC.NURSE ---
[place] and Rj from [facility] came to transport patien to [facility]. nurse asssited crew in transferring patient to [facility]. dischargepacket and facesheet provided to ems crew to give to [facility].
== END 2023-02-03 17:10 | disposition hospice, inpatient (51) | DRG 871 ==
LOC: ER 18:30 → MEDSURG 18:48 → ICU 20:02
PROVIDERS: Internal Medicine; Admitting Provider Family Medicine; Emergency Provider Emergency Medicine; PCP Family Medicine; Visit Provider Family Medicine
DX: A41.9 Sepsis, unspecified organism (principal); I21.A1 Myocardial infarction type 2; I26.99 Other pulmonary embolism without acute cor pulmonale; I50.23 Acute on chronic systolic (congestive) heart failure; R65.21 Severe sepsis with septic shock; J96.01 Acute respiratory failure with hypoxia; J69.0 Pneumonitis due to inhalation of food and vomit; R57.8 Other shock; I82.411 Acute embolism and thrombosis of right femoral vein; N17.9 Acute kidney failure, unspecified; E46 Unspecified protein-calorie malnutrition; G93.40 Encephalopathy, unspecified; G30.9 Alzheimer's disease, unspecified; F02.80 Dementia in other diseases classified elsewhere, unspecified severity, without behavioral disturbance, psychotic disturbance, mood disturbance, and anxiety; E11.9 Type 2 diabetes mellitus without complications; F20.9 Schizophrenia, unspecified; Z66 Do not resuscitate; Z86.16 Personal history of COVID-19; I11.0 Hypertensive heart disease with heart failure; L97.529 Non-pressure chronic ulcer of other part of left foot with unspecified severity; D64.9 Anemia, unspecified; L89.156 Pressure-induced deep tissue damage of sacral region; M62.50 Muscle wasting and atrophy, not elsewhere classified, unspecified site
CPT/HCPCS: 36415; 36416; 36573; 36592; 71045; 71250; 74230; 80048; 80053; 81001; 82330; 82550; 82728; 82803; 82962; 83605; 83735; 83880; 84100; 84145; 84443; 84484; 85025; 85610; 85730; 86140; 86850; 86900; 86920; 87040; 87086; 87486; 87581; 87633; 92523; 92610; 92611; 93005; 93970; 94640; 96361; 96372; 96374; 96375; 96376; 99285; C1751; C9113; J1644; J1650; J1815; J1940; J2270; J2543; J2920; J2930; J3475; J7626; P9046